=== PATIENT | male | born 1965 | race Caucasian/White ===

== ENCOUNTER 2016-06-11 04:45 | Inpatient (IN) | payer OTHER ==
[2016-06-11] VITALS (24 sets, daily range): BP systolic 91–154; BP diastolic 50–90; PULSE 85–116; RESP 12–26; TEMP 98.1–101; O2SAT 95–100
[~2016-06-11] VITALS: Ht 170.2 cm; Wt 87.5 kg
[~2016-06-11 04:45] MED LIST: GLIP5 OR; GLUCTES27 XX; IBUP800 PO; LEVEMIR SQ; LISI2.5T3 PO; PIOG30 PO; [UNRECOGNIZED DRUG - OTHER] TOP; [UNRECOGNIZED DRUG - SUPPLY] SQ
[2016-06-11] MEDS ORDERED: SODIUM CHLOR 0.9% 1000 ML INJ 1,000 ML IV ONE ×4 (05:05→06:00)
[2016-06-11] MEDS ORDERED: NOVONP2 SQ ×2 (05:06)
[2016-06-11] MEDS ORDERED: CALCIUM GLUCONATE 10% 1 GM/10 ML VIAL SLOW IVP ONE (05:15)
[2016-06-11] MEDS ORDERED: SODIUM CHLORIDE 0.9% FLUSH 5 ML FLUSH IVF PRN (05:15)
[2016-06-11] MEDS ORDERED: INSULIN HUMAN REGULAR 1,000 UNITS/10 ML VIAL IV PUSH ONE ×4 (05:15→18:30)
[2016-06-11] MEDS ORDERED: SODIUM BICARBONATE 8.4% SOLN 50 MEQ/50 ML VIAL SLOW IVP ONE (05:15)
[2016-06-11] MEDS ORDERED: SODIUM POLYSTYRENE SULFONATE SUSP 15 GM/60 ML CUP PO ONE (05:15)
[2016-06-11 05:22] LABS: BLOOD GAS BASE EXCESS -27.4 mmol/L (-2-2); BLOOD GAS HCO3 3 mmol/L (22-26); BLOOD GAS METHEMOGLOBIN 2.5 % (0-2); BLOOD GAS O2 HGB SATURATION 92 % (90-100); BLOOD GAS OXYGEN CONTENT 15.6 Vol % (12.0-20.0); BLOOD GAS PCO2 16 mmHg (38-42); BLOOD GAS PO2 132 mmHG (61-120); BLOOD GAS TOTAL HGB 11.9 G/DL (12.0-16.0); CRITICAL VALUE YES; DRAW SITE RT RADIAL; FIO2 21 %; NUMBER OF ARTERIAL PUNCTURES 1; OXYGEN DEVICE ROOM AIR; STAT YES; TEMP CORR TO 98.6; ULNAR PULSE PRESENT
--- NOTE | 2016-06-11 05:23 | PD ---
HPI Chief Complaint: General Weakness Time Seen by Provider: 05:05 Travel History International Travel<30 days: No Contact w/Intl Traveler<30days: No History of Present Illness HPI Patient's 50 years old. He has insulin-dependent diabetes. He arrives by EMS. Blood sugar at home was read as "high." The patient has difficulty answering questions due to altered mental status. He states that he has and has not been compliant with his insulin. He states he drank orange vodka last night. Our bedside glucose" high." Hyperglycemia protocol initiated. Shortly after IV fluids were initiated the patient self discontinued his IV and began sucking on the saline. Initial ABG was 6.88/16/2.9 with a base excess of -27.4. Patient was intubated shortly thereafter. PFSH Past Medical History Arthritis: No Asthma: No Autoimmune Disease: No Blood Disorders: No Anxiety: No Depression: No Heart Rhythm Problems: No Cancer: No Cardiovascular Problems: No High Cholesterol: No Chemotherapy: No Chest Pain: No Congestive Heart Failure: No COPD: No Cerebrovascular Accident: No Diabetes: Yes (INSULIN DEPENDENT) Patient Takes Glucophage: No Diminished Hearing: No Endocrine: Yes GERD: No Glaucoma: No Genitourinary: No Headaches: No Hepatitis: No Hiatal Hernia: No Hypertension: No Immune Disorder: No Kidney Stones: No Musculoskeletal: No Neurologic: No Psychiatric: No Reproductive: No Respiratory: No Immunizations Current: Yes Migraines: No Myocardial Infarction: No Radiation Therapy: No Renal Failure: No Seizures: Yes (DIABETIC SEIZURE) Sickle Cell Disease: No Sleep Apnea: No Thyroid Disease: No Ulcer: No Past Surgical History Abdominal Surgery: No AICD: No Appendectomy: No Arteriovenous Shunt: No Cardiac Surgery: No Cholecystectomy: No Ear Surgery: No Endocrine Surgery: No Eye Surgery: No Genitourinary Surgery: No Gynecologic Surgery: No Insulin Pump: No Joint Replacement: No Oral Surgery: No Pacemaker: No Thoracic Surgery: No Social History Alcohol Use: No Tobacco Use: Yes (1- 2 PPD) Substance Use: No Allergies-Medications (Allergen,Severity, Reaction): Coded Allergies: Metformin (Verified Adverse Reaction, Mild, Diarrhea, 06/11/16) Reported Meds & Prescriptions Reported Meds & Active Scripts Active Contour Next Blood Glucose Test Strip #25 (Blood Glucose Test Strips) Strp 1 Strip XX TID [Kimberly Contour Strips] 1 Unit TOP TID [monoject1 cc syringe] 1 Syringe SQ TID Reported Novolin N Inj (Insulin Human NPH) 1,000 Unit/10 Ml Vial 0 SQ DIRECTED Sliding Scale As Directed. Novolin N Inj (Insulin Human NPH) 1,000 Unit/10 Ml Vial 30 Units SQ DAILY Review of Systems ROS Limitations: Clinical Condition Physical Exam Narrative GENERAL: 50-year-old male moderate to severe distress and cooperative SKIN: Warm and dry. HEAD: Atraumatic. Normocephalic. EYES: Pupils equal and round. No scleral icterus. No injection or drainage. ENT: No nasal bleeding or discharge. Mucous membranes dry. NECK: Trachea midline. No JVD. CARDIOVASCULAR: Mild tachycardia. Regular rhythm. RESPIRATORY: Mild tachypnea. Lungs clear. GASTROINTESTINAL: Abdomen soft, non-tender, nondistended. Hepatic and splenic margins not palpable. MUSCULOSKELETAL: No obvious deformities. No clubbing. No cyanosis. No edema. NEUROLOGICAL: Responds to voice. Moves all extremities. Speech is comprehensive although the patient is slow to respond. PSYCHIATRIC: unable to assess. Data Data Last Documented VS Vital Signs Date Time Temp Pulse Resp B/P Pulse Ox O2 Delivery O2 Flow Rate FiO2 06/11/16 06:46 108 18 136/78 99 Ventilator 70 06/11/16 05:55 2 06/11/16 04:53 98.9 Orders Electrocardiogram (06/11/16 05:05) Complete Blood Count With Diff (06/11/16 05:05) Comprehensive Metabolic Panel (06/11/16 05:05) Magnesium (Mg) (06/11/16 05:05) Phosphorus (Po4) (06/11/16 05:05) Beta Hydroxybutyrate (Acetone) (06/11/16 05:05) Urinalysis - C+S If Indicated (06/11/16 05:05) Arterial Blood Gas (Abg) (06/11/16 05:05) Blood Glucose (06/11/16 05:05) Blood Glucose (06/11/16 06:05) Ecg Monitoring (06/11/16 05:05) Iv Access Insert/Monitor (06/11/16 05:05) Oximetry (06/11/16 05:05) Oxygen Administration (06/11/16 05:05) NPO (06/11/16 05:05) Sodium Chlor 0.9% 1000 Ml Inj (Ns 1000 M (06/11/16 05:05) Sodium Chlor 0.9% 1000 Ml Inj (Ns 1000 M (06/11/16 05:35) Sodium Chloride 0.9% Flush (Ns Flush) (06/11/16 05:15) Sodium Chlor 0.9% 1000 Ml Inj (Ns 1000 M (06/11/16 05:05) Lipase (06/11/16 05:05) Insulin Human Regular Inj (Novolin R Inj (06/11/16 05:15) Calcium Gluconate Inj (Calcium Gluconate (06/11/16 05:15) Sodium Bicarbonate 8.4% Inj (Sodium Bica (06/11/16 05:15) Sodium Polysty Sulfate Liq (Kayexalate L (06/11/16 05:15) Alcohol (Ethanol) (06/11/16 05:21) Drug Screen, Random Urine (06/11/16 05:21) Propofol 1000 Mg/100 Ml Inj (Diprivan 10 (06/11/16 05:51) Etomidate Inj (Amidate Inj) (06/11/16 05:51) Rocuronium Inj (Zemuron Inj) (06/11/16 05:52) Chest, Single Ap (06/11/16 ) Arterial Blood Gas (Abg) (06/11/16 ) Propofol 1000 Mg/100 Ml Inj (Diprivan 10 (06/11/16 06:00) Etomidate Inj (Amidate Inj) (06/11/16 06:00) Rocuronium Inj (Zemuron Inj) (06/11/16 06:00) Sodium Chlor 0.9% 1000 Ml Inj (Ns 1000 M (06/11/16 06:00) Stephen-Gastric Tube Insert/Mon (06/11/16 06:05) Urinary Catheter Insert/Apply (06/11/16 06:05) B-Type Natriuretic Peptide (06/11/16 06:44) Piperacil-Tazo 2.25 Gm Premix (Zosyn 2.2 (06/11/16 07:15) Insulin Human Regular Inj (Novolin R Inj (06/11/16 07:15) Admit Order (Ed Use Only) (06/11/16 07:15) Labs Laboratory Tests Test 2/19/06/11/16 06/11/16 06/11/16 05:05 05:08 06:00 06:35 Blood Gas Puncture Site RT RADIAL RT RADIAL Blood Gas Patient Temperature 98.6 98.6 Blood Gas HCO3 3 mmol/L 8 mmol/L Blood Gas Base Excess -27.4 mmol/L -23.0 mmol/L Blood Gas Oxygen Saturation 92 % 88 % Arterial Blood pH 6.88 6.85 Arterial Blood Partial 16 mmHg 46 mmHg Pressure CO2 Arterial Blood Partial 132 mmHG 91 mmHG Pressure O2 Arterial Blood Oxygen Content 15.6 Vol % 15.4 Vol % Arterial Blood 2.0 % 1.5 % Carboxyhemoglobin Arterial Blood Methemoglobin 2.5 % 2.6 % Blood Gas Hemoglobin 11.9 G/DL 12.3 G/DL Oxygen Delivery Device ROOM AIR VENTILATOR Blood Gas Inspired Oxygen 21 % 70 % Sodium Level 130 MEQ/L Potassium Level 7.3 MEQ/L Chloride Level 97 MEQ/L Carbon Dioxide Level LESS THAN 5.0 MEQ/L Anion Gap 28 MEQ/L Blood Urea Nitrogen 52 MG/DL Creatinine 3.77 MG/DL Estimat Glomerular Filtration 17 ML/MIN Rate Random Glucose 1100 MG/DL Calcium Level 6.9 MG/DL Protein Corrected Calcium 7.7 MG/DL Phosphorus Level 8.8 MG/DL Magnesium Level 2.9 MG/DL Total Bilirubin 0.6 MG/DL Aspartate Amino Transf 30 U/L (AST/SGOT) Alanine Aminotransferase 34 U/L (ALT/SGPT) Alkaline Phosphatase 110 U/L Total Protein 5.5 GM/DL Albumin 2.6 GM/DL Lipase 111 U/L B-Hydroxybutyrate 10.70 MMOL/L Urine Opiates Screen NEG Urine Barbiturates Screen NEG Urine Amphetamines Screen NEG Urine Benzodiazepines Screen NEG Urine Cocaine Screen POS Urine Cannabinoids Screen NEG Blood Gas Ventilator Setting AC18/500 5 PEEP MDM Medical Decision Making Medical Screen Exam Complete: Yes Emergency Medical Condition: Yes Medical Record Reviewed: Yes Differential Diagnosis Diabetic ketoacidosis, respiratory failure, electrolyte imbalance, nonketotic hyperglycemic state, drug abuse Narrative Course CBC & BMP Diagram 06/11/16 05:08 Potassium 7.3 Anion gap 28 Random glucose 1100 Magnesium 2.9 Albumin 2.6 Lipase 111 Betad 6.88 / 16.2 / 2.8 / -27.4 6.85 / 46.3 / 7.7 BE -23 AC 18/500 70% PEEP 5 10 units of insulin given upon arrival along with 3 g of calcium gluconate 150 mEq of bicarbonate 15 g Kayexalate. 3 L saline ordered. Zosyn started. Patient intubated. He is suffering with severe DKA. He'll be admitted to the [facility]. Discussed with Dr. Brown. Critical Care Narrative Aggregate critical care time was 35 minutes. Time to perform other separately billable procedures was not included in the critical care time. My time did not include minutes spent treating any other patients simultaneously or on activities that did not directly contribute to the patient's treatment. The services I provided to this patient were to treat and/or prevent clinically significant deterioration that could result in: Cardiopulmonary arrest, arrhythmia I provided critical care services requiring my management, as noted below: Chart data review, documentation time, medication orders and management, vital sign assessments/reviewing monitor data, ordering and reviewing lab tests, ordering and interpreting/reviewing x-rays and diagnostic studies, care of the patient and discussion of the patient with the admitting physicians. Procedures Procedure Narrative After the risks and benefits were discussed the following procedure was performed: INTUBATION: The patient was put in optimal position for the procedure. Rapid sequence intubation was initiated by me using 20 milligrams of etomidate IV and 50 milligrams of Rocuronium IV. The patient was intubated with a 8-0 cuffed endotracheal tube. Tube placement was confirmed by visualization of the tube and balloon passing through the cords, capnometry and subsequent chest x-ray. Breath sounds were equal and well aerated bilaterally postintubation. No breath sounds over stomach. Patient tolerated procedure well. Diagnosis Primary Impression: Diabetic ketoacidosis Qualified Code: E10.10 - Diabetic ketoacidosis without coma associated with type 1 diabetes mellitus Additional Impressions: Hyperkalemia Renal failure Respiratory failure Qualified Code: J96.20 - Acute on chronic respiratory failure, unspecified whether with hypoxia or hypercapnia Admitting Information Admitting Physician Requests: Gerardo Padilla MD Jun 11, 2016 05:23
[2016-06-11] MEDS ORDERED: ETOMIDATE 20 MG/10 ML VIAL ONE (05:51)
[2016-06-11] MEDS ORDERED: PROPOFOL 1000 MG/100 ML INJ 100 ML ONE (05:51)
[2016-06-11] MEDS ORDERED: ROCURONIUM INJ 50 MG/5 ML VIAL ONE (05:52)
[2016-06-11] MEDS ORDERED: ETOMIDATE 20 MG/10 ML VIAL IV PUSH ONE (06:00)
[2016-06-11] MEDS ORDERED: ROCURONIUM INJ 50 MG/5 ML VIAL IV ONE (06:00)
[2016-06-11] MEDS: PROPOFOL 1000 MG/100 ML INJ 100 ML IV SCH ×3 (06:04→13:23)
--- NOTE | 2016-06-11 06:29 | RADRPT ---
EXAM DATE/TIME: 06/11/2016 06:08 [facility] COMPARISON: No previous studies available for comparison. INDICATIONS : Post intubation. MEDICAL HISTORY : Diabetes. SURGICAL HISTORY : None. ENCOUNTER: Initial ACUITY: 1 day PAIN SCORE: Non-responsive. LOCATION: Bilateral chest FINDINGS: The cardiac silhouette is enlarged in transverse diameter. Endotracheal tube is in good position abov e the bobby. A nasogastric tube is in place with its tip in the stomach. There are findings of conge stive heart failure with interstitial and alveolar opacity bilaterally. CONCLUSION: 1. Cardiomegaly and findings of congestive heart failure. 2. Satisfactory position of endotracheal tube as above. Dipesh Miller MD on June 11, 2016 at 6:27 Board Certified Radiologist. This report was verified electronically.
[2016-06-11 06:34] LABS: AMPHETAMINE, URINE NEG (NEG); BARBITURATES, URINE NEG (NEG); COCAINE, URINE POS (NEG)
[2016-06-11 06:35] LABS: ALKALINE PHOSPHATASE 110 U/L (45-117); ALT (GPT) 34 U/L (12-78); ANION GAP 28 MEQ/L (5-15); AST (GOT) 30 U/L (15-37); BICARBONATE LESS THAN 5.0 MEQ/L (21.0-32.0); BLOOD UREA NITROGEN 52 MG/DL (7-18); CALCIUM-PROTEIN CORRECTED 7.7 MG/DL (8.5-10.1); CHLORIDE 97 MEQ/L (98-107); GLOMERULAR FILTRATION RATE 17 ML/MIN (>89); MAGNESIUM 2.9 MG/DL (1.5-2.5); SODIUM (NA) 130 MEQ/L (136-145); TOTAL BILIRUBIN ADULT 0.6 MG/DL (0.2-1.0)
[2016-06-11 06:44] LABS: BLOOD GAS CARBOXYHEMOGLOBIN 1.5 % (0-4); BLOOD GAS HCO3 8 mmol/L (22-26); BLOOD GAS METHEMOGLOBIN 2.6 % (0-2); BLOOD GAS O2 HGB SATURATION 88 % (90-100); BLOOD GAS OXYGEN CONTENT 15.4 Vol % (12.0-20.0); BLOOD GAS PCO2 46 mmHg (38-42); BLOOD GAS PO2 91 mmHG (61-120); BLOOD GAS TOTAL HGB 12.3 G/DL (12.0-16.0); CRITICAL VALUE YES; OXYGEN DEVICE VENTILATOR; TEMP CORR TO 98.6
[2016-06-11 06:45] LABS: DRAW SITE RT RADIAL; FIO2 70 %; NUMBER OF ARTERIAL PUNCTURES 1; STAT YES; ULNAR PULSE PRESENT; VENT SETTINGS AC18/500 5 PEEP
[2016-06-11 06:49] LABS: POTASSIUM 7.3 MEQ/L (3.5-5.1)
[2016-06-11] MEDS ORDERED: POTASSIUM CHLOR 20 MEQ PREMIX 100 ML IV PRN ×7 (07:15→18:30)
[2016-06-11] MEDS ORDERED: SODIUM BICARBONATE 8.4% SOLN 50 MEQ/50 ML VIAL IV PRN ×4 (07:15→18:30)
[2016-06-11] MEDS ORDERED: SODIUM PHOSPHATE INJ 15 MMOL in SODIUM CHLORIDE 0.9% INJ 100 ML IV PRN ×2 (07:15→18:30)
[2016-06-11] MEDS ORDERED: CHLORHEXIDINE GLUCONATE 2 % 1 PACK (2 CLOTHS) TOP PRN (07:15)
[2016-06-11] MEDS ORDERED: SODIUM CHLOR 0.9% 1000 ML INJ 1,000 ML IV SCH ×3 (07:15→18:30)
[2016-06-11] MEDS ORDERED: MISCELLANEOUS NURSING INFORMATION XX SCH (07:15)
[2016-06-11] MEDS: DEXT 5%-NACL 0.9% 1000 ML INJ 1,000 ML IV SCH ×4 (07:15→20:23)
[2016-06-11] MEDS ORDERED: PIPERACIL-TAZO 2.25 GM PREMIX 50 ML IV ONE (07:15)
[2016-06-11] MEDS ORDERED: fentaNYL DRIP 250 ML ONE (07:40)
[2016-06-11 07:48] LABS: BACTERIA, URINE RARE /hpf; BLOOD, URINE MOD (NEG); GLUCOSE,URINE 1000 mg/dL (NEG); HYALINE CAST, URINE 6 /lpf (RARE); KETONE, URINE 40 mg/dL (NEG); MUCUS URINE FEW /lpf (OCC); NITRITE,URINE NEG (NEG); SQUAMOUS EPITHELIAL CELL URINE 1 /hpf (0-5); TRANSITIONAL EPI CELLS, URINE <1 /hpf; URINE COLOR LIGHT-YELLOW (YELLW/STRAW)
[2016-06-11 07:51] LABS: COMMENT (UR) CULT NOT INDICATED; CULTURE IF INDICATED CULT NOT INDICATED
[2016-06-11] MEDS: SODIUM CHLOR 0.9% 1000 ML INJ 1,000 ML IV SCH ×2 (07:51→09:30)
[2016-06-11] MEDS: fentaNYL DRIP 250 ML IV SCH (07:52)
[2016-06-11] MEDS: CHLORHEXIDINE 0.12% (ORAL KIT) 15 ML CUP MT SCH ×2 (08:00→20:19)
[2016-06-11] MEDS ORDERED: MIDAZOLAM HCL 5 MG/ML VIAL (1 ML) ONE (08:11)
[2016-06-11] MEDS ORDERED: MIDAZOLAM 100 MG/ML INJ 100 ML IV SCH (08:15)
[2016-06-11] MEDS ORDERED: MIDAZOLAM HCL 5 MG/5 ML VIAL IV PUSH ONE (08:15)
[2016-06-11 08:42] LABS: AUTOMATED NEUTROPHIL # 20.8 TH/MM3 (1.8-7.7); BASOPHIL # 0.2 TH/MM3 (0-0.2); BASOPHIL % 0.8 % (0.0-2.0); HEMATOCRIT 42.7 % (39.0-51.0); LYMPH % 5.6 % (9.0-44.0); LYMPHOCYTE # 1.4 TH/MM3 (1.0-4.8); MEAN CELL VOLUME 108.8 FL (80.0-100.0); MEAN CORPUSCULAR HEMOGLOBIN 31.6 PG (27.0-34.0); MONO % 11.8 % (0.0-8.0); NEUT % 81.8 % (16.0-70.0); PLATELET COUNT 214 TH/MM3 (150-450); RED BLOOD COUNT 3.92 MIL/MM3 (4.50-5.90); RED CELL DISTRIBUTION WIDTH 14.9 % (11.6-17.2); WHITE BLOOD COUNT 25.4 TH/MM3 (4.0-11.0)
[2016-06-11 08:48] LABS: HEMO FLAGS AUTO DIFF
[2016-06-11 09:10] LABS: POTASSIUM 6.3 MEQ/L (3.5-5.1)
[2016-06-11 09:18] LABS: BLOOD GAS BASE EXCESS -21.3 mmol/L (-2-2); BLOOD GAS CARBOXYHEMOGLOBIN 2.1 % (0-4); BLOOD GAS HCO3 7 mmol/L (22-26); BLOOD GAS METHEMOGLOBIN 2.6 % (0-2); BLOOD GAS O2 HGB SATURATION 92 % (90-100); BLOOD GAS PCO2 29 mmHg (38-42); BLOOD GAS PO2 110 mmHG (61-120); BLOOD GAS TOTAL HGB 12.3 G/DL (12.0-16.0); TEMP CORR TO 98.6
[2016-06-11 09:19] LABS: CRITICAL VALUE YES; OXYGEN DEVICE VENTILATOR; VENT SETTINGS AC/18/600/PEEP10
[2016-06-11 09:20] LABS: BANDS 19 % (0-6); METAMYELOCYTES 1 % (0-1); MYELOCYTES 1 % (0-0); NEUTROPHIL # MANUAL DIFF 22.4 TH/MM3 (1.8-7.7); PLATELET ESTIMATE SMEAR NORMAL (NORMAL); PLATELET MORPHOLOGY NORMAL (NORMAL); POLYS (SEG NEUTROPHILS) 67 % (16-70); WBC DIFF SAMPLE 100
[2016-06-11 09:20] LABS: DRAW SITE RT BRACHIAL; FIO2 60 %; NUMBER OF ARTERIAL PUNCTURES 1; STAT YES
[2016-06-11 09:21] LABS: SCAN/DIFF FINAL DIFF MANUAL
[2016-06-11] MEDS: SODIUM BICARBONATE 8.4% INJ 150 MEQ in WATER STERILE FOR INJ 850 ML IV SCH ×2 (09:32→13:26)
[2016-06-11] MEDS: INSULIN REGULAR (IV INFUSION) 100 UNITS in SODIUM CHLORIDE 0.9% INJ 99 ML IV SCH ×2 (09:32→13:29)
[2016-06-11] MEDS ORDERED: SODIUM BICARBONATE 8.4% INJ 50 MEQ/50 ML SYR IV PUSH ONE (09:45)
[2016-06-11 09:47] LABS: BLOOD UREA NITROGEN 53 MG/DL (7-18)
[2016-06-11 09:52] LABS: GLOMERULAR FILTRATION RATE 18 ML/MIN (>89)
--- NOTE | 2016-06-11 09:52 | HHI.HP ---
[facility] Service Critical Care Medicine Primary Care Physician Unknown Admission Diagnosis Severe DKA, Resp Failure, HyperK, Cocaine/EtOH Diagnosis: (1) DKA (diabetic ketoacidoses) Diagnosis: Principal (2) Acute metabolic encephalopathy Diagnosis: Principal (3) Acute respiratory failure Diagnosis: Principal (4) Acute kidney failure Diagnosis: Principal (5) Hyperkalemia Diagnosis: Principal (6) Hypothermia Diagnosis: Principal (7) Severe sepsis Diagnosis: Principal (8) High anion gap metabolic acidosis Diagnosis: Principal (9) Cocaine intoxication Diagnosis: Principal Chief Complaint: Severe DKA Cocaine intoxication Travel History International Travel<30 Days: No Contact w/Intl Traveler <30 Da: No Sepsis Criteria SIRS Criteria (2 or more): Temp > 100.9 or < 96.8, Heart rate over 90, WBC > 88607, < 4000 or > 10% bands Sepsis Criteria (SIRS+source): Infect source susp/known Severe Sepsis (+one): Acute Oliguria/Renal Failure Criteria Outcome: Meets severe sepsis criteria History of Present Illness Patient is a 50-year-old [place] male with history of type 2 diabetes history of noncompliance to medications, hypertension, cocaine abuse who was brought to the emergency department by EMS. Apparently Blood sugar at home was read as high and patient was altered. He admitted to drinking orange vodka last night. Initial ABG was 6.88/16/132 with a base excess of -27.4. Patient was intubated for agitation, airway protection and severe acidemia. His blood sugar was 1100, potassium was 7.3, beta hydroxybutyrate was 10.7 consistent with severe DKA. Patient was given 10 units IV insulin and a total of 5 L normal saline bolus in the ED. DKA protocol was ordered, not started yet. For hyperkalemia along with hypocalcemia he received 3 g of calcium gluconate 150 mEq of bicarbonate 15 g Kayexalate. Zosyn given in the ED for severe hypothermia and leukocytosis. I evaluated the patient in the ICU. Patient is profoundly hypothermic temperature 92, borderline hypotensive with systolic blood pressure in the 90s. Blood urine and sputum cultures ordered. Zosyn will be continued along with 1 dose of vancomycin. Patient will be emergently started on DKA protocol. Lactic acid is pending at this time as well as troponin. His DKA precipitated by noncompliance and sepsis however acute coronary event need to be be ruled out Review of Systems ROS Limitations: Intubated, Altered Mental Status Past Family Social History Allergies: Coded Allergies: Metformin (Verified Adverse Reaction, Mild, Diarrhea, 06/11/16) Past Medical History Type 2 diabetes with noncompliance Hypertension Substance abuse/cocaine use Tobacco use Past Surgical History Unable to obtain Reported Medications Insulin Detemir (Levemir Insulin)100 Units/Ml Inj30 Units SQ BID Pioglitazone Hcl (Actos 30 mg)30 Mg Tab1 Tab PO DAILY Lisinopril 2.5 mg (Prinivil 2.5 mg)2.5 Mg Tab1 Tab PO DAILY #30 TAB Ref 3 Glipizide 5 Mg Tab5 Mg OR DAILY #30 TAB Ref 2 Ibuprofen (Motrin 800 Mg Tab)800 Mg [id number] Mg PO TID PRN #90 TABS Ref 1 Active Ordered Medications Reviewed Family History Unable to obtain Social History Smokes one pack of cigarettes a day Urine drug screen positive for cocaine Physical Exam Vital Signs Vital Signs Date Time Temp Pulse Resp B/P Pulse Ox O2 Delivery O2 Flow Rate FiO2 06/11/16 09:11 90 18 106/84 99 Ventilator 60 06/11/16 07:31 98 16 120/75 99 Ventilator 60 06/11/16 07:27 99 60 06/11/16 06:46 108 18 136/78 99 Ventilator 70 06/11/16 06:32 106 18 147/84 99 Ventilator 70 06/11/16 06:21 110 18 151/87 100 Ventilator 70 06/11/16 06:19 113 18 153/90 100 Ventilator 70 06/11/16 06:07 108 18 154/86 99 Ventilator 06/11/16 06:01 116 18 139/78 99 06/11/16 05:55 99 70 06/11/16 05:55 103 24 129/63 100 Nasal Cannula 2 06/11/16 05:30 100 24 107/65 95 Room Air 06/11/16 04:53 98.9 85 26 91/55 Physical Exam GENERAL: 50-year-old male intubated sedated critically ill hypothermic SKIN: Cool and dry. HEAD: Atraumatic. Normocephalic. EYES: Pupils equal and round. No scleral icterus. No injection or drainage. ENT: No nasal bleeding or discharge. Mucous membranes dry. Orotracheally intubated NECK: Trachea midline. No JVD. CARDIOVASCULAR: Tachycardic. Regular rhythm. RESPIRATORY: Air entry equal bilaterally clear to auscultation GASTROINTESTINAL: Abdomen soft, non-tender, nondistended. Hepatic and splenic margins not palpable. MUSCULOSKELETAL: No obvious deformities. No clubbing. No cyanosis. No edema. NEUROLOGICAL: Intubated heavily sedated on propofol Versed and fentanyl infusions. Patient moves his head moves extremities do not follow commands Laboratory Laboratory Tests Test 06/11/16 06/11/16 06/11/16 06/11/16 05:05 05:08 06:00 06:35 Blood Gas Puncture Site RT RADIAL RT RADIAL Blood Gas Patient Temperature 98.6 98.6 Blood Gas HCO3 3 8 Blood Gas Base Excess -27.4 -23.0 Blood Gas Oxygen Saturation 92 88 Arterial Blood pH 6.88 6.85 Arterial Blood Partial 16 46 Pressure CO2 Arterial Blood Partial 132 91 Pressure O2 Arterial Blood Oxygen Content 15.6 15.4 Arterial Blood 2.0 1.5 Carboxyhemoglobin Arterial Blood Methemoglobin 2.5 2.6 Blood Gas Hemoglobin 11.9 12.3 Oxygen Delivery Device ROOM AIR VENTILATOR Blood Gas Inspired Oxygen 21 70 Sodium Level 130 Potassium Level 7.3 Chloride Level 97 Carbon Dioxide Level LESS THAN 5.0 Anion Gap 28 Blood Urea Nitrogen 52 Creatinine 3.77 Estimat Glomerular Filtration 17 Rate Random Glucose 1100 Calcium Level 6.9 Protein Corrected Calcium 7.7 Phosphorus Level 8.8 Magnesium Level 2.9 Total Bilirubin 0.6 Aspartate Amino Transf 30 (AST/SGOT) Alanine Aminotransferase 34 (ALT/SGPT) Alkaline Phosphatase 110 Total Protein 5.5 Albumin 2.6 Lipase 111 Ethyl Alcohol Level LESS THAN 3 B-Hydroxybutyrate 10.70 Urine Color LIGHT-YELLOW Urine Turbidity CLEAR Urine pH 5.0 Urine Specific [place] 1.014 Urine Protein 30 Urine Glucose (UA) 1000 Urine Ketones 40 Urine Occult Blood MOD Urine Nitrite NEG Urine Bilirubin NEG Urine Urobilinogen LESS THAN 2.0 Urine Leukocyte Esterase NEG Urine RBC LESS THAN 1 Urine WBC 4 Urine Squamous Epithelial 1 Cells Urine Transitional Epithelial <1 Cells Urine Bacteria RARE Urine Hyaline Casts 6 Urine Mucus FEW Microscopic Urinalysis Comment CULT NOT INDICATED Urine Opiates Screen NEG Urine Barbiturates Screen NEG Urine Amphetamines Screen NEG Urine Benzodiazepines Screen NEG Urine Cocaine Screen POS Urine Cannabinoids Screen NEG Blood Gas Ventilator Setting AC18/500 5 PEEP Test 2/19/17 2/19/17 2/19/17 06:56 08:15 08:28 B-Type Natriuretic Peptide 136 White Blood Count 25.4 Red Blood Count 3.92 Hemoglobin 12.4 Hematocrit 42.7 Mean Corpuscular Volume 108.8 Mean Corpuscular Hemoglobin 31.6 Mean Corpuscular Hemoglobin 29.0 Concent Red Cell Distribution Width 14.9 Platelet Count 214 Mean Platelet Volume 8.7 Neutrophils (%) (Auto) 81.8 Lymphocytes (%) (Auto) 5.6 Monocytes (%) (Auto) 11.8 Eosinophils (%) (Auto) 0.0 Basophils (%) (Auto) 0.8 Neutrophils # (Auto) 20.8 Lymphocytes # (Auto) 1.4 Monocytes # (Auto) 3.0 Eosinophils # (Auto) 0.0 Basophils # (Auto) 0.2 CBC Comment AUTO DIFF Differential Total Cells 100 Counted Neutrophils % (Manual) 67 Band Neutrophils % 19 Lymphocytes % 3 Monocytes % 9 Neutrophils # (Manual) 22.4 Metamyelocytes 1 Myelocytes 1 Differential Comment FINAL DIFF MANUAL Platelet Estimate NORMAL Platelet Morphology Comment NORMAL Potassium Level 6.3 Blood Gas Puncture Site RT BRACHIAL Blood Gas Patient Temperature 98.6 Blood Gas HCO3 7 Blood Gas Base Excess -21.3 Blood Gas Oxygen Saturation 92 Arterial Blood pH 7.03 Arterial Blood Partial 29 Pressure CO2 Arterial Blood Partial 110 Pressure O2 Arterial Blood Oxygen Content 16.0 Arterial Blood 2.1 Carboxyhemoglobin Arterial Blood Methemoglobin 2.6 Blood Gas Hemoglobin 12.3 Oxygen Delivery Device VENTILATOR Blood Gas Ventilator Setting AC/18/600/PEEP10 Blood Gas Inspired Oxygen 60 Result Diagram: 06/11/1681406/11/16814 Imaging Chest x-ray shows pulmonary vascular congestion Septic Shock Reassessment Heart: Irregular Lungs: Clear Skin: Cold Peripheral Pulses: Weak Right Radial Weak Left Radial Capillary Refill: Sluggish Assessment and Plan Assessment and Plan NEURO: Acute metabolic encephalopathy Cocaine intoxication/abuse -Propofol Versed and fentanyl for sedation and ventilator synchrony -Encephalopathy seems to be metabolic due to DKA, severe sepsis -Daily sedation vacation once more stable clinically and hemodynamically -Supplement multivitamin, thiamine RESP: Acute respiratory failure Probable pneumonia -ACV 18/600/8/60% -Spontaneous breathing trials in 24 hours -Broad spectrum antibiotics with 1 dose of vancomycin and schedule Zosyn -Ventilator bundle, DuoNeb every 6 hours and when necessary CV: Hypotension History of hypertension -Normal saline IV fluids 7 L bolus and 100 mL per hour, start bicarbonate infusion 150 a MICU bicarbonate in 1 L sterile water at 150 mL per hour -Lactic acid and troponin is pending at this time, await 2d echo -Flowtrack monitoring after placing arterial line GI: -Nothing by mouth, IV Protonix : Acute kidney failure Hyperkalemia Severe anion gap metabolic acidosis -Monitor renal function closely. Levi catheter. Aggressive fluid resuscitation as above -Renal failure most likely secondary to severe dehydration from DKA, and ATN related to sepsis -If creatinine is not improving consult nephrology -Received calcium, Kayexalate and bicarbonate in the ED, but with correction of blood sugar on insulin infusion hyperkalemia should improve ID: Severe sepsis Probable pneumonia -Check urine sputum and blood cultures -Empirically treated with 1 dose of IV vancomycin and Zosyn 3.375 g IV every 6 hours HEME: Megaloblastic anemia -Monitor CBC, CMP, coags -Supplement thiamine -Check B-12 folic acid TSH ENDO: Severe DKA Type 2 diabetes with noncompliance -Initiated on DKA protocol, give 20 units of IV regular insulin -Aggressive fluid resuscitation for DKA protocol after 7 L boluses PROPH: -Bilateral lower extremity SCDs. Heparin 5000 units subcutaneous every 12, Protonix 40 mg IV daily LINES: -Utilize peripheral IVs, central line if needed CC time 102 min excluding procedures Code Status Full Discussed Condition With Dr. Matute and bedside RN Cleo Problem Qualifiers (1) DKA (diabetic ketoacidoses): (2) Cocaine intoxication: Qualified Code: F14.921 - Cocaine intoxication, with delirium Feliz Brown MD Jun 11, 2016 09:51
[2016-06-11 09:53] LABS: ALKALINE PHOSPHATASE 136 U/L (45-117); ALT (GPT) 45 U/L (12-78); ANION GAP 26 MEQ/L (5-15); AST (GOT) 49 U/L (15-37); BICARBONATE 7.9 MEQ/L (21.0-32.0); CHLORIDE 102 MEQ/L (98-107); MAGNESIUM 3.1 MG/DL (1.5-2.5); SODIUM (NA) 136 MEQ/L (136-145); TOTAL BILIRUBIN ADULT 0.7 MG/DL (0.2-1.0)
[2016-06-11] MEDS ORDERED: VANCOMYCIN INJ 1,250 MG in SODIUM CHLOR 0.9% 250 ML INJ 250 ML IV ONE (10:00)
[2016-06-11 11:37] LABS: BLOOD GAS BASE EXCESS -18.5 mmol/L (-2-2); BLOOD GAS CARBOXYHEMOGLOBIN 1.6 % (0-4); BLOOD GAS HCO3 9 mmol/L (22-26); BLOOD GAS METHEMOGLOBIN 1.4 % (0-2); BLOOD GAS O2 HGB SATURATION 95 % (90-100); BLOOD GAS OXYGEN CONTENT 15.7 Vol % (12.0-20.0); BLOOD GAS PCO2 30 mmHg (38-42); BLOOD GAS PO2 124 mmHg (61-120); BLOOD GAS TOTAL HGB 11.5 G/DL (12.0-16.0); CRITICAL VALUE YES; DRAW SITE LT RADIAL; FIO2 40 %; NUMBER OF ARTERIAL PUNCTURES 1; OXYGEN DEVICE VENTILATOR; STAT NO; TEMP CORR TO 98.6; ULNAR PULSE PRESENT
[2016-06-11] MEDS: PIPERACIL-TAZO 3.375 GM PREMIX 50 ML IV SCH ×2 (11:42→18:23)
[2016-06-11 13:43] LABS: BICARBONATE 20.5 MEQ/L (21.0-32.0); CALCIUM-PROTEIN CORRECTED 7.9 MG/DL (8.5-10.1); MAGNESIUM 2.6 MG/DL (1.5-2.5); POTASSIUM 4.1 MEQ/L (3.5-5.1); TOTAL BILIRUBIN ADULT 0.5 MG/DL (0.2-1.0)
[2016-06-11] MEDS: POTASSIUM CHLOR 20 MEQ PREMIX 100 ML IV PRN ×2 (14:07→15:37)
[2016-06-11 14:08] LABS: BLOOD GAS BASE EXCESS -10.2 mmol/L (-2-2); BLOOD GAS CARBOXYHEMOGLOBIN 1.7 % (0-4); BLOOD GAS HCO3 15 mmol/L (22-26); BLOOD GAS METHEMOGLOBIN 1.3 % (0-2); BLOOD GAS O2 HGB SATURATION 96 % (90-100); BLOOD GAS OXYGEN CONTENT 15.2 Vol % (12.0-20.0); BLOOD GAS PCO2 34 mmHg (38-42); BLOOD GAS PO2 126 mmHg (61-120); BLOOD GAS TOTAL HGB 11.1 G/DL (12.0-16.0); CRITICAL VALUE YES; OXYGEN DEVICE VENTILATOR; TEMP CORR TO 98.6
[2016-06-11 14:09] LABS: VENT SETTINGS CPAP+8/PS+10
[2016-06-11 14:10] LABS: DRAW SITE LT RADIAL; FIO2 35 %; NUMBER OF ARTERIAL PUNCTURES 1; STAT NO; ULNAR PULSE PRESENT
--- NOTE | 2016-06-11 14:22 | EKG ---
Date Performed: 06/11/2016 Time Performed: 05:00:07 PTAGE: 50 years EKG: First degree AV block Right Bundle branch block Left axis deviation Compared to previous tr acing, the Right bundle branch block, left axis deviation, and first degree AV block are new ABNORMAL ECG PREVIOUS TRACING : 08/06/2012 08.44 DOCTOR: Jea nPaul Mei Interpretating Date/Time 06/11/2016 15:07:06
[2016-06-11] MEDS ORDERED: DEXT 5%-NACL 0.9% 1000 ML INJ 1,000 ML IV SCH (18:30)
[2016-06-11] MEDS: ACETAMINOPHEN 650 MG/20.3 ML UDC PO PRN (21:16)
[2016-06-11 21:41] LABS: ANION GAP 7 MEQ/L (5-15); BETA-HYDROXYBUTYRATE 0.55 MMOL/L (0.00-0.39); BICARBONATE 27.1 MEQ/L (21.0-32.0); BLOOD UREA NITROGEN 46 MG/DL (7-18); CHLORIDE 116 MEQ/L (98-107); GLOMERULAR FILTRATION RATE 24 ML/MIN (>89); MAGNESIUM 2.5 MG/DL (1.5-2.5); POTASSIUM 3.8 MEQ/L (3.5-5.1); SODIUM (NA) 150 MEQ/L (136-145)
[2016-06-11 21:57] LABS: CALCIUM-PROTEIN CORRECTED 8.2 MG/DL (8.5-10.1)
[2016-06-11] MEDS ORDERED: POTASSIUM PHOSPHATE INJ 15 MMOL in SODIUM CHLORIDE 0.9% INJ 150 ML IV ONE (22:30)
[2016-06-12] VITALS (18 sets, daily range): BP systolic 102–107; BP diastolic 57–72; PULSE 82–102; RESP 18–28; TEMP 98.8–100.4; O2SAT 98–100
--- NOTE | 2016-06-12 00:31 | RADRPT ---
EXAM DATE/TIME: 06/12/2016 00:05 [facility] COMPARISON: No previous studies available for comparison. INDICATIONS : Altered mental status secondary to respiratory failure and DKA. RADIATION DOSE: 44.18 CTDIvol (mGy) MEDICAL HISTORY : Diabetes mellitus type 2. SURGICAL HISTORY : None. ENCOUNTER: Initial ACUITY: 1 day PAIN SCALE: Non-responsive LOCATION: cranial TECHNIQUE: Multiple contiguous axial images were obtained of the head. Using automated exposure control and adj ustment of the mA and/or kV according to patient size, radiation dose was kept as low as reasonably a chievable to obtain optimal diagnostic quality images. FINDINGS: CEREBRUM: The ventricles are normal for age. No evidence of midline shift, mass lesion, hemorrhage or acute in farction. There is a 0.8 cm hypodensity in the right frontal lobe. No mass effect is seen. No extra- axial fluid collections are seen.POSTERIOR FOSSA: The cerebellum and brainstem are intact. The 4th ventricle is midline. The cerebellopontine angle i s unremarkable. EXTRACRANIAL: The visualized portion of the orbits is intact. SKULL: The calvaria is intact. No evidence of skull fracture. CONCLUSION: 1. No acute abnormality seen. 2. 0.8 cm hypodensity in the right frontal lobe likely representing an area of focal encephalomalacia . No mass effect is seen. Kevin Augustin MD on June 12, 2016 at 0:25 Board Certified Radiologist. This report was verified electronically.
[2016-06-12] MEDS ORDERED: ASPIRIN 81 MG CHEW TAB CHEW ONE (01:15)
[2016-06-12] MEDS: DEXT 5%-NACL 0.9% 1000 ML INJ 1,000 ML IV SCH (01:24)
[2016-06-12] MEDS: PIPERACIL-TAZO 3.375 GM PREMIX 50 ML IV SCH ×4 (01:24→23:36)
[2016-06-12] MEDS: CHLORHEXIDINE GLUCONATE 2 % 1 PACK (2 CLOTHS) TOP SCH (01:24)
[2016-06-12 01:26] LABS: BICARBONATE 29.9 MEQ/L (21.0-32.0); MAGNESIUM 2.5 MG/DL (1.5-2.5); POTASSIUM 3.7 MEQ/L (3.5-5.1)
[2016-06-12 01:50] LABS: CALCIUM-PROTEIN CORRECTED 8.3 MG/DL (8.5-10.1)
[2016-06-12] MEDS ORDERED: HEPARIN SODIUM - IV 10,000 UNITS/10 ML VIAL IV ONE (02:00)
[2016-06-12] MEDS ORDERED: DEXTROSE 50% IN WATER 50 ML VIAL(D50) IV PUSH PRN ×3 (02:15→20:00)
[2016-06-12] MEDS ORDERED: INSULIN REGULAR (IV INFUSION) 100 UNITS in SODIUM CHLORIDE 0.9% INJ 99 ML IV SCH ×2 (02:15→21:00)
[2016-06-12] MEDS ORDERED: MISC INFORMATION XX ONE ×2 (02:15→20:00)
[2016-06-12] MEDS ORDERED: D5-1/2 NS + KCL 20 MEQ INJ 1,000 ML IV SCH (02:15)
[2016-06-12] MEDS ORDERED: GLUCAGON 1 MG/ML VIAL OTHER PRN ×2 (02:15→10:45)
[2016-06-12] MEDS ORDERED: INSULIN ASPART SUPPLEMENTAL SCALE SQ SCH (02:15)
[2016-06-12 02:20] LABS: HEMATOCRIT 31.7 % (39.0-51.0); MEAN CELL VOLUME 93.1 FL (80.0-100.0); MEAN CORPUSCULAR HEMOGLOBIN 31.5 PG (27.0-34.0); MEAN CORPUSCULAR HGB CONC 33.8 % (32.0-36.0); PLATELET COUNT 174 TH/MM3 (150-450); RED BLOOD COUNT 3.41 MIL/MM3 (4.50-5.90); RED CELL DISTRIBUTION WIDTH 13.4 % (11.6-17.2); REVIEW FLAG FINAL; WHITE BLOOD COUNT 15.4 TH/MM3 (4.0-11.0)
[2016-06-12 02:32] LABS: APTT (PATIENT) 26.4 SEC (24.3-30.1); PROTHROMBIN TIME - PATIENT 11.4 SEC (9.8-11.6)
[2016-06-12] MEDS: HEPARIN-D5W INJ 250 ML IV SCH ×2 (02:56→20:49)
--- NOTE | 2016-06-12 05:07 | RADRPT ---
EXAM DATE/TIME: 06/12/2016 03:52 [facility] COMPARISON: CHEST SINGLE AP, June 11, 2016, 6:08. INDICATIONS : Shortness of breath, possible pulmonary disease. MEDICAL HISTORY : Diabetes mellitus type II. SURGICAL HISTORY : None. ENCOUNTER: Subsequent ACUITY: 2 days PAIN SCORE: Non-responsive. LOCATION: Bilateral chest FINDINGS: ET tube and NG tube are well placed. The heart size is normal. The lungs are grossly clear. CONCLUSION: No acute disease. Kevin Augustin MD on June 12, 2016 at 5:06 Board Certified Radiologist. This report was verified electronically.
[2016-06-12] MEDS ORDERED: HEPARIN SODIUM - IV 10,000 UNITS/10 ML VIAL IV PRN ×2 (08:00)
[2016-06-12] MEDS: PROPOFOL 1000 MG/100 ML INJ 100 ML IV SCH ×3 (08:10→20:37)
[2016-06-12] MEDS: THIAMINE INJ 100 MG in SODIUM CHLORIDE 0.9% INJ 100 ML IV SCH (08:10)
[2016-06-12] MEDS: CHLORHEXIDINE 0.12% (ORAL KIT) 15 ML CUP MT SCH ×2 (08:12→20:00)
[2016-06-12 09:36] LABS: APTT (PATIENT) 51.3 SEC (24.3-30.1)
[2016-06-12 10:08] LABS: BICARBONATE 27.8 MEQ/L (21.0-32.0); MAGNESIUM 2.5 MG/DL (1.5-2.5); POTASSIUM 3.5 MEQ/L (3.5-5.1)
[2016-06-12 10:21] LABS: CALCIUM-PROTEIN CORRECTED 8.3 MG/DL (8.5-10.1)
[2016-06-12] MEDS ORDERED: CALCIUM GLUCONATE INJ 1 GM in SODIUM CHLORIDE 0.9% INJ 100 ML IV ONE (10:45)
--- NOTE | 2016-06-12 10:59 | HHI.CCPN ---
Subjective Remarks/Hospital Course Patient is a 50-year-old [place] male with history of type 2 diabetes history of noncompliance to medications, hypertension, cocaine abuse who was brought to the emergency department by EMS. Apparently Blood sugar at home was read as high and patient was altered. He admitted to drinking orange vodka last night. Initial ABG was 6.88/16/132 with a base excess of -27.4. Patient was intubated for agitation, airway protection and severe acidemia. His blood sugar was 1100, potassium was 7.3, beta hydroxybutyrate was 10.7 consistent with severe DKA. Patient was given 10 units IV insulin and a total of 5 L normal saline bolus in the ED. DKA protocol was ordered, not started yet. For hyperkalemia along with hypocalcemia he received 3 g of calcium gluconate 150 mEq of bicarbonate 15 g Kayexalate. Zosyn given in the ED for severe hypothermia and leukocytosis. I evaluated the patient in the ICU. Patient is profoundly hypothermic temperature 92, borderline hypotensive with systolic blood pressure in the 90s. Blood urine and sputum cultures ordered. Zosyn will be continued along with 1 dose of vancomycin. Patient will be emergently started on DKA protocol. Lactic acid is pending at this time as well as troponin. His DKA precipitated by noncompliance and sepsis however acute coronary event need to be be ruled out 06/12 Patient is sedated with Fentanyl, Diprivan and intubated. On Insulin drip 7units/hr ( AG closed) started on heparin drip overnight as troponin increased 1.31 Objective Vital Signs Date Time Temp Pulse Resp B/P Pulse Ox O2 Delivery O2 Flow Rate FiO2 06/12/16 08:01 99 35 06/12/16 06:00 91 06/12/16 04:00 99.5 18 104/65 06/11/16 09:11 Ventilator 06/11/16 05:55 2 Intake and Output 06/11/16 06/11/16 06/12/16 08:00 16:00 00:00 Intake Total 2763 ml 2050 ml Output Total 700 ml 825 ml 950 ml Balance -700 ml 1938 ml 1100 ml Result Diagram: 06/12/16 0216 06/12/16 0847 Other Results Laboratory Tests Test 06/11/16 06/11/16 06/11/16 06/11/16 11:03 11:27 12:55 13:57 Lactic Acid Level 1.7 mmol/L Blood Gas Puncture Site LT RADIAL LT RADIAL Blood Gas Patient Temperature 98.6 98.6 Blood Gas HCO3 9 mmol/L 15 mmol/L Blood Gas Base Excess -18.5 mmol/L -10.2 mmol/L Blood Gas Oxygen Saturation 95 % 96 % Arterial Blood pH 7.11 7.28 Arterial Blood Partial 30 mmHg 34 mmHg Pressure CO2 Arterial Blood Partial 124 mmHg 126 mmHg Pressure O2 Arterial Blood Oxygen Content 15.7 Vol % 15.2 Vol % Arterial Blood 1.6 % 1.7 % Carboxyhemoglobin Arterial Blood Methemoglobin 1.4 % 1.3 % Blood Gas Hemoglobin 11.5 G/DL 11.1 G/DL Oxygen Delivery Device VENTILATOR VENTILATOR Blood Gas Ventilator Setting CPAP+8/10/ CPAP+8/PS+10 Blood Gas Inspired Oxygen 40 % 35 % Sodium Level 142 MEQ/L Potassium Level 4.1 MEQ/L Chloride Level 103 MEQ/L Carbon Dioxide Level 20.5 MEQ/L Anion Gap 19 MEQ/L Blood Urea Nitrogen 51 MG/DL Creatinine 3.14 MG/DL Estimat Glomerular Filtration 21 ML/MIN Rate Random Glucose 632 MG/DL Calcium Level 6.8 MG/DL Protein Corrected Calcium 7.9 MG/DL Phosphorus Level 3.9 MG/DL Magnesium Level 2.6 MG/DL Total Bilirubin 0.5 MG/DL Aspartate Amino Transf 41 U/L (AST/SGOT) Alanine Aminotransferase 34 U/L (ALT/SGPT) Alkaline Phosphatase 101 U/L Troponin I 0.23 NG/ML Total Protein 4.9 GM/DL Albumin 2.3 GM/DL Test 06/11/16 06/12/16 06/12/16 06/12/16 20:10 00:44 02:16 04:22 Sodium Level 150 MEQ/L 155 MEQ/L Potassium Level 3.8 MEQ/L 3.7 MEQ/L Chloride Level 116 MEQ/L 119 MEQ/L Carbon Dioxide Level 27.1 MEQ/L 29.9 MEQ/L Anion Gap 7 MEQ/L 6 MEQ/L Blood Urea Nitrogen 46 MG/DL 43 MG/DL Creatinine 2.81 MG/DL 2.47 MG/DL Estimat Glomerular Filtration 24 ML/MIN 28 ML/MIN Rate Random Glucose 231 MG/DL 140 MG/DL Lactic Acid Level 1.7 mmol/L 1.6 mmol/L Calcium Level 7.3 MG/DL 7.3 MG/DL Protein Corrected Calcium 8.2 MG/DL 8.3 MG/DL Phosphorus Level 2.1 MG/DL 3.2 MG/DL Magnesium Level 2.5 MG/DL 2.5 MG/DL Troponin I 1.03 NG/ML 1.31 NG/ML Total Protein 5.4 GM/DL 5.2 GM/DL Vitamin B12 Level 681 PG/ML Folate GREATER THAN 20.0 NG/ML Thyroid Stimulating Hormone 0.402 uIU/ML 3rd Gen B-Hydroxybutyrate 0.55 MMOL/L White Blood Count 15.4 TH/MM3 Red Blood Count 3.41 MIL/MM3 Hemoglobin 10.7 GM/DL Hematocrit 31.7 % Mean Corpuscular Volume 93.1 FL Mean Corpuscular Hemoglobin 31.5 PG Mean Corpuscular Hemoglobin 33.8 % Concent Red Cell Distribution Width 13.4 % Platelet Count 174 TH/MM3 Mean Platelet Volume 6.9 FL Prothrombin Time 11.4 SEC Prothromb Time International 1.0 RATIO Ratio Activated Partial 26.4 SEC Thromboplast Time Test 06/12/16 08:47 Activated Partial 51.3 SEC Thromboplast Time Sodium Level 153 MEQ/L Potassium Level 3.5 MEQ/L Chloride Level 119 MEQ/L Carbon Dioxide Level 27.8 MEQ/L Anion Gap 6 MEQ/L Blood Urea Nitrogen 30 MG/DL Creatinine 1.85 MG/DL Estimat Glomerular Filtration 39 ML/MIN Rate Random Glucose 160 MG/DL Calcium Level 7.3 MG/DL Protein Corrected Calcium 8.3 MG/DL Phosphorus Level 2.1 MG/DL Magnesium Level 2.5 MG/DL Total Protein 5.2 GM/DL Imaging Last Impressions Chest X-Ray 06/12/16 0600 Signed Impressions: Service Date/Time: Sunday, June 12, 2016 03:52 - CONCLUSION: No acute disease. Kevin Augustin MD Head CT 06/11/16 0000 Signed Impressions: Service Date/Time: Sunday, June 12, 2016 00:05 - CONCLUSION: 1. No acute abnormality seen. 2. 0.8 cm hypodensity in the right frontal lobe likely representing an area of focal encephalomalacia. No mass effect is seen. Kevin Augustin MD Objective Remarks GENERAL: 50-year-old male intubated sedated critically ill SKIN: Warm and dry. HEAD: Atraumatic. Normocephalic. EYES: Pupils equal and round. No scleral icterus. No injection or drainage. ENT: No nasal bleeding or discharge. Mucous membranes dry. Orotracheally intubated NECK: Trachea midline. No JVD. CARDIOVASCULAR: Tachycardic. Regular rhythm. RESPIRATORY: Air entry equal bilaterally clear to auscultation GASTROINTESTINAL: Abdomen soft, non-tender, nondistended. Hepatic and splenic margins not palpable. MUSCULOSKELETAL: No obvious deformities. No clubbing. No cyanosis. No edema. NEUROLOGICAL: Sedated and intubated A/P Assessment and Plan NEURO: Acute metabolic encephalopathy Cocaine intoxication/abuse -Propofol and fentanyl for sedation and ventilator synchrony -Encephalopathy seems to be metabolic due to DKA, severe sepsis -Daily sedation vacation, monitor neuro status -Supplement multivitamin, thiamine RESP: Acute respiratory failure Probable pneumonia -ACV 18/600/5/35% -Continue with vent support keep sat >92% -Ventilator bundle, DuoNeb every 6 hours and when necessary -Start SBT daily as jeffy CV: Elevated troponin History of hypertension -Monitor HR and BP keep MAP>65mmHg. Lactic acid 1.6 -Monitor CK/trop, follow up on echo results -Continue with heparin drip per [place] protocol. Cards consulted. Given ASA x1 overnight. GI: -Start TF-Glucerna 1.5 with goal rate 45ml/hr -On IV Protonix : Acute kidney failure - improving -Monitor renal function, I/O's, electrolytes replacement per protocol. -Renal failure most likely secondary to severe dehydration from DKA, and ATN related to sepsis -Cr: 1.85 from 2.47 UO: 2575ml in 24hrs -Change IVF 1/2NS@75ml/hr ID: Severe sepsis Probable pneumonia -Continue with Zosyn 3.375 g IV every 6 hours, Vanco x1 dose yesterday -Monitor for signs of infections (fever, WBC) follow up on cxs HEME: Megaloblastic anemia -Monitor CBC, CMP, coags -Supplement thiamine ENDO: Severe DKA- AG closed Type 2 diabetes with noncompliance -Transition insulin drip to SSI with accuchecks PROPH: -Bilateral lower extremity SCDs. Heparin drip, Protonix 40 mg IV daily LINES: -Utilize peripheral IVs, CCT 30 mins Jaycob,Alaa MD Jun 12, 2016 10:59
[2016-06-12] MEDS: SODIUM CHLOR 0.45% 1000 ML INJ 1,000 ML IV SCH ×2 (11:41→20:45)
[2016-06-12] MEDS: ASPIRIN EC 81 MG TABEC PO SCH (11:41)
[2016-06-12] MEDS: INSULIN NovoLIN REGULAR SUPPLEMENTAL SCALE SQ SCH ×3 (11:46→21:04)
--- NOTE | 2016-06-12 12:03 | MB ---
cc: CYNDEE AMEZCUA DATE OF CONSULTATION: 06/12/2016 DATE OF : 1965 REASON FOR CONSULTATION Elevated troponins. HISTORY OF PRESENT ILLNESS 50-year-old male with past medical history significant for diabetes, noncompliant with medications, hypertension, cocaine abuse and alcohol abuse, that was brought into the emergency department by the EMS after being found down in his apartment. In the emergency department he was profoundly hypothermic, hypotensive, leukocytosis, acute kidney injury and in DKA. He was intubated and admitted to the intensive care unit. Here the patient's troponin' s have been trending up from 1.03 to 1.3. Thus cardiology has been consulted for further management and recommendations. The history is taken from the chart because the patient is intubated. According to reports he has no history of CAD. REVIEW OF SYSTEMS Unobtainable. PAST MEDICAL HISTORY 1. Diabetes. 2. Cocaine use. 3. Ethanol use. 4. Noncompliant with medications. PAST SURGICAL HISTORY Unobtainable. ALLERGIES METFORMIN. MEDICATIONS Home medications: 1. Insulin. 2. Lisinopril. 3. Glipizide. 4. Motrin. 5. Actos. FAMILY HISTORY Unobtainable. SOCIAL HISTORY Smokes one pack of cigarettes a day and uses cocaine. PHYSICAL EXAMINATION VITAL SIGNS: Temperature 99.5, trending down from 100.4. Pulse 91, respiratory rate 18, blood pressure 104/65. O2 100% with an FIO2 of 0.35. GENERAL: He is sedated, intubated, in no acute distress. NECK: No JVD. No carotid bruits. HEART: Regular rate and rhythm. No murmurs, rubs or gallops. LUNGS: He is vented. ABDOMEN: Soft, nontender, nondistended. Positive bowel sounds. EXTREMITIES: Pulses throughout. No cyanosis. DATA CBC: White count trending down from 25.4 to 15.4, hemoglobin 12, hematocrit 42, platelet count 214. Chemistries: Sodium 153, potassium 3.5, corrected calcium 8.3, BUN 30, creatinine trending down from 3.77 to 1.85 this morning. BNP 136. Troponin 0.15, 0.23, 1.03, and 1.31. EKG: Sinus rhythm with T-wave inversions in leads II, III, aVF and V4-V5. CT of the head: No acute process. Chest x-ray: Cardiomegaly with questionable vascular congestion. ASSESSMENT AND PLAN 50-year-old male with cardiac risk factors that include smoking and diabetes, admitted with DKA, infection, acute kidney injury and elevated troponin's. He is still having fevers, however, he is hemodynamically stable. He has EKG changes and troponin mildly elevated suggesting of acute coronary syndrome. However, given his history of noncompliance with medication as well as acute kidney injury he would not be a candidate for an early invasive study at this time. Thus I would recommend to treat him medically with IV anticoagulation, aspirin and beta len as tolerated by HR and BP. The patient should have an echocardiogram to assess LV systolic function. JOSETTE inhibitors on hold given his acute kidney injury and statin also on hold given elevated liver enzymes. When the patient has improvement from infection and DKA. Consider doing an ischemic workup with a Lexiscan stress test before discharge home. Thank you for the opportunity to take part in the care of this patient. I will be available on a p.r.n. basis for any questions or concerns. MD RICHELLE García/SULY /11:16 AM /11:42 AM KURT
[2016-06-12 13:25] LABS: BLOOD GAS BASE EXCESS 0.7 mmol/L (-2-2); BLOOD GAS CARBOXYHEMOGLOBIN 1.7 % (0-4); BLOOD GAS HCO3 24 mmol/L (22-26); BLOOD GAS METHEMOGLOBIN 1.1 % (0-2); BLOOD GAS O2 HGB SATURATION 97 % (90-100); BLOOD GAS OXYGEN CONTENT 15.4 Vol % (12.0-20.0); BLOOD GAS PCO2 34 mmHg (38-42); BLOOD GAS PO2 154 mmHg (61-120); BLOOD GAS TOTAL HGB 11.1 G/DL (12.0-16.0); TEMP CORR TO 98.6
[2016-06-12 13:26] LABS: CRITICAL VALUE NO; DRAW SITE LT RADIAL; FIO2 35 %; NUMBER OF ARTERIAL PUNCTURES 1; OXYGEN DEVICE VENTILATOR; STAT NO; ULNAR PULSE Y; VENT SETTINGS AC18/600/8PEEP
[2016-06-12 13:53] LABS: BICARBONATE 27.8 MEQ/L (21.0-32.0); MAGNESIUM 2.4 MG/DL (1.5-2.5); POTASSIUM 3.8 MEQ/L (3.5-5.1)
--- NOTE | 2016-06-12 14:24 | EKG ---
Date Performed: 06/11/2016 Time Performed: 22:41:23 PTAGE: 50 years EKG: Sinus rhythm MODERATE T-WAVE ABNORMALITY, CONSIDER LATERAL ISCHEMIA MODERATE T-WAVE ABNORMALITY, CONSIDER INFERIO R ISCHEMIA ABNORMAL ECG PREVIOUS TRACING : 06/11/2016 05.00 DOCTOR: Jayson Doherty Interpretating Date/Time 06/12/2016 14:19:40
[2016-06-12 15:41] LABS: APTT (PATIENT) 42.5 SEC (24.3-30.1)
[2016-06-12] MEDS: fentaNYL DRIP 250 ML IV SCH (17:46)
[2016-06-12 20:03] LABS: BICARBONATE 24.1 MEQ/L (21.0-32.0); MAGNESIUM 2.4 MG/DL (1.5-2.5); POTASSIUM 3.9 MEQ/L (3.5-5.1)
[2016-06-12] MEDS ORDERED: VANCOMYCIN INJ 1,250 MG in SODIUM CHLOR 0.9% 250 ML INJ 250 ML IV ONE (21:00)
[2016-06-12] MEDS: ACETAMINOPHEN 650 MG/20.3 ML UDC PO PRN (23:34)
[2016-06-13] VITALS (19 sets, daily range): BP systolic 98–127; BP diastolic 56–71; PULSE 78–100; RESP 18; TEMP 99–101.2; O2SAT 97–99
[2016-06-13 01:20] LABS: BICARBONATE 27.9 MEQ/L (21.0-32.0); MAGNESIUM 2.6 MG/DL (1.5-2.5); POTASSIUM 3.9 MEQ/L (3.5-5.1)
[2016-06-13] MEDS ORDERED: DEXTROSE 50% IN WATER 50 ML VIAL(D50) IV PUSH PRN (02:15)
[2016-06-13] MEDS ORDERED: INSULIN REGULAR 100 UNITS/100 ML NS ALGORITHM 4 IV SCH ×2 (02:15)
[2016-06-13] MEDS: CHLORHEXIDINE GLUCONATE 2 % 1 PACK (2 CLOTHS) TOP SCH (04:00)
[2016-06-13] MEDS: PIPERACIL-TAZO 3.375 GM PREMIX 50 ML IV SCH ×2 (05:03→07:53)
[2016-06-13 06:52] LABS: APTT (PATIENT) 35.5 SEC (24.3-30.1)
[2016-06-13 07:12] LABS: BICARBONATE 29.3 MEQ/L (21.0-32.0); MAGNESIUM 2.7 MG/DL (1.5-2.5); POTASSIUM 3.5 MEQ/L (3.5-5.1)
[2016-06-13] MEDS: PROPOFOL 1000 MG/100 ML INJ 100 ML IV SCH ×4 (07:52→22:17)
[2016-06-13] MEDS: ASPIRIN EC 81 MG TABEC PO SCH (07:53)
[2016-06-13] MEDS: CHLORHEXIDINE 0.12% (ORAL KIT) 15 ML CUP MT SCH ×2 (07:53→19:46)
[2016-06-13] MEDS: THIAMINE INJ 100 MG in SODIUM CHLORIDE 0.9% INJ 100 ML IV SCH (07:53)
[2016-06-13] MEDS ORDERED: LACTATED RINGER'S 1000 ML INJ 1,000 ML IV SCH (08:30)
--- NOTE | 2016-06-13 08:44 | HHI.CCPN ---
Subjective Remarks/Hospital Course Patient is a 50-year-old [place] male with history of type 2 diabetes history of noncompliance to medications, hypertension, cocaine abuse who was brought to the emergency department by EMS. Apparently Blood sugar at home was read as high and patient was altered. He admitted to drinking orange vodka last night. Initial ABG was 6.88/16/132 with a base excess of -27.4. Patient was intubated for agitation, airway protection and severe acidemia. His blood sugar was 1100, potassium was 7.3, beta hydroxybutyrate was 10.7 consistent with severe DKA. Patient was given 10 units IV insulin and a total of 5 L normal saline bolus in the ED. DKA protocol was ordered, not started yet. For hyperkalemia along with hypocalcemia he received 3 g of calcium gluconate 150 mEq of bicarbonate 15 g Kayexalate. Zosyn given in the ED for severe hypothermia and leukocytosis. I evaluated the patient in the ICU. Patient is profoundly hypothermic temperature 92, borderline hypotensive with systolic blood pressure in the 90s. Blood urine and sputum cultures ordered. Zosyn will be continued along with 1 dose of vancomycin. Patient will be emergently started on DKA protocol. Lactic acid is pending at this time as well as troponin. His DKA precipitated by noncompliance and sepsis however acute coronary event need to be be ruled out 06/12 Patient is sedated with Fentanyl, Diprivan and intubated. On Insulin drip 7units/hr ( AG closed) started on heparin drip overnight as troponin increased 1.31 06/13 Patient is sedated with Diprivan and intubated. Off Fentanyl drip. Spiked fever with T: 101.2 Placed back on insulin drip overnight 7u/hr. Objective Vital Signs Date Time Temp Pulse Resp B/P Pulse Ox O2 Delivery O2 Flow Rate FiO2 06/13/16 08:01 99 35 06/13/16 06:00 89 06/13/16 04:00 100.8 98/56 06/12/16 16:00 22 06/11/16 09:11 Ventilator 06/11/16 05:55 2 Intake and Output 06/12/16 06/12/16 06/13/16 08:00 16:00 00:00 Intake Total 1500 ml 1070 ml 1564 ml Output Total 800 ml 600 ml 1400 ml Balance 700 ml 470 ml 164 ml Result Diagram: 06/12/16 0216 06/13/16 0605 Other Results Laboratory Tests Test 06/12/16 06/12/16 06/12/16 06/12/16 08:47 13:08 15:07 18:45 Activated Partial 51.3 SEC 42.5 SEC Thromboplast Time Sodium Level 153 MEQ/L 155 MEQ/L 151 MEQ/L Potassium Level 3.5 MEQ/L 3.8 MEQ/L 3.9 MEQ/L Chloride Level 119 MEQ/L 120 MEQ/L 115 MEQ/L Carbon Dioxide Level 27.8 MEQ/L 27.8 MEQ/L 24.1 MEQ/L Anion Gap 6 MEQ/L 7 MEQ/L 12 MEQ/L Blood Urea Nitrogen 30 MG/DL 26 MG/DL 24 MG/DL Creatinine 1.85 MG/DL 1.60 MG/DL 1.77 MG/DL Estimat Glomerular Filtration 39 ML/MIN 46 ML/MIN 41 ML/MIN Rate Random Glucose 160 MG/DL 168 MG/DL 452 MG/DL Calcium Level 7.3 MG/DL 7.5 MG/DL 7.5 MG/DL Protein Corrected Calcium 8.3 MG/DL Phosphorus Level 2.1 MG/DL 1.8 MG/DL 1.8 MG/DL Magnesium Level 2.5 MG/DL 2.4 MG/DL 2.4 MG/DL Total Protein 5.2 GM/DL Total Creatine Kinase 865 U/L Creatine Kinase MB 7.0 NG/ML Creatine Kinase MB % 0.8 % Troponin I 0.74 NG/ML Test 06/13/16 06/13/16 00:20 06:05 Sodium Level 153 MEQ/L 156 MEQ/L Potassium Level 3.9 MEQ/L 3.5 MEQ/L Chloride Level 118 MEQ/L 121 MEQ/L Carbon Dioxide Level 27.9 MEQ/L 29.3 MEQ/L Anion Gap 7 MEQ/L 6 MEQ/L Blood Urea Nitrogen 23 MG/DL 18 MG/DL Creatinine 1.61 MG/DL 1.55 MG/DL Estimat Glomerular Filtration 45 ML/MIN 48 ML/MIN Rate Random Glucose 358 MG/DL 196 MG/DL Calcium Level 7.5 MG/DL 7.9 MG/DL Phosphorus Level 1.8 MG/DL 1.6 MG/DL Magnesium Level 2.6 MG/DL 2.7 MG/DL Activated Partial 35.5 SEC Thromboplast Time Imaging Last Impressions Chest X-Ray 06/12/16 0600 Signed Impressions: Service Date/Time: Sunday, June 12, 2016 03:52 - CONCLUSION: No acute disease. Kevin Augustin MD Head CT 06/11/16 0000 Signed Impressions: Service Date/Time: Sunday, June 12, 2016 00:05 - CONCLUSION: 1. No acute abnormality seen. 2. 0.8 cm hypodensity in the right frontal lobe likely representing an area of focal encephalomalacia. No mass effect is seen. Kevin Augustin MD Objective Remarks GENERAL: 50-year-old male intubated sedated critically ill SKIN: Warm and dry. HEAD: Atraumatic. Normocephalic. EYES: Pupils equal and round. No scleral icterus. No injection or drainage. ENT: No nasal bleeding or discharge. Mucous membranes dry. Orotracheally intubated NECK: Trachea midline. No JVD. CARDIOVASCULAR: Tachycardic. Regular rhythm. RESPIRATORY: Air entry equal bilaterally clear to auscultation GASTROINTESTINAL: Abdomen soft, non-tender, nondistended. Hepatic and splenic margins not palpable. MUSCULOSKELETAL: No obvious deformities. No clubbing. No cyanosis. No edema. NEUROLOGICAL: Sedated and intubated A/P Assessment and Plan NEURO: Acute metabolic encephalopathy Cocaine intoxication/abuse -Propofol for sedation and ventilator synchrony -Encephalopathy seems to be metabolic due to DKA, severe sepsis -Daily sedation vacation, monitor neuro status -Supplement multivitamin, thiamine RESP: Acute respiratory failure Probable pneumonia -ACV 18/600/8/35% -Continue with vent support keep sat >92% -Ventilator bundle, DuoNeb every 6 hours and when necessary -SBT daily as jeffy CV: Elevated troponin History of hypertension -Monitor HR and BP keep MAP>65mmHg. Lactic acid 1.6 -Follow up on echo results. Continue ASA 81mg daily -Continue with heparin drip per CT protocol. Cards -Dr. Diaz GI: -On TF-Glucerna 1.5 with goal rate 45ml/hr -IV Protonix for GI prophylaxis : Acute kidney failure - improving Hypernatremia -Monitor renal function, I/O's, electrolytes replacement per protocol. Will need phos replacement today -Renal failure most likely secondary to severe dehydration from DKA, and ATN related to sepsis -Cr: 1.55 from 1.61 with UO: 2500 ml in 24 hrs -Change IVF LR@75ml/hr, place on Free H20 250ml Q6, monitor sodium level. ID: Severe sepsis Probable pneumonia Sputum cx 06/11 GNR, Beta strep, staph Aureus -Continue with Zosyn 3.375 g IV every 6 hours, ID eval -Monitor for signs of infections (fever, WBC)panculture for new onset fever, ID eval. HEME: Megaloblastic anemia -Monitor CBC, CMP, coags -Supplement thiamine ENDO: Severe DKA- AG closed Type 2 diabetes with noncompliance -On Insulin drip for glycemic control PROPH: -Bilateral lower extremity SCDs. Heparin drip, Protonix 40 mg IV daily LINES: -Utilize peripheral IVs, CCT 30 mins Daniel Devries MD Jun 13, 2016 08:44
[2016-06-13] MEDS: FREE WATER G-TUBE SCH ×3 (08:54→19:46)
[2016-06-13] MEDS ORDERED: GLUCAGON 1 MG/ML VIAL OTHER PRN (09:30)
[2016-06-13] MEDS ORDERED: INSULIN NovoLIN REGULAR SUPPLEMENTAL SCALE SQ SCH ×2 (10:00→16:00)
[2016-06-13 10:28] LABS: AUTOMATED NEUTROPHIL # 4.7 TH/MM3 (1.8-7.7); BASOPHIL % 0.6 % (0.0-2.0); EOSINOPHIL # 0.1 TH/MM3 (0-0.4); HEMATOCRIT 30.6 % (39.0-51.0); HEMO FLAGS DIFF FINAL; LYMPH % 27.6 % (9.0-44.0); LYMPHOCYTE # 2.1 TH/MM3 (1.0-4.8); MEAN CELL VOLUME 93.8 FL (80.0-100.0); MEAN CORPUSCULAR HEMOGLOBIN 32.1 PG (27.0-34.0); MEAN CORPUSCULAR HGB CONC 34.3 % (32.0-36.0); MONO % 7.5 % (0.0-8.0); NEUT % 63.3 % (16.0-70.0); PLATELET COUNT 148 TH/MM3 (150-450); RED BLOOD COUNT 3.26 MIL/MM3 (4.50-5.90); RED CELL DISTRIBUTION WIDTH 13.9 % (11.6-17.2); WHITE BLOOD COUNT 7.4 TH/MM3 (4.0-11.0)
--- NOTE | 2016-06-13 12:25 | EC ---
Study Study Date:06/12/2016 STUDY CONCLUSIONS SUMMARY - Left ventricle: The cavity size was normal. Wall thickness was normal. Systolic function was normal. The estimated ejection fraction was in the range of 50% to 55%. Wall motion was normal; there were no regional wall motion abnormalities. - Mitral valve: Mild regurgitation. - Tricuspid valve: Mild regurgitation. If LV function is below 40, please consider prescribing an ACEI or ARB or document rationale for non-use. PROCEDURE DATA STUDY STATUS: Elective. Procedure: Transthoracic echocardiography. Image quality was good. Scanning was performed from the parasternal, apical, and subcostal acoustic windows. Study completion: The patient tolerated the procedure well. Transthoracic echocardiography. M-mode, complete 2D, complete spectral Doppler, and color Doppler. Patient status: Inpatient. CARDIAC ANATOMY LEFT VENTRICLE: The cavity size was normal. Wall thickness was normal. Systolic function was normal. The estimated ejection fraction was in the range of 50% to 55%. Wall motion was normal; there were no regional wall motion abnormalities. AORTIC VALVE: Trileaflet; normal thickness leaflets. Doppler: Transvalvular velocity was within the normal range. There was no stenosis. No regurgitation. AORTA: Aortic root: The aortic root was normal in size. MITRAL VALVE: Structurally normal valve. Doppler: Transvalvular velocity was within the normal range. There was no evidence for stenosis. Mild regurgitation. LEFT ATRIUM: The atrium was normal in size. RIGHT VENTRICLE: The cavity size was normal. Wall thickness was normal. PULMONIC VALVE: Doppler: Transvalvular velocity was within the normal range. There was no evidence for stenosis. No regurgitation. TRICUSPID VALVE: Structurally normal valve. Doppler: Transvalvular velocity was within the normal range. Mild regurgitation. PULMONARY ARTERY: The main pulmonary artery was normal-sized. Systolic pressure was within the normal range. RIGHT ATRIUM: The atrium was normal in size. PERICARDIUM: There was no pericardial effusion. SYSTEMIC VEINS: Inferior vena cava: The vessel was normal in size. BASIC MEASUREMENTS ADULT NORMAL Left ventricle LV internal dimension, ED, chordal level, 51.7 mm 43-52 PLAX LV internal dimension, ES, chordal level, 38 mm 23-38 PLAX Fractional shortening, chordal level, PLAX *26 % >29 LV posterior wall thickness, ED 8.57 mm IVS/LVPW ratio, ED 1.19 <1.3 Ventricular septum Septal thickness, ED 10.2 mm Aortic valve Leaflet separation 24 mm 15-26 Right ventricle RV internal dimension, ED, PLAX 26.5 mm 19-38 BASIC MEASUREMENTS ADULT NORMAL Aortic valve Leaflet separation 24 mm 15-26 Aorta Root diameter, ED 37 mm 20-37 Left atrium Anterior-posterior dimension, ES 35 mm 19-40 LA/aortic root ratio 0.95 LEGEND: Mean values are shown as u=mean value. Asterisk (*) luu values outside specified normal range. Prepared and signed by Jayson Doherty [id number]
--- NOTE | 2016-06-13 12:48 | PD.ID.CON ---
History of Present Illness Service ID Consult Requested By Reason for Consult Evaluation and Mment of Pneumonia Primary Care Physician Unknown Diagnoses: History of Present Illness Most of the history was obtained from review of medical records. is a 50 y/o [place] male with PMHx signficant for DM ? type 2, non compliance with medications, HTN, Cocaine abuse who was brought to the emergency department by EMS. Reportedly, his blood sugar at home was read as high and patient was altered. He admitted to drinking orange vodka last night. Initial ABG was 6.88/16/132 with a base excess of -27.4. Patient was intubated for agitation, airway protection and severe acidemia. His blood sugar was 1100, potassium was 7.3, beta hydroxybutyrate was 10.7 consistent with severe DKA. Patient was given 10 units IV insulin and a total of 5 L normal saline bolus in the ED. Patient was seen by CCM MD and DM protocol initiated, Sepsis workup initiated. Patient was profoundly hypothermia at 92 F, hypotensive. Patient was started on Zosyn IV and 1 dose of Vanco given. On 06/13 He spiked fever with T: 101.2 F. ID consulted for evaluation and Mment of New fevers and Pneumonia. At the time of my evaluation patient is intubated, was being tried on sedation vacation and was agitated so being sedated back again. He was moving all 4 extremities. He had adequate UO, no rash and no diarrhea. Review of Systems ROS Limitations: Intubated Past Family Social History Allergies: Coded Allergies: Metformin (Verified Adverse Reaction, Mild, Diarrhea, 06/11/16) *MDRO Multi-Drug Resistant Organism (Verified Adverse Reaction, Unknown, MRSA, 06/12/16) MRSA PCR (nares) POSITIVE - 06/11/16 Past Medical History Type 2 diabetes with noncompliance Hypertension Substance abuse/cocaine use Tobacco use Past Surgical History unknown. Reported Medications Reported Meds & Active Scripts Active [Kimberly Contour Strips] 1 Unit TOP TID Reported Novolin N Inj (Insulin Human NPH) 1,000 Unit/10 Ml Vial 0 SQ DIRECTED Sliding Scale As Directed. Novolin N Inj (Insulin Human NPH) 1,000 Unit/10 Ml Vial 30 Units SQ DAILY Insulin Detemir (Levemir Insulin)100 Units/Ml Inj30 Units SQ BID Pioglitazone Hcl (Actos 30 mg)30 Mg Tab1 Tab PO DAILY Lisinopril 2.5 mg (Prinivil 2.5 mg)2.5 Mg Tab1 Tab PO DAILY #30 TAB Ref 3 Glipizide 5 Mg Tab5 Mg OR DAILY #30 TAB Ref 2 Ibuprofen (Motrin 800 Mg Tab)800 Mg [id number] Mg PO TID PRN #90 TABS Ref 1 Active Ordered Medications Current Medications Medications (Trade) Dose Ordered Sig/Matt Route Start Time Stop Time Status Last Admin (NS Flush) 2 ml UNSCH PRN IVF 06/11/16 05:15 Miscellaneous Information 1 Q361D XX 06/11/16 07:15 06/11/16 07:15 (Chlorhexidine 2% Cloth) 3 pack Taper DAILY@04 TOP 06/12/16 04:00 06/08/17 03:59 06/13/16 04:00 (Chlorhexidine 2% Cloth) 3 pack UNSCH PRN TOP 06/11/16 07:15 Chlorhexidine Gluconate 15 ml 15 ml BID@08,20 MT 06/11/16 08:00 06/13/16 07:53 Propofol 100 ml @ 0 mls/hr TITRATE IV 06/11/16 07:30 06/13/16 07:52 Fentanyl Citrate 250 ml @ 0 mls/hr TITRATE IV 06/11/16 07:30 06/12/16 17:46 Thiamine HCl 100 mg/Sodium Chloride 101 ml @ 101 mls/hr DAILY IV 06/12/16 09:00 06/16/16 08:59 06/13/16 07:53 Potassium Chloride 100 ml @ 50 mls/hr Q2H PRN IV 06/11/16 18:30 Potassium Chloride 100 ml @ 50 mls/hr Q2H PRN IV 06/11/16 18:30 Potassium Chloride 100 ml @ 50 mls/hr Q2H PRN IV 06/11/16 18:30 (KCl 20 Meq Premix Inj) 100 ml @ 50 mls/hr Q2H PRN IV 06/11/16 18:30 (Sodium Bicarbonate 8.4% Inj) 100 meq UNSCH PRN IV 06/11/16 18:30 Sodium Bicarbonate 50 meq 50 meq UNSCH PRN IV 06/11/16 18:30 (Sodium Phosphate Inj/NS Inj) 105 ml @ 25 mls/hr UNSCH PRN IV 06/11/16 18:30 06/12/16 20:38 (Tylenol 650 Mg/ 20 ml Liq) 650 mg Q4H PRN PO 06/11/16 21:15 06/12/16 23:34 (Heparin Inj) 5,000 units UNSCH PRN IV 06/12/16 08:00 Heparin Sodium (Porcine) 2500 units 2,500 units UNSCH PRN IV 06/12/16 08:00 (Heparin-D5W Inj) 250 ml @ 0 mls/hr TITRATE IV 06/12/16 02:00 06/12/16 20:49 Aspirin 81 mg 81 mg DAILY PO 06/12/16 11:30 06/13/16 07:53 (Zosyn 3.375 Gm Premix) 50 ml @ 100 mls/hr Q6H IV 06/13/16 00:00 06/13/16 07:53 (Free Water) VOLUME OF WATER: ( 250 ) ML Q6H G-TUBE 06/13/16 09:00 06/13/16 08:54 (D50w (Vial) Inj) 25 ml UNSCH PRN IV PUSH 06/13/16 09:30 06/13/16 15:46 (Glucagon Inj) 1 mg UNSCH PRN OTHER 06/13/16 09:30 Insulin Human Regular 1 1 Q2H SQ 06/13/16 16:00 (D5W 1000 ml Inj) 1,000 ml @ 75 mls/hr [id number] IV 06/13/16 16:00 Family History Could not be obtained. Social History Smokes one pack of cigarettes a day Urine drug screen positive for cocaine Has a mother and sister who visited him. Physical Exam Vital Signs Vital Signs Date Time Temp Pulse Resp B/P Pulse Ox O2 Delivery O2 Flow Rate FiO2 06/13/16 12:00 99.3 86 18 102/56 98 06/13/16 12:00 85 06/13/16 12:00 35 06/13/16 11:25 97 35 06/13/16 10:00 89 06/13/16 08:01 99 35 06/13/16 08:00 99.9 87 18 106/61 98 06/13/16 08:00 35 06/13/16 08:00 90 06/13/16 06:00 89 06/13/16 04:17 98 35 06/13/16 04:00 35 06/13/16 04:00 100 06/13/16 04:00 100.8 100 98/56 99 06/13/16 02:00 90 06/13/16 00:09 98 35 06/13/16 00:00 101.2 92 105/57 98 06/13/16 00:00 92 06/13/16 00:00 35 06/12/16 22:00 95 06/12/16 20:00 97 06/12/16 20:00 35 06/12/16 20:00 100.2 97 107/57 98 06/12/16 19:45 99 35 06/12/16 18:00 98 06/12/16 18:00 100 35 06/12/16 16:00 99.3 93 22 104/57 98 06/12/16 16:00 92 06/12/16 16:00 35 06/12/16 14:00 88 Physical Exam GENERAL: This is a well-nourished, well-developed patient, in no apparent distress. SKIN: No rashes, ecchymoses or lesions. Cool and dry. HEAD: Atraumatic. Normocephalic. No temporal or scalp tenderness. EYES: Pupils equal round and reactive. Extraocular motions intact. No scleral icterus. No injection or drainage. ENT: Intubated. NECK: Trachea midline. Supple, nontender, no meningeal signs. CARDIOVASCULAR: Regular rate and rhythm without murmurs, gallops, or rubs. RESPIRATORY: Clear to auscultation. Breath sounds equal bilaterally. GASTROINTESTINAL: Abdomen soft, non-tender, nondistended. MUSCULOSKELETAL: Extremities without clubbing, cyanosis, or edema. NEUROLOGICAL: Opens eyes. Agitated. Grossly non focal. Moves all 4 extremities. Psych: agitated on vent. IV line sites with no e/o infection. Laboratory Laboratory Tests Test 06/12/16 06/12/16 06/12/16 06/13/16 13:08 15:07 18:45 00:20 Sodium Level 155 151 153 Potassium Level 3.8 3.9 3.9 Chloride Level 120 115 118 Carbon Dioxide Level 27.8 24.1 27.9 Anion Gap 7 12 7 Blood Urea Nitrogen 26 24 23 Creatinine 1.60 1.77 1.61 Estimat Glomerular Filtration 46 41 45 Rate Random Glucose 168 452 358 Calcium Level 7.5 7.5 7.5 Phosphorus Level 1.8 1.8 1.8 Magnesium Level 2.4 2.4 2.6 Total Creatine Kinase 865 Creatine Kinase MB 7.0 Creatine Kinase MB % 0.8 Troponin I 0.74 Activated Partial 42.5 Thromboplast Time Test 06/13/16 06/13/16 06:05 10:10 Activated Partial 35.5 Thromboplast Time Sodium Level 156 Potassium Level 3.5 Chloride Level 121 Carbon Dioxide Level 29.3 Anion Gap 6 Blood Urea Nitrogen 18 Creatinine 1.55 Estimat Glomerular Filtration 48 Rate Random Glucose 196 Calcium Level 7.9 Phosphorus Level 1.6 Magnesium Level 2.7 White Blood Count 7.4 Red Blood Count 3.26 Hemoglobin 10.5 Hematocrit 30.6 Mean Corpuscular Volume 93.8 Mean Corpuscular Hemoglobin 32.1 Mean Corpuscular Hemoglobin 34.3 Concent Red Cell Distribution Width 13.9 Platelet Count 148 Mean Platelet Volume 7.9 Neutrophils (%) (Auto) 63.3 Lymphocytes (%) (Auto) 27.6 Monocytes (%) (Auto) 7.5 Eosinophils (%) (Auto) 1.0 Basophils (%) (Auto) 0.6 Neutrophils # (Auto) 4.7 Lymphocytes # (Auto) 2.1 Monocytes # (Auto) 0.6 Eosinophils # (Auto) 0.1 Basophils # (Auto) 0.0 CBC Comment DIFF FINAL Differential Comment Date/Time Procedure Status Source Growth 06/13/16 09:30 Gram Stain Received Sputum Endotracheal Pending 06/13/16 09:30 Sputum Culture Received Sputum Endotracheal Pending 06/13/16 09:20 Aerobic Blood Culture Received Blood Peripheral Pending 06/13/16 09:20 Anaerobic Blood Culture Received Blood Peripheral Pending 06/11/16 11:03 Aerobic Blood Culture - Preliminary Resulted Blood Peripheral NO GROWTH IN 2 DAYS 06/11/16 11:03 Anaerobic Blood Culture - Preliminary Resulted Blood Peripheral NO GROWTH IN 2 DAYS 06/11/16 10:40 Gram Stain - Final Complete Sputum Endotracheal 06/11/16 10:40 Sputum Culture - Final Complete Beta Strep Not Group A Staphylococcus Aureus Klebsiella Oxytoca 06/11/16 10:20 Urine Culture - Final Complete Urine Catheterized Urine NO GROWTH IN 48 HOURS. Result Diagram: 06/13/16 1010 06/13/16 0605 Imaging Last Impressions Chest X-Ray 06/12/16 0600 Signed Impressions: Service Date/Time: Sunday, June 12, 2016 03:52 - CONCLUSION: No acute disease. Kevin Augustin MD Head CT 06/11/16 0000 Signed Impressions: Service Date/Time: Sunday, June 12, 2016 00:05 - CONCLUSION: 1. No acute abnormality seen. 2. 0.8 cm hypodensity in the right frontal lobe likely representing an area of focal encephalomalacia. No mass effect is seen. Kevin Augustin MD Assessment and Plan Assessment and Plan Possible Severe Sepsis present on admission. Aspiration Pneumonia, MSSA pneumonia Diabetic Ketoacidosis on admission, Noncompliance by history. Acute respiratory failure Acute renal failure: sepsis, prerenal Acute metabolic encephalopathy: sepsis, metabolic, drugs. Cocaine abuse. Fever after initial resolution ? Drug fever (Vanco IV and Zosyn IV) Recs: DC Zosyn IV No further Vanco needed as no MRSA isolated. Start Ceftriaxone IV Start Flagyl oral Follow cultures Follow clinically. d/w RN d.w Anne Peterson MD Jun 13, 2016 12:48
[2016-06-13] MEDS: DEXTROSE 50% IN WATER 50 ML VIAL(D50) IV PUSH PRN ×3 (13:42→17:10)
[2016-06-13] MEDS ORDERED: DEXTROSE 5% IN WATE 1000ML INJ 1,000 ML IV SCH (16:00)
[2016-06-13] MEDS: INSULIN NovoLIN REGULAR SUPPLEMENTAL SCALE SQ SCH ×7 (17:00→22:36)
[2016-06-13] MEDS: cefTRIAXone INJ 2,000 MG in SODIUM CHLORIDE 0.9% INJ 100 ML IV SCH (18:10)
[2016-06-13] MEDS ORDERED: MAGNESIUM OXIDE 400 MG TAB PO PRN (20:00)
[2016-06-13] MEDS ORDERED: POTASSIUM CL 40 MEQ/30 ML LIQ UDC PO/TUBE PRN ×2 (20:00)
[2016-06-13] MEDS ORDERED: POTASSIUM PHOSPHATE MONOBASIC 500 MG TAB PO PRN (20:00)
[2016-06-13] MEDS ORDERED: POTASSIUM PHOSPHATE INJ 30 MMOL in SODIUM CHLOR 0.9% 250 ML INJ 250 ML IV PRN (20:00)
[2016-06-13] MEDS ORDERED: POTASSIUM CHLOR 40 MEQ PREMIX 100 ML IV PRN ×2 (20:00)
[2016-06-13] MEDS ORDERED: POTASSIUM PHOSPHATE MONOBASIC 500 MG TAB PO/TUBE PRN (20:00)
[2016-06-13] MEDS ORDERED: POTASSIUM CHLOR 20 MEQ PREMIX 100 ML IV PRN ×2 (20:00)
[2016-06-13] MEDS ORDERED: SODIUM PHOSPHATE INJ 30 MMOL in SODIUM CHLOR 0.9% 250 ML INJ 240 ML IV PRN (20:00)
[2016-06-13] MEDS ORDERED: MAGNESIUM SULFATE INJ 4 GM in SODIUM CHLORIDE 0.9% INJ 92 ML IV PRN (20:00)
[2016-06-13] MEDS ORDERED: MAGNESIUM SULFATE INJ 2 GM in SODIUM CHLORIDE 0.9% INJ 96 ML IV PRN (20:00)
[2016-06-13] MEDS: HEPARIN-D5W INJ 250 ML IV SCH (20:18)
[2016-06-13] MEDS: metroNIDAZOLE 500 MG TAB PO SCH (20:20)
[2016-06-13] MEDS: fentaNYL DRIP 250 ML IV SCH (22:16)
[2016-06-13 23:17] LABS: APTT (PATIENT) 36.3 SEC (24.3-30.1)
[2016-06-14] VITALS (18 sets, daily range): BP systolic 101–131; BP diastolic 42–76; PULSE 75–99; RESP 15–26; TEMP 98.8–102.3; O2SAT 93–98
[2016-06-14] MEDS ORDERED: SODIUM CHLOR 0.9% 1000 ML INJ 1,000 ML IV SCH (00:45)
[2016-06-14] MEDS: INSULIN NovoLIN REGULAR SUPPLEMENTAL SCALE SQ SCH ×9 (00:45→23:53)
[2016-06-14] MEDS: PROPOFOL 1000 MG/100 ML INJ 100 ML IV SCH ×3 (01:12→23:54)
[2016-06-14] MEDS: FREE WATER G-TUBE SCH ×4 (03:00→20:23)
[2016-06-14] MEDS: CHLORHEXIDINE GLUCONATE 2 % 1 PACK (2 CLOTHS) TOP SCH (03:35)
[2016-06-14 04:18] LABS: AUTOMATED NEUTROPHIL # 4.1 TH/MM3 (1.8-7.7); BASOPHIL % 0.4 % (0.0-2.0); EOSINOPHIL # 0.2 TH/MM3 (0-0.4); EOSINOPHIL % 3.3 % (0.0-4.0); HEMATOCRIT 30.2 % (39.0-51.0); HEMO FLAGS DIFF FINAL; LYMPH % 29.3 % (9.0-44.0); MEAN CELL VOLUME 95.5 FL (80.0-100.0); MEAN CORPUSCULAR HGB CONC 33.5 % (32.0-36.0); MONO % 6.2 % (0.0-8.0); NEUT % 60.8 % (16.0-70.0); PLATELET COUNT 126 TH/MM3 (150-450); RED BLOOD COUNT 3.16 MIL/MM3 (4.50-5.90); WHITE BLOOD COUNT 6.8 TH/MM3 (4.0-11.0)
[2016-06-14 04:21] LABS: APTT (PATIENT) 39.9 SEC (24.3-30.1)
[2016-06-14 04:39] LABS: ANION GAP 4 MEQ/L (5-15); AST (GOT) 28 U/L (15-37); BICARBONATE 30.5 MEQ/L (21.0-32.0); BLOOD UREA NITROGEN 16 MG/DL (7-18); CHLORIDE 117 MEQ/L (98-107); GLOMERULAR FILTRATION RATE 76 ML/MIN (>89); MAGNESIUM 2.5 MG/DL (1.5-2.5); POTASSIUM 3.8 MEQ/L (3.5-5.1); SODIUM (NA) 151 MEQ/L (136-145)
[2016-06-14] MEDS: metroNIDAZOLE 500 MG TAB PO SCH ×3 (04:46→20:23)
[2016-06-14 04:49] LABS: ALKALINE PHOSPHATASE 92 U/L (45-117); ALT (GPT) 26 U/L (12-78); TOTAL BILIRUBIN ADULT 0.7 MG/DL (0.2-1.0)
[2016-06-14] MEDS: fentaNYL DRIP 250 ML IV SCH (08:43)
[2016-06-14] MEDS: ASPIRIN EC 81 MG TABEC PO SCH (08:44)
[2016-06-14] MEDS: THIAMINE INJ 100 MG in SODIUM CHLORIDE 0.9% INJ 100 ML IV SCH (08:44)
[2016-06-14] MEDS: CHLORHEXIDINE 0.12% (ORAL KIT) 15 ML CUP MT SCH ×2 (08:46→20:00)
[2016-06-14] MEDS ORDERED: BUMETANIDE INJ 1 MG/4 ML VIAL IV PUSH ONE (10:00)
--- NOTE | 2016-06-14 10:04 | HHI.CCPN ---
Subjective Remarks/Hospital Course Patient is a 50-year-old [place]an male with history of type 2 diabetes history of noncompliance to medications, hypertension, cocaine abuse who was brought to the emergency department by EMS. Apparently Blood sugar at home was read as high and patient was altered. He admitted to drinking orange vodka last night. Initial ABG was 6.88/16/132 with a base excess of -27.4. Patient was intubated for agitation, airway protection and severe acidemia. His blood sugar was 1100, potassium was 7.3, beta hydroxybutyrate was 10.7 consistent with severe DKA. Patient was given 10 units IV insulin and a total of 5 L normal saline bolus in the ED. DKA protocol was ordered, not started yet. For hyperkalemia along with hypocalcemia he received 3 g of calcium gluconate 150 mEq of bicarbonate 15 g Kayexalate. Zosyn given in the ED for severe hypothermia and leukocytosis. I evaluated the patient in the ICU. Patient is profoundly hypothermic temperature 92, borderline hypotensive with systolic blood pressure in the 90s. Blood urine and sputum cultures ordered. Zosyn will be continued along with 1 dose of vancomycin. Patient will be emergently started on DKA protocol. Lactic acid is pending at this time as well as troponin. His DKA precipitated by noncompliance and sepsis however acute coronary event need to be be ruled out 06/12 Patient is sedated with Fentanyl, Diprivan and intubated. On Insulin drip 7units/hr ( AG closed) started on heparin drip overnight as troponin increased 1.31 06/13 Patient is sedated with Diprivan and intubated. Off Fentanyl drip. Spiked fever with T: 101.2 Placed back on insulin drip overnight 7u/hr. 06/14 Patient is sedated and intubated. Off insulin drip, Afebrile. Objective Vital Signs Date Time Temp Pulse Resp B/P Pulse Ox O2 Delivery O2 Flow Rate FiO2 06/14/16 09:43 96 35 06/14/16 06:00 75 06/14/16 04:00 98.8 18 101/62 06/11/16 09:11 Ventilator 06/11/16 05:55 2 Intake and Output 06/13/16 06/13/16 06/14/16 08:00 16:00 00:00 Intake Total 916 ml 1185 ml 1802 ml Output Total 500 ml 1600 ml 275 ml Balance 416 ml -415 ml 1527 ml Result Diagram: 06/14/16 0326 06/14/16 0329 Other Results Laboratory Tests Test 06/13/16 06/13/16 06/13/16 06/13/16 10:10 15:05 22:36 22:42 White Blood Count 7.4 TH/MM3 Red Blood Count 3.26 MIL/MM3 Hemoglobin 10.5 GM/DL Hematocrit 30.6 % Mean Corpuscular Volume 93.8 FL Mean Corpuscular Hemoglobin 32.1 PG Mean Corpuscular Hemoglobin 34.3 % Concent Red Cell Distribution Width 13.9 % Platelet Count 148 TH/MM3 Mean Platelet Volume 7.9 FL Neutrophils (%) (Auto) 63.3 % Lymphocytes (%) (Auto) 27.6 % Monocytes (%) (Auto) 7.5 % Eosinophils (%) (Auto) 1.0 % Basophils (%) (Auto) 0.6 % Neutrophils # (Auto) 4.7 TH/MM3 Lymphocytes # (Auto) 2.1 TH/MM3 Monocytes # (Auto) 0.6 TH/MM3 Eosinophils # (Auto) 0.1 TH/MM3 Basophils # (Auto) 0.0 TH/MM3 CBC Comment DIFF FINAL Differential Comment Activated Partial 36.0 SEC 36.3 SEC Thromboplast Time Phosphorus Level 2.7 MG/DL Test 06/14/16 06/14/16 03:26 03:29 White Blood Count 6.8 TH/MM3 Red Blood Count 3.16 MIL/MM3 Hemoglobin 10.1 GM/DL Hematocrit 30.2 % Mean Corpuscular Volume 95.5 FL Mean Corpuscular Hemoglobin 32.0 PG Mean Corpuscular Hemoglobin 33.5 % Concent Red Cell Distribution Width 14.0 % Platelet Count 126 TH/MM3 Mean Platelet Volume 8.3 FL Neutrophils (%) (Auto) 60.8 % Lymphocytes (%) (Auto) 29.3 % Monocytes (%) (Auto) 6.2 % Eosinophils (%) (Auto) 3.3 % Basophils (%) (Auto) 0.4 % Neutrophils # (Auto) 4.1 TH/MM3 Lymphocytes # (Auto) 2.0 TH/MM3 Monocytes # (Auto) 0.4 TH/MM3 Eosinophils # (Auto) 0.2 TH/MM3 Basophils # (Auto) 0.0 TH/MM3 CBC Comment DIFF FINAL Differential Comment Activated Partial 39.9 SEC Thromboplast Time Sodium Level 151 MEQ/L Potassium Level 3.8 MEQ/L Chloride Level 117 MEQ/L Carbon Dioxide Level 30.5 MEQ/L Anion Gap 4 MEQ/L Blood Urea Nitrogen 16 MG/DL Creatinine 1.03 MG/DL Estimat Glomerular Filtration 76 ML/MIN Rate Random Glucose 297 MG/DL Calcium Level 7.8 MG/DL Phosphorus Level 2.5 MG/DL Magnesium Level 2.5 MG/DL Total Bilirubin 0.7 MG/DL Aspartate Amino Transf 28 U/L (AST/SGOT) Alanine Aminotransferase 26 U/L (ALT/SGPT) Alkaline Phosphatase 92 U/L Total Protein 4.9 GM/DL Albumin 2.0 GM/DL Imaging Last Impressions Chest X-Ray 06/12/16 0600 Signed Impressions: Service Date/Time: Sunday, June 12, 2016 03:52 - CONCLUSION: No acute disease. Kevin Augustin MD Head CT 06/11/16 0000 Signed Impressions: Service Date/Time: Sunday, June 12, 2016 00:05 - CONCLUSION: 1. No acute abnormality seen. 2. 0.8 cm hypodensity in the right frontal lobe likely representing an area of focal encephalomalacia. No mass effect is seen. Kevin Augustin MD Objective Remarks GENERAL: 50-year-old male intubated sedated critically ill SKIN: Warm and dry. HEAD: Atraumatic. Normocephalic. EYES: Pupils equal and round. No scleral icterus. No injection or drainage. ENT: No nasal bleeding or discharge. Mucous membranes dry. Orotracheally intubated NECK: Trachea midline. No JVD. CARDIOVASCULAR: Tachycardic. Regular rhythm. RESPIRATORY: Air entry equal bilaterally clear to auscultation GASTROINTESTINAL: Abdomen soft, non-tender, nondistended. Hepatic and splenic margins not palpable. MUSCULOSKELETAL: No obvious deformities. No clubbing. No cyanosis. No edema. NEUROLOGICAL: Sedated and intubated A/P Assessment and Plan NEURO: Acute metabolic encephalopathy Cocaine intoxication/abuse -Propofol for sedation and ventilator synchrony -Encephalopathy seems to be metabolic due to DKA, severe sepsis -Daily sedation vacation, monitor neuro status -Supplement multivitamin, thiamine RESP: Acute respiratory failure Probable pneumonia -ACV 18/600/8/35% -Continue with vent support keep sat >92% -Ventilator bundle, DuoNeb every 6 hours and when necessary -SBT daily as jeffy CV: Elevated troponin History of hypertension -Monitor HR and BP keep MAP>65mmHg. Lactic acid 1.6 -Echo showed EF 50-55%, no RWMA.. Continue ASA 81mg daily -Continue with heparin drip per [place] protocol. Cards -Dr. Diaz GI: -On TF-Glucerna 1.5 with goal rate 45ml/hr -IV Protonix for GI prophylaxis : Acute kidney failure - resolved Hypernatremia -Monitor renal function, I/O's, electrolytes replacement per protocol. -Diurese with Bumex 1mg x1. D/c IVF -On Free H20 250ml Q6, monitor sodium level. ID: Severe sepsis Probable pneumonia Sputum cx 06/11 GNR, Beta strep, staph Aureus -Continue with abx per ID( Rocephin, Flagyl) -Monitor for signs of infections (fever, WBC) follow up on cxs HEME: Megaloblastic anemia -Monitor CBC, CMP, coags -Supplement thiamine ENDO: Severe DKA- AG closed Type 2 diabetes with noncompliance -Increase SSI to medium scale with accuchecks Q4 PROPH: -Bilateral lower extremity SCDs. Heparin drip, Protonix 40 mg IV daily LINES: -Utilize peripheral IVs, CCT 30 mins Daniel Devries MD Jun 14, 2016 10:04
[2016-06-14 10:51] LABS: APTT (PATIENT) 39.4 SEC (24.3-30.1)
[2016-06-14] MEDS ORDERED: GLUCAGON 1 MG/ML VIAL OTHER PRN (12:00)
[2016-06-14] MEDS ORDERED: DEXTROSE 50% IN WATER 50 ML VIAL(D50) IV PUSH PRN (12:00)
[2016-06-14 15:18] LABS: CHLAMYDIA PCR NOT DETECTED (NOT DETECT); NEISSERIA PCR NOT DETECTED (NOT DETECT)
[2016-06-14 15:54] LABS: APTT (PATIENT) 37.6 SEC (24.3-30.1)
[2016-06-14] MEDS: HEPARIN-D5W INJ 250 ML IV SCH (16:45)
[2016-06-14] MEDS: cefTRIAXone INJ 2,000 MG in SODIUM CHLORIDE 0.9% INJ 100 ML IV SCH (16:53)
--- NOTE | 2016-06-14 18:58 | HHI.IDPN ---
Subjective Subjective Remarks is a 50 y/o [place] male with PMHx signficant for DM ? type 2, non compliance with medications, HTN, Cocaine abuse who was brought to the emergency department by EMS. Reportedly, his blood sugar at home was read as high and patient was altered. He admitted to drinking orange vodka last night. Initial ABG was 6.88/16/132 with a base excess of -27.4. Patient was intubated for agitation, airway protection and severe acidemia. His blood sugar was 1100, potassium was 7.3, beta hydroxybutyrate was 10.7 consistent with severe DKA. Patient was given 10 units IV insulin and a total of 5 L normal saline bolus in the ED. Patient was seen by CCM MD and DM protocol initiated, Sepsis workup initiated. Patient was profoundly hypothermia at 92 F, hypotensive. Patient was started on Zosyn IV and 1 dose of Vanco given. On 06/13 He spiked fever with T: 101.2 F. ID consulted for evaluation and Mment of New fevers and Pneumonia. At the time of my evaluation patient is intubated, was being tried on sedation vacation and was agitated so being sedated back again. He was moving all 4 extremities. He had adequate UO, no rash and no diarrhea. Overnight events reviewed No fever No rash No diarrhea Antibiotics Ceftriaxone IV Flagyl Lines Line sites with no e/o infection. Past Medical History reviewed Allergies: Coded Allergies: Metformin (Verified Adverse Reaction, Mild, Diarrhea, 06/11/16) *MDRO Multi-Drug Resistant Organism (Verified Adverse Reaction, Unknown, MRSA, 06/12/16) MRSA PCR (nares) POSITIVE - 06/11/16 Objective . Vital Signs Date Time Temp Pulse Resp B/P Pulse Ox O2 Delivery O2 Flow Rate FiO2 06/14/16 18:00 96 06/14/16 16:25 95 35 06/14/16 16:00 102.3 96 15 131/76 95 06/14/16 16:00 96 06/14/16 16:00 35 06/14/16 14:00 90 06/14/16 12:47 93 35 06/14/16 12:00 100.8 93 26 124/75 94 06/14/16 12:00 35 06/14/16 12:00 93 06/14/16 10:01 35 06/14/16 10:00 99 06/14/16 09:43 96 35 06/14/16 08:00 99.2 76 18 101/60 98 06/14/16 08:00 35 06/14/16 08:00 75 06/14/16 06:00 75 06/14/16 04:42 98 35 06/14/16 04:00 98.8 76 18 101/62 98 06/14/16 04:00 76 06/14/16 04:00 35 06/14/16 02:00 79 06/14/16 01:11 98 35 06/14/16 00:00 79 06/14/16 00:00 99.0 79 18 117/70 98 06/14/16 00:00 35 06/13/16 22:00 78 06/13/16 20:05 98 35 06/13/16 20:00 35 06/13/16 20:00 99.3 82 18 127/71 98 06/13/16 20:00 82 06/13/16 06/13/16 06/14/16 15:00 23:00 07:00 Intake Total 1185 ml 1802 ml 1293 ml Output Total 1600 ml 275 ml 225 ml Balance -415 ml 1527 ml 1068 ml Intake IV Total 683 ml 1338 ml 965 ml Tube Feeding 302 ml 464 ml 328 ml Other 200 ml Output Urine Total 1600 ml 275 ml 225 ml # Bowel Movements 0 . Laboratory Tests Test 06/13/16 06/14/16 10:10 03:26 White Blood Count 7.4 TH/MM3 6.8 TH/MM3 Red Blood Count 3.26 MIL/MM3 3.16 MIL/MM3 Hemoglobin 10.5 GM/DL 10.1 GM/DL Hematocrit 30.6 % 30.2 % Mean Corpuscular Volume 93.8 FL 95.5 FL Mean Corpuscular Hemoglobin 32.1 PG 32.0 PG Mean Corpuscular Hemoglobin 34.3 % 33.5 % Concent Red Cell Distribution Width 13.9 % 14.0 % Platelet Count 148 TH/MM3 126 TH/MM3 Mean Platelet Volume 7.9 FL 8.3 FL Neutrophils (%) (Auto) 63.3 % 60.8 % Lymphocytes (%) (Auto) 27.6 % 29.3 % Monocytes (%) (Auto) 7.5 % 6.2 % Eosinophils (%) (Auto) 1.0 % 3.3 % Basophils (%) (Auto) 0.6 % 0.4 % Neutrophils # (Auto) 4.7 TH/MM3 4.1 TH/MM3 Lymphocytes # (Auto) 2.1 TH/MM3 2.0 TH/MM3 Monocytes # (Auto) 0.6 TH/MM3 0.4 TH/MM3 Eosinophils # (Auto) 0.1 TH/MM3 0.2 TH/MM3 Basophils # (Auto) 0.0 TH/MM3 0.0 TH/MM3 CBC Comment DIFF FINAL DIFF FINAL Differential Comment Laboratory Tests Test 06/13/16 06/13/16 06/13/16 06/14/16 00:20 06:05 22:42 03:29 Sodium Level 153 MEQ/L 156 MEQ/L 151 MEQ/L Potassium Level 3.9 MEQ/L 3.5 MEQ/L 3.8 MEQ/L Chloride Level 118 MEQ/L 121 MEQ/L 117 MEQ/L Carbon Dioxide Level 27.9 MEQ/L 29.3 MEQ/L 30.5 MEQ/L Anion Gap 7 MEQ/L 6 MEQ/L 4 MEQ/L Blood Urea Nitrogen 23 MG/DL 18 MG/DL 16 MG/DL Creatinine 1.61 MG/DL 1.55 MG/DL 1.03 MG/DL Estimat Glomerular Filtration 45 ML/MIN 48 ML/MIN 76 ML/MIN Rate Random Glucose 358 MG/DL 196 MG/DL 297 MG/DL Calcium Level 7.5 MG/DL 7.9 MG/DL 7.8 MG/DL Phosphorus Level 1.8 MG/DL 1.6 MG/DL 2.7 MG/DL 2.5 MG/DL Magnesium Level 2.6 MG/DL 2.7 MG/DL 2.5 MG/DL Total Bilirubin 0.7 MG/DL Aspartate Amino Transf 28 U/L (AST/SGOT) Alanine Aminotransferase 26 U/L (ALT/SGPT) Alkaline Phosphatase 92 U/L Total Protein 4.9 GM/DL Albumin 2.0 GM/DL Microbiology Date/Time Procedure Status Source Growth 06/13/16 09:15 Aerobic Blood Culture - Preliminary Resulted Blood Peripheral NO GROWTH IN 1 DAY 06/13/16 09:15 Anaerobic Blood Culture - Preliminary Resulted Blood Peripheral NO GROWTH IN 1 DAY 06/13/16 09:20 Aerobic Blood Culture - Preliminary Resulted Blood Peripheral NO GROWTH IN 1 DAY 06/13/16 09:20 Anaerobic Blood Culture - Preliminary Resulted Blood Peripheral NO GROWTH IN 1 DAY 06/13/16 09:30 Gram Stain - Final Resulted Sputum Endotracheal 06/13/16 09:30 Sputum Culture - Preliminary Resulted Gram Negative Ananda Imaging Last Impressions Chest X-Ray 06/12/16 0600 Signed Impressions: Service Date/Time: Sunday, June 12, 2016 03:52 - CONCLUSION: No acute disease. Kevin Augustin MD Head CT 06/11/16 0000 Signed Impressions: Service Date/Time: Sunday, June 12, 2016 00:05 - CONCLUSION: 1. No acute abnormality seen. 2. 0.8 cm hypodensity in the right frontal lobe likely representing an area of focal encephalomalacia. No mass effect is seen. Kevin Augustin MD Physical Exam GENERAL: This is a well-nourished, well-developed patient, in no apparent distress. SKIN: No rashes, ecchymoses or lesions. Cool and dry. HEAD: Atraumatic. Normocephalic. No temporal or scalp tenderness. EYES: Pupils equal round and reactive. Extraocular motions intact. No scleral icterus. No injection or drainage. ENT: Intubated. NECK: Trachea midline. Supple, nontender, no meningeal signs. CARDIOVASCULAR: Regular rate and rhythm without murmurs, gallops, or rubs. RESPIRATORY: Clear to auscultation. Breath sounds equal bilaterally. GASTROINTESTINAL: Abdomen soft, non-tender, nondistended. MUSCULOSKELETAL: Extremities without clubbing, cyanosis, or edema. NEUROLOGICAL: Opens eyes. Agitated. Grossly non focal. Moves all 4 extremities. Psych: agitated on vent. IV line sites with no e/o infection. Assessment & Plan Remarks Possible Severe Sepsis present on admission. Aspiration Pneumonia, MSSA pneumonia Diabetic Ketoacidosis on admission, Noncompliance by history. Acute respiratory failure Acute renal failure: sepsis, prerenal Acute metabolic encephalopathy: sepsis, metabolic, drugs. Cocaine abuse. Fever after initial resolution ? Drug fever (Vanco IV and Zosyn IV) Recs: Continue Ceftriaxone IV. Continue Flagyl oral. Follow cultures. Follow clinically. d/w RN d.w . Anne Sabillon MD Jun 14, 2016 18:58
[2016-06-14] MEDS: ACETAMINOPHEN 650 MG/20.3 ML UDC PO PRN ×2 (20:22→22:35)
[2016-06-14 21:26] LABS: APTT (PATIENT) 40.1 SEC (24.3-30.1)
[2016-06-15] VITALS (18 sets, daily range): BP systolic 99–133; BP diastolic 57–72; PULSE 67–87; RESP 15–24; TEMP 99.3–101.3; O2SAT 92–97
[2016-06-15] MEDS: FREE WATER G-TUBE SCH ×4 (03:00→21:00)
[2016-06-15] MEDS: fentaNYL DRIP 250 ML IV SCH ×2 (03:58→05:53)
[2016-06-15] MEDS: CHLORHEXIDINE GLUCONATE 2 % 1 PACK (2 CLOTHS) TOP SCH (04:00)
[2016-06-15] MEDS: HEPARIN-D5W INJ 250 ML IV SCH (04:10)
[2016-06-15] MEDS: INSULIN NovoLIN REGULAR SUPPLEMENTAL SCALE SQ SCH ×5 (04:12→20:00)
[2016-06-15 04:54] LABS: APTT (PATIENT) 45.5 SEC (24.3-30.1)
[2016-06-15 04:55] LABS: AUTOMATED NEUTROPHIL # 3.4 TH/MM3 (1.8-7.7); BASOPHIL % 0.2 % (0.0-2.0); EOSINOPHIL # 0.3 TH/MM3 (0-0.4); EOSINOPHIL % 4.9 % (0.0-4.0); HEMATOCRIT 28.9 % (39.0-51.0); HEMO FLAGS DIFF FINAL; LYMPHOCYTE # 1.9 TH/MM3 (1.0-4.8); MEAN CELL VOLUME 94.3 FL (80.0-100.0); MEAN CORPUSCULAR HEMOGLOBIN 31.9 PG (27.0-34.0); MEAN CORPUSCULAR HGB CONC 33.8 % (32.0-36.0); MONO % 9.2 % (0.0-8.0); NEUT % 54.7 % (16.0-70.0); PLATELET COUNT 139 TH/MM3 (150-450); RED BLOOD COUNT 3.06 MIL/MM3 (4.50-5.90); RED CELL DISTRIBUTION WIDTH 13.3 % (11.6-17.2); WHITE BLOOD COUNT 6.1 TH/MM3 (4.0-11.0)
[2016-06-15 05:20] LABS: BICARBONATE 32.5 MEQ/L (21.0-32.0); MAGNESIUM 2.3 MG/DL (1.5-2.5); POTASSIUM 3.8 MEQ/L (3.5-5.1)
--- NOTE | 2016-06-15 05:42 | RADRPT ---
EXAM DATE/TIME: 06/15/2016 03:56 [facility] COMPARISON: CHEST SINGLE AP, June 12, 2016, 3:52. INDICATIONS : Shortness of breath, possible pulmonary disease. MEDICAL HISTORY : Diabetes mellitus type II. SURGICAL HISTORY : None. ENCOUNTER: Subsequent ACUITY: 4 - 6 days PAIN SCORE: Non-responsive. LOCATION: Bilateral chest FINDINGS: ET tube and NG tube are well placed. The heart size is upper limits of normal for size. There is incr eased density at the left base with silhouette of the left hemidiaphragm. Right lung is clear. CONCLUSION: Left base consolidation or atelectasis. Kevin Augustin MD on June 15, 2016 at 5:39 Board Certified Radiologist. This report was verified electronically.
[2016-06-15] MEDS: PROPOFOL 1000 MG/100 ML INJ 100 ML IV SCH (05:52)
[2016-06-15] MEDS: metroNIDAZOLE 500 MG TAB PO SCH ×3 (05:53→22:15)
[2016-06-15] MEDS: ACETAMINOPHEN 650 MG/20.3 ML UDC PO PRN (05:56)
[2016-06-15] MEDS: THIAMINE INJ 100 MG in SODIUM CHLORIDE 0.9% INJ 100 ML IV SCH (08:23)
[2016-06-15] MEDS: CHLORHEXIDINE 0.12% (ORAL KIT) 15 ML CUP MT SCH ×2 (08:24→20:00)
[2016-06-15] MEDS: ASPIRIN EC 81 MG TABEC PO SCH (08:24)
[2016-06-15] MEDS: CEFEPIME INJ 2,000 MG in SODIUM CHLORIDE 0.9% INJ 100 ML IV SCH ×2 (09:01→17:56)
--- NOTE | 2016-06-15 11:27 | HHI.CCPN ---
Subjective Remarks/Hospital Course Patient is a 50-year-old [place] male with history of type 2 diabetes history of noncompliance to medications, hypertension, cocaine abuse who was brought to the emergency department by EMS. Apparently Blood sugar at home was read as high and patient was altered. He admitted to drinking orange vodka last night. Initial ABG was 6.88/16/132 with a base excess of -27.4. Patient was intubated for agitation, airway protection and severe acidemia. His blood sugar was 1100, potassium was 7.3, beta hydroxybutyrate was 10.7 consistent with severe DKA. Patient was given 10 units IV insulin and a total of 5 L normal saline bolus in the ED. DKA protocol was ordered, not started yet. For hyperkalemia along with hypocalcemia he received 3 g of calcium gluconate 150 mEq of bicarbonate 15 g Kayexalate. Zosyn given in the ED for severe hypothermia and leukocytosis. I evaluated the patient in the ICU. Patient is profoundly hypothermic temperature 92, borderline hypotensive with systolic blood pressure in the 90s. Blood urine and sputum cultures ordered. Zosyn will be continued along with 1 dose of vancomycin. Patient will be emergently started on DKA protocol. Lactic acid is pending at this time as well as troponin. His DKA precipitated by noncompliance and sepsis however acute coronary event need to be be ruled out 06/12 Patient is sedated with Fentanyl, Diprivan and intubated. On Insulin drip 7units/hr ( AG closed) started on heparin drip overnight as troponin increased 1.31 06/13 Patient is sedated with Diprivan and intubated. Off Fentanyl drip. Spiked fever with T: 101.2 Placed back on insulin drip overnight 7u/hr. 06/14 Patient is sedated and intubated. Off insulin drip, Afebrile. 06/15: Intermittently follows commands. Remains intubated off sedation. Intermittently spiking fever up to 101, tolerating C Pap 5 over 5 Objective Vital Signs Date Time Temp Pulse Resp B/P Pulse Ox O2 Delivery O2 Flow Rate FiO2 06/15/16 09:51 92 Nasal Cannula 6.00 06/15/16 08:27 92 35 06/15/16 08:00 86 06/15/16 08:00 99.7 15 122/70 Intake and Output 06/14/16 06/14/16 06/15/16 08:00 16:00 00:00 Intake Total 1293 ml 1470 ml 1297 ml Output Total 225 ml 2500 ml 1300 ml Balance 1068 ml -1030 ml -3 ml Result Diagram: 06/15/16 0429 06/15/16 0429 Imaging Last Impressions Chest X-Ray 06/12/16 0600 Signed Impressions: Service Date/Time: Sunday, June 12, 2016 03:52 - CONCLUSION: No acute disease. Kevin Augustin MD Head CT 06/11/16 0000 Signed Impressions: Service Date/Time: Sunday, June 12, 2016 00:05 - CONCLUSION: 1. No acute abnormality seen. 2. 0.8 cm hypodensity in the right frontal lobe likely representing an area of focal encephalomalacia. No mass effect is seen. Kevin Augustin MD Objective Remarks GENERAL: 50-year-old male intubated sedated with Fentanyl SKIN: Warm and dry. HEAD: Atraumatic. Normocephalic. EYES: Pupils equal and round. No scleral icterus. No injection or drainage. ENT: No nasal bleeding or discharge. Mucous membranes dry. Orotracheally intubated NECK: Trachea midline. No JVD. CARDIOVASCULAR: Regular rhythm. o murmurs RESPIRATORY: Air entry equal bilaterally clear to auscultation GASTROINTESTINAL: Abdomen soft, non-tender, nondistended. Hepatic and splenic margins not palpable. MUSCULOSKELETAL: No obvious deformities. No clubbing. No cyanosis. No edema. NEUROLOGICAL: Sedated and intubated. Wakes up intermittently follows commands Urinary Catheter: Yes Assessment to: Continue A/P Assessment and Plan NEURO: Acute metabolic encephalopathy Cocaine intoxication/abuse -Propofol for sedation and ventilator synchrony -Encephalopathy seems to be metabolic due to DKA, severe sepsis -Daily sedation vacation, monitor neuro status -Supplement multivitamin, thiamine RESP: Acute respiratory failure Probable pneumonia -ACV 18/600/8/35%. Tolerating SBT, possible extubation today -Continue with vent support keep sat >90% -Ventilator bundle, DuoNeb every 6 hours and when necessary CV: Elevated troponin History of hypertension -Monitor HR and BP keep MAP>65mmHg. -Echo showed EF 50-55%, no RWMA.. Continue ASA 81mg daily -DC heparin drip. Cards -Dr. Diaz GI: -On TF-Glucerna 1.5 with goal rate 45ml/hr-Hold for extubation -IV Protonix for GI prophylaxis : Acute kidney failure - resolved Hypernatremia -Monitor renal function, I/O's, electrolytes replacement per protocol. -Diuresed with Bumex 1mg x1 06/14 -On Free H20 250ml Q6, monitor sodium level. ID: Severe sepsis Pneumonia Sputum cx 06/11 Klebsiella, Beta strep, staph Aureus -Continue with abx per ID( Cefepime, Flagyl) -Monitor for signs of infections (fever, WBC) follow up on cxs HEME: Megaloblastic anemia -Monitor CBC, CMP, coags -Supplement thiamine ENDO: Severe DKA-resolved Type 2 diabetes with noncompliance -SSI to medium scale with accuchecks Q4 PROPH: -Bilateral lower extremity SCDs. Heparin drip-change to Lovenox prophylactic dose, Protonix 40 mg IV daily LINES: -Utilize peripheral IVs, Level 3 Feliz Brown MD Jun 15, 2016 11:27
[2016-06-15 11:46] LABS: APTT (PATIENT) 39.6 SEC (24.3-30.1)
[2016-06-15] MEDS: INSULIN DETEMIR 100 UNITS/ML VIAL SQ SCH ×2 (12:14→21:00)
[2016-06-15] MEDS: ENOXAPARIN SODIUM 40 MG/0.4 ML SYRINGE SQ SCH (12:14)
--- NOTE | 2016-06-15 15:45 | RADRPT ---
EXAM DATE/TIME: 06/15/2016 14:48 [facility] COMPARISON: CHEST SINGLE AP, June 15, 2016, 3:56. INDICATIONS : Vomiting, possible ileus. MEDICAL HISTORY : Diabetes mellitus type II. SURGICAL HISTORY : None. ENCOUNTER: Initial ACUITY: 4 - 6 days PAIN SCORE: Non-responsive. LOCATION: Bilateral abdomen FINDINGS: Portable supine frontal view of the abdomen demonstrates air within bowel in a nonobstructive pattern . Liver shadow is enlarged. No abnormal calcifications are seen. Visualized lung bases demonstrate st able airspace opacity in the left lower lobe. Bones demonstrate no acute abnormality. CONCLUSION: 1. Nonobstructive bowel gas pattern. There are no findings to indicate ileus. 2. Hepatomegaly. 3. Stable airspace opacity in the left lower lobe representing either atelectasis or consolidation. Kevin Melissa MD on June 15, 2016 at 15:42 Board Certified Radiologist. This report was verified electronically.
--- NOTE | 2016-06-15 17:09 | HHI.IDPN ---
Subjective Subjective Remarks is a 50 y/o [place] male with PMHx signficant for DM ? type 2, non compliance with medications, HTN, Cocaine abuse who was brought to the emergency department by EMS. Reportedly, his blood sugar at home was read as high and patient was altered. He admitted to drinking orange vodka last night. Initial ABG was 6.88/16/132 with a base excess of -27.4. Patient was intubated for agitation, airway protection and severe acidemia. His blood sugar was 1100, potassium was 7.3, beta hydroxybutyrate was 10.7 consistent with severe DKA. Patient was given 10 units IV insulin and a total of 5 L normal saline bolus in the ED. Patient was seen by CCM MD and DM protocol initiated, Sepsis workup initiated. Patient was profoundly hypothermia at 92 F, hypotensive. Patient was started on Zosyn IV and 1 dose of Vanco given. On 06/13 He spiked fever with T: 101.2 F. ID consulted for evaluation and Mment of New fevers and Pneumonia. At the time of my evaluation patient is intubated, was being tried on sedation vacation and was agitated so being sedated back again. He was moving all 4 extremities. He had adequate UO, no rash and no diarrhea. Overnight events reviewed Fevers 101 F. No rash No diarrhea Extubated and doing well Follows commands. No BM. Oriented to place and person. Reports he uses IV drugs drug name 'R' describes stimulant effect. Works in construction. Antibiotics Ceftriaxone IV Flagyl Lines Line sites with no e/o infection. Past Medical History reviewed Allergies: Coded Allergies: Metformin (Verified Adverse Reaction, Mild, Diarrhea, 06/11/16) *MDRO Multi-Drug Resistant Organism (Verified Adverse Reaction, Unknown, MRSA, 06/12/16) MRSA PCR (nares) POSITIVE - 06/11/16 Objective . Vital Signs Date Time Temp Pulse Resp B/P Pulse Ox O2 Delivery O2 Flow Rate FiO2 06/15/16 16:00 67 06/15/16 14:00 74 06/15/16 12:00 99.4 69 24 124/64 92 06/15/16 12:00 76 06/15/16 11:36 92 Nasal Cannula 6.00 06/15/16 10:00 87 06/15/16 09:51 92 Nasal Cannula 6.00 06/15/16 08:27 Nasal Cannula 92 35 06/15/16 08:27 93 35 06/15/16 08:00 35 06/15/16 08:00 86 06/15/16 08:00 99.7 86 15 122/70 92 06/15/16 06:00 74 06/15/16 04:24 96 35 06/15/16 04:00 35 06/15/16 04:00 100.4 78 18 110/61 96 06/15/16 04:00 75 06/15/16 02:00 80 06/15/16 01:19 95 35 06/15/16 00:00 101.3 85 18 99/57 96 06/15/16 00:00 35 06/15/16 00:00 85 06/14/16 22:00 83 06/14/16 20:10 95 35 06/14/16 20:00 35 06/14/16 20:00 85 06/14/16 20:00 101.5 85 18 106/42 95 06/14/16 18:00 96 06/14/16 06/14/16 06/15/16 15:00 23:00 07:00 Intake Total 1470 ml 1297 ml 1537 ml Output Total 2500 ml 1300 ml 350 ml Balance -1030 ml -3 ml 1187 ml Intake Oral 0 ml IV Total 780 ml 627 ml 524 ml Tube Feeding 450 ml 420 ml 763 ml Other 240 ml 250 ml 250 ml Output Urine Total 2500 ml 1300 ml 350 ml # Bowel Movements 0 0 . Laboratory Tests Test 06/14/16 06/15/16 03:26 04:29 White Blood Count 6.8 TH/MM3 6.1 TH/MM3 Red Blood Count 3.16 MIL/MM3 3.06 MIL/MM3 Hemoglobin 10.1 GM/DL 9.8 GM/DL Hematocrit 30.2 % 28.9 % Mean Corpuscular Volume 95.5 FL 94.3 FL Mean Corpuscular Hemoglobin 32.0 PG 31.9 PG Mean Corpuscular Hemoglobin 33.5 % 33.8 % Concent Red Cell Distribution Width 14.0 % 13.3 % Platelet Count 126 TH/MM3 139 TH/MM3 Mean Platelet Volume 8.3 FL 8.4 FL Neutrophils (%) (Auto) 60.8 % 54.7 % Lymphocytes (%) (Auto) 29.3 % 31.0 % Monocytes (%) (Auto) 6.2 % 9.2 % Eosinophils (%) (Auto) 3.3 % 4.9 % Basophils (%) (Auto) 0.4 % 0.2 % Neutrophils # (Auto) 4.1 TH/MM3 3.4 TH/MM3 Lymphocytes # (Auto) 2.0 TH/MM3 1.9 TH/MM3 Monocytes # (Auto) 0.4 TH/MM3 0.6 TH/MM3 Eosinophils # (Auto) 0.2 TH/MM3 0.3 TH/MM3 Basophils # (Auto) 0.0 TH/MM3 0.0 TH/MM3 CBC Comment DIFF FINAL DIFF FINAL Differential Comment Laboratory Tests Test 06/13/16 06/14/16 06/15/16 22:42 03:29 04:29 Phosphorus Level 2.7 MG/DL 2.5 MG/DL 3.0 MG/DL Sodium Level 151 MEQ/L 147 MEQ/L Potassium Level 3.8 MEQ/L 3.8 MEQ/L Chloride Level 117 MEQ/L 109 MEQ/L Carbon Dioxide Level 30.5 MEQ/L 32.5 MEQ/L Anion Gap 4 MEQ/L 6 MEQ/L Blood Urea Nitrogen 16 MG/DL 18 MG/DL Creatinine 1.03 MG/DL 1.14 MG/DL Estimat Glomerular Filtration 76 ML/MIN 68 ML/MIN Rate Random Glucose 297 MG/DL 298 MG/DL Calcium Level 7.8 MG/DL 8.1 MG/DL Magnesium Level 2.5 MG/DL 2.3 MG/DL Total Bilirubin 0.7 MG/DL Aspartate Amino Transf 28 U/L (AST/SGOT) Alanine Aminotransferase 26 U/L (ALT/SGPT) Alkaline Phosphatase 92 U/L Total Protein 4.9 GM/DL Albumin 2.0 GM/DL Microbiology Date/Time Procedure Status Source Growth 06/13/16 09:15 Aerobic Blood Culture - Preliminary Resulted Blood Peripheral NO GROWTH IN 2 DAYS 06/13/16 09:15 Anaerobic Blood Culture - Preliminary Resulted Blood Peripheral NO GROWTH IN 2 DAYS 06/13/16 09:20 Aerobic Blood Culture - Preliminary Resulted Blood Peripheral NO GROWTH IN 2 DAYS 06/13/16 09:20 Anaerobic Blood Culture - Preliminary Resulted Blood Peripheral NO GROWTH IN 2 DAYS 06/13/16 09:30 Gram Stain - Final Resulted Sputum Endotracheal 06/13/16 09:30 Sputum Culture - Preliminary Resulted Klebsiella Oxytoca Staphylococcus Aureus Imaging Last Impressions Chest X-Ray 06/12/16 0600 Signed Impressions: Service Date/Time: Sunday, June 12, 2016 03:52 - CONCLUSION: No acute disease. Kevin Augustin MD Head CT 06/11/16 0000 Signed Impressions: Service Date/Time: Sunday, June 12, 2016 00:05 - CONCLUSION: 1. No acute abnormality seen. 2. 0.8 cm hypodensity in the right frontal lobe likely representing an area of focal encephalomalacia. No mass effect is seen. Kevin Augustin MD Physical Exam GENERAL: This is a well-nourished, well-developed patient, in no apparent distress. SKIN: No rashes, ecchymoses or lesions. Cool and dry. HEAD: Atraumatic. Normocephalic. No temporal or scalp tenderness. EYES: Pupils equal round and reactive. Extraocular motions intact. No scleral icterus. No injection or drainage. ENT: Intubated. NECK: Trachea midline. Supple, nontender, no meningeal signs. CARDIOVASCULAR: Regular rate and rhythm without murmurs, gallops, or rubs. RESPIRATORY: Clear to auscultation. Breath sounds equal bilaterally. GASTROINTESTINAL: Abdomen soft, non-tender, nondistended. MUSCULOSKELETAL: Extremities without clubbing, cyanosis, or edema. NEUROLOGICAL: Follows commands, Oriented, Grossly non focal. Moves all 4 extremities. Psych:calm and cooperative. IV line sites with no e/o infection. Assessment & Plan Remarks Possible Severe Sepsis present on admission. Aspiration Pneumonia, MSSA pneumonia Diabetic Ketoacidosis on admission, Noncompliance by history. Acute respiratory failure Acute renal failure: sepsis, prerenal Acute metabolic encephalopathy: sepsis, metabolic, drugs. Cocaine abuse. Fever after initial resolution ? Drug fever (Vanco IV and Zosyn IV) Recs: DC Ceftriaxone IV. Start Cefepime IV Continue Flagyl oral. Follow cultures. Follow clinically. d/w RN d/w CCM Anne Kimball MD Jun 15, 2016 17:09
[2016-06-16] VITALS (11 sets, daily range): BP systolic 92–142; BP diastolic 54–78; PULSE 59–106; RESP 16–20; TEMP 98.1–99.4; O2SAT 80–100
[2016-06-16] MEDS: CEFEPIME INJ 2,000 MG in SODIUM CHLORIDE 0.9% INJ 100 ML IV SCH ×3 (02:41→17:21)
[2016-06-16] MEDS: FREE WATER G-TUBE SCH ×4 (02:41→19:57)
[2016-06-16] MEDS: CHLORHEXIDINE GLUCONATE 2 % 1 PACK (2 CLOTHS) TOP SCH (04:00)
[2016-06-16] MEDS: INSULIN NovoLIN REGULAR SUPPLEMENTAL SCALE SQ SCH ×6 (04:00→20:00)
[2016-06-16] MEDS: metroNIDAZOLE 500 MG TAB PO SCH ×3 (06:02→19:56)
[2016-06-16] MEDS: CHLORHEXIDINE 0.12% (ORAL KIT) 15 ML CUP MT SCH ×2 (08:00→19:57)
[2016-06-16] MEDS: ASPIRIN EC 81 MG TABEC PO SCH (08:14)
[2016-06-16] MEDS: INSULIN DETEMIR 100 UNITS/ML VIAL SQ SCH ×2 (08:14→20:01)
--- NOTE | 2016-06-16 11:23 | PD.TRANSFR ---
Transfer Summary Admission Date Jun 11, 2016 at 07:17 Admitting Diagnosis Severe DKA, Resp Failure, HyperK, Cocaine/EtOH Diagnoses: (1) DKA (diabetic ketoacidoses) Diagnosis: Principal (2) Acute metabolic encephalopathy Diagnosis: Principal (3) Acute respiratory failure Diagnosis: Principal (4) Acute kidney failure Diagnosis: Principal (5) Hyperkalemia Diagnosis: Principal (6) Hypothermia Diagnosis: Principal (7) Severe sepsis Diagnosis: Principal (8) High anion gap metabolic acidosis Diagnosis: Principal (9) Cocaine intoxication Diagnosis: Principal (10) Aspiration pneumonia Diagnosis: Principal Transfer Summary/Subjective Patient is a 50-year-old Cypriot male with history of type 2 diabetes history of noncompliance to medications, hypertension, cocaine abuse who was brought to the emergency department by EMS. Apparently Blood sugar at home was read as high and patient was altered. Initial ABG was 6.88/16/132 with a base excess of -27.4. Patient was intubated for agitation, airway protection and severe acidemia. His blood sugar was 1100, potassium was 7.3, beta hydroxybutyrate was 10.7 consistent with severe DKA. Patient was given 10 units IV insulin and a total of 5 L normal saline bolus in the ED. DKA protocol was ordered. For hyperkalemia along with hypocalcemia he received 3 g of calcium gluconate 150 mEq of bicarbonate 15 g Kayexalate per the ER physician. Zosyn given in the ED for severe hypothermia and leukocytosis. In the ICU patient was profoundly hypothermic temperature 92, hypotensive with systolic blood pressure in the 90s. Blood urine and sputum cultures ordered. Zosyn was continued along with 1 dose of vancomycin. Patient started on DKA protocol. His DKA precipitated by noncompliance and sepsis however acute coronary event need to be be ruled out 06/12 Patient is sedated with Fentanyl, Diprivan and intubated. On Insulin drip 7units/hr ( AG closed) started on heparin drip overnight as troponin increased 1.31. Cardiology Dr. Diaz recommended and recommended stress test prior to discharge 06/13 Patient is sedated with Diprivan and intubated. Off Fentanyl drip. Spiked fever with T: 101.2 Placed back on insulin drip overnight 7u/hr. 06/14 Patient is sedated and intubated. Off insulin drip, Afebrile. 06/15: Intermittently follows commands. Remains intubated off sedation. Intermittently spiking fever up to 101, tolerating C Pap 5 over 5 06/16: Extubated yesterday tolerating well. Now sitting up in chair. Blood sugar control was improved after starting Levemir Objective Vital Signs Date Time Temp Pulse Resp B/P Pulse Ox O2 Delivery O2 Flow Rate FiO2 06/16/16 08:35 94 Venturi Mask 50 06/16/16 06:00 70 06/16/16 04:00 99.3 20 118/58 06/15/16 21:05 6.00 Intake and Output 06/15/16 06/15/16 06/16/16 08:00 16:00 00:00 Intake Total 1537 ml 561 ml 436 ml Output Total 350 ml 600 ml 800 ml Balance 1187 ml -39 ml -364 ml Result Diagram: 06/15/16 0429 06/15/16 0429 Imaging Last Impressions Chest X-Ray 06/12/16 0600 Signed Impressions: Service Date/Time: Sunday, June 12, 2016 03:52 - CONCLUSION: No acute disease. Kevin Augustin MD Head CT 06/11/16 0000 Signed Impressions: Service Date/Time: Sunday, June 12, 2016 00:05 - CONCLUSION: 1. No acute abnormality seen. 2. 0.8 cm hypodensity in the right frontal lobe likely representing an area of focal encephalomalacia. No mass effect is seen. Kevin Augustin MD Objective Remarks GENERAL: 50-year-old male sitting up in chair SKIN: Warm and dry. HEAD: Atraumatic. Normocephalic. EYES: Pupils equal and round. No scleral icterus. No injection or drainage. ENT: No nasal bleeding or discharge. Mucous membranes dry. NECK: Trachea midline. No JVD. CARDIOVASCULAR: Regular rhythm. No murmurs RESPIRATORY: Air entry equal bilaterally clear to auscultation GASTROINTESTINAL: Abdomen soft, non-tender, nondistended. Hepatic and splenic margins not palpable. MUSCULOSKELETAL: No obvious deformities. No clubbing. No cyanosis. No edema. NEUROLOGICAL: Alert awake oriented to person and place. No focal deficits Urinary Catheter: Yes Assessment to: Continue A/P Assessment and Plan NEURO: Acute metabolic encephalopathy Cocaine intoxication/abuse -Minimize sedation, watch for withdrawal -Encephalopathy seems to be metabolic due to DKA, severe sepsis-resolved now -Counselled about cocaine use -Supplement multivitamin, thiamine RESP: Acute respiratory failure Aspiration pneumonia -Extubated 06/15/16 -DuoNeb every 6 hours and when necessary -Antibiotics as below CV: Elevated troponin History of hypertension -Monitor HR and BP keep MAP>65mmHg. -Echo showed EF 50-55%, no RWMA.. Continue ASA 81mg daily -Cards -Dr. Diaz. Stress test/Lexiscan prior to discharge GI: -1999 ADA diet -IV Protonix for GI prophylaxis : Acute kidney failure - resolved Hypernatremia -Monitor renal function, I/O's, electrolytes replacement per protocol. -Diuresed with Bumex 1mg x1 06/14 ID: Severe sepsis Aspiration Pneumonia Sputum cx 06/11 Klebsiella, Beta strep, staph Aureus -Continue with abx per ID( Cefepime, Flagyl) -Monitor for signs of infections (fever, WBC) follow up on cxs HEME: Megaloblastic anemia -Monitor CBC, CMP, coags -Supplement thiamine ENDO: Severe DKA-resolved Type 2 diabetes with noncompliance -SSI to medium scale with accuchecks Q4 PROPH: -Bilateral lower extremity SCDs. Lovenox 40 mg sq daily, DC Protonix 40 mg IV daily LINES: -Utilize peripheral IVs, Level 3 Consult Hospitalist to assume care in am 06/17/16. Feliz Brown MD Jun 16, 2016 11:23
[2016-06-16] MEDS: ENOXAPARIN SODIUM 40 MG/0.4 ML SYRINGE SQ SCH (12:47)
--- NOTE | 2016-06-16 13:11 | HHI.IDPN ---
Subjective Subjective Remarks is a 50 y/o [place] male with PMHx signficant for DM ? type 2, non compliance with medications, HTN, Cocaine abuse who was brought to the emergency department by EMS. Reportedly, his blood sugar at home was read as high and patient was altered. He admitted to drinking orange vodka last night. Initial ABG was 6.88/16/132 with a base excess of -27.4. Patient was intubated for agitation, airway protection and severe acidemia. His blood sugar was 1100, potassium was 7.3, beta hydroxybutyrate was 10.7 consistent with severe DKA. Patient was given 10 units IV insulin and a total of 5 L normal saline bolus in the ED. Patient was seen by CCM MD and DM protocol initiated, Sepsis workup initiated. Patient was profoundly hypothermia at 92 F, hypotensive. Patient was started on Zosyn IV and 1 dose of Vanco given. On 06/13 He spiked fever with T: 101.2 F. ID consulted for evaluation and Mment of New fevers and Pneumonia. At the time of my evaluation patient is intubated, was being tried on sedation vacation and was agitated so being sedated back again. He was moving all 4 extremities. He had adequate UO, no rash and no diarrhea. Overnight events reviewed Fevers 101 F. No rash No diarrhea Extubated and doing well Follows commands. No BM. Oriented to place and person. Reports he uses IV drugs drug name 'R' describes stimulant effect. Works in construction. Antibiotics Ceftriaxone IV Flagyl Lines Line sites with no e/o infection. Past Medical History reviewed Allergies: Coded Allergies: Metformin (Verified Adverse Reaction, Mild, Diarrhea, 06/11/16) *MDRO Multi-Drug Resistant Organism (Verified Adverse Reaction, Unknown, MRSA, 06/12/16) MRSA PCR (nares) POSITIVE - 06/11/16 Objective . Vital Signs Date Time Temp Pulse Resp B/P Pulse Ox O2 Delivery O2 Flow Rate FiO2 06/16/16 08:35 94 Venturi Mask 50 06/16/16 06:00 70 06/16/16 04:00 99.3 67 20 118/58 94 06/16/16 04:00 91 06/16/16 02:00 70 06/16/16 00:00 76 06/16/16 00:00 99.4 73 18 120/73 94 06/15/16 22:00 76 06/15/16 21:05 97 6.00 06/15/16 20:00 73 06/15/16 20:00 99.3 86 15 125/65 93 06/15/16 18:00 68 06/15/16 16:00 67 06/15/16 16:00 99.4 69 16 133/72 92 06/15/16 14:00 74 06/15/16 06/15/16 06/16/16 14:59 22:59 06:59 Intake Total 561 ml 436 ml 327 ml Output Total 600 ml 800 ml Balance -39 ml -364 ml 327 ml Intake Oral 450 ml 300 ml 200 ml IV Total 111 ml 136 ml 127 ml Output Urine Total 600 ml 800 ml # Voids 1 # Bowel Movements 0 0 . Laboratory Tests Test 06/15/16 04:29 White Blood Count 6.1 TH/MM3 Red Blood Count 3.06 MIL/MM3 Hemoglobin 9.8 GM/DL Hematocrit 28.9 % Mean Corpuscular Volume 94.3 FL Mean Corpuscular Hemoglobin 31.9 PG Mean Corpuscular Hemoglobin 33.8 % Concent Red Cell Distribution Width 13.3 % Platelet Count 139 TH/MM3 Mean Platelet Volume 8.4 FL Neutrophils (%) (Auto) 54.7 % Lymphocytes (%) (Auto) 31.0 % Monocytes (%) (Auto) 9.2 % Eosinophils (%) (Auto) 4.9 % Basophils (%) (Auto) 0.2 % Neutrophils # (Auto) 3.4 TH/MM3 Lymphocytes # (Auto) 1.9 TH/MM3 Monocytes # (Auto) 0.6 TH/MM3 Eosinophils # (Auto) 0.3 TH/MM3 Basophils # (Auto) 0.0 TH/MM3 CBC Comment DIFF FINAL Differential Comment Laboratory Tests Test 06/15/16 04:29 Sodium Level 147 MEQ/L Potassium Level 3.8 MEQ/L Chloride Level 109 MEQ/L Carbon Dioxide Level 32.5 MEQ/L Anion Gap 6 MEQ/L Blood Urea Nitrogen 18 MG/DL Creatinine 1.14 MG/DL Estimat Glomerular Filtration 68 ML/MIN Rate Random Glucose 298 MG/DL Calcium Level 8.1 MG/DL Phosphorus Level 3.0 MG/DL Magnesium Level 2.3 MG/DL Imaging Last Impressions Chest X-Ray 06/12/16 0600 Signed Impressions: Service Date/Time: Sunday, June 12, 2016 03:52 - CONCLUSION: No acute disease. Kevin Augustin MD Head CT 06/11/16 0000 Signed Impressions: Service Date/Time: Sunday, June 12, 2016 00:05 - CONCLUSION: 1. No acute abnormality seen. 2. 0.8 cm hypodensity in the right frontal lobe likely representing an area of focal encephalomalacia. No mass effect is seen. Kevin Augustin MD Physical Exam GENERAL: This is a well-nourished, well-developed patient, in no apparent distress. SKIN: No rashes, ecchymoses or lesions. Cool and dry. HEAD: Atraumatic. Normocephalic. No temporal or scalp tenderness. EYES: Pupils equal round and reactive. Extraocular motions intact. No scleral icterus. No injection or drainage. ENT: Intubated. NECK: Trachea midline. Supple, nontender, no meningeal signs. CARDIOVASCULAR: Regular rate and rhythm without murmurs, gallops, or rubs. RESPIRATORY: Clear to auscultation. Breath sounds equal bilaterally. GASTROINTESTINAL: Abdomen soft, non-tender, nondistended. MUSCULOSKELETAL: Extremities without clubbing, cyanosis, or edema. NEUROLOGICAL: Follows commands, Oriented, Grossly non focal. Moves all 4 extremities. Psych:calm and cooperative. IV line sites with no e/o infection. Assessment & Plan Remarks Possible Severe Sepsis present on admission. Aspiration Pneumonia, MSSA pneumonia Diabetic Ketoacidosis on admission, Noncompliance by history. Acute respiratory failure Acute renal failure: sepsis, prerenal Acute metabolic encephalopathy: sepsis, metabolic, drugs. Cocaine abuse. Fever after initial resolution ? Drug fever (Vanco IV and Zosyn IV) Recs: Continue Cefepime IV Continue Flagyl oral. When ready for DC home ok to transition to oral levaquin and flagyl total duration of 7 days. Will follow next on Sunday if still in hospital. Follow cultures. Follow clinically. d/w Anne Umaña MD Jun 16, 2016 13:11
[2016-06-17] VITALS: BP 141/65; PULSE 66; RESP 20; TEMP 98.6; O2SAT 94
[2016-06-17] MEDS: INSULIN NovoLIN REGULAR SUPPLEMENTAL SCALE SQ SCH ×6 (00:11→20:00)
[2016-06-17] MEDS: CEFEPIME INJ 2,000 MG in SODIUM CHLORIDE 0.9% INJ 100 ML IV SCH ×3 (00:12→16:00)
[2016-06-17] MEDS: FREE WATER G-TUBE SCH ×4 (02:10→21:00)
[2016-06-17 04:00] VITALS: BP 140/64; PULSE 72; RESP 20; TEMP 98.7; O2SAT 94
[2016-06-17] MEDS: CHLORHEXIDINE GLUCONATE 2 % 1 PACK (2 CLOTHS) TOP SCH (04:00)
[2016-06-17] MEDS: metroNIDAZOLE 500 MG TAB PO SCH ×3 (06:27→21:19)
[2016-06-17 07:15] LABS: AUTOMATED NEUTROPHIL # 7.6 TH/MM3 (1.8-7.7); BASOPHIL % 0.3 % (0.0-2.0); EOSINOPHIL # 0.4 TH/MM3 (0-0.4); EOSINOPHIL % 3.3 % (0.0-4.0); HEMATOCRIT 30.1 % (39.0-51.0); HEMO FLAGS DIFF FINAL; LYMPH % 19.2 % (9.0-44.0); LYMPHOCYTE # 2.2 TH/MM3 (1.0-4.8); MEAN CELL VOLUME 93.3 FL (80.0-100.0); MEAN CORPUSCULAR HEMOGLOBIN 32.4 PG (27.0-34.0); MEAN CORPUSCULAR HGB CONC 34.8 % (32.0-36.0); MONO % 11.6 % (0.0-8.0); NEUT % 65.6 % (16.0-70.0); PLATELET COUNT 220 TH/MM3 (150-450); RED BLOOD COUNT 3.23 MIL/MM3 (4.50-5.90); RED CELL DISTRIBUTION WIDTH 13.2 % (11.6-17.2); WHITE BLOOD COUNT 11.5 TH/MM3 (4.0-11.0)
[2016-06-17 07:33] LABS: ALKALINE PHOSPHATASE 114 U/L (45-117); ALT (GPT) 40 U/L (12-78); ANION GAP 10 MEQ/L (5-15); AST (GOT) 72 U/L (15-37); BLOOD UREA NITROGEN 15 MG/DL (7-18); CHLORIDE 112 MEQ/L (98-107); GLOMERULAR FILTRATION RATE 110 ML/MIN (>89); MAGNESIUM 1.9 MG/DL (1.5-2.5); POTASSIUM 3.4 MEQ/L (3.5-5.1); SODIUM (NA) 146 MEQ/L (136-145); TOTAL BILIRUBIN ADULT 0.6 MG/DL (0.2-1.0)
[2016-06-17 08:00] VITALS: BP 147/66; PULSE 67; RESP 20; TEMP 98.3; O2SAT 94
[2016-06-17] MEDS: CHLORHEXIDINE 0.12% (ORAL KIT) 15 ML CUP MT SCH ×2 (08:00→20:00)
[2016-06-17] MEDS: ASPIRIN EC 81 MG TABEC PO SCH (08:48)
[2016-06-17] MEDS: INSULIN DETEMIR 100 UNITS/ML VIAL SQ SCH ×2 (08:49→21:20)
--- NOTE | 2016-06-17 10:05 | HHI.PR ---
Subjective Remarks Follow-up severe sepsis/aspiration pneumonia/DKA/encephalopathy 06/17/16-patient seen and examined; alert and oriented 3, denies any chest pain or shortness of breath however complains about being wobbly on his feet Objective Vitals Vital Signs Date Time Temp Pulse Resp B/P Pulse Ox O2 Delivery O2 Flow Rate FiO2 06/17/16 04:00 98.7 72 20 140/64 94 06/17/16 00:00 98.6 66 20 141/65 94 06/16/16 22:15 98.5 59 20 142/78 94 06/16/16 20:30 100 06/16/16 20:00 106 06/16/16 20:00 99.1 64 18 92/54 100 06/16/16 16:00 75 06/16/16 16:00 98.9 63 16 135/58 99 06/16/16 12:00 98.1 61 16 131/61 100 06/16/16 12:00 66 I/O 06/16/16 06/16/16 06/16/16 06/17/16 06/17/16 06/17/16 07:00 15:00 23:00 07:00 15:00 23:00 Intake Total 327 ml 770 ml 350 ml 360 ml Output Total 400 ml 400 ml 800 ml Balance 327 ml 370 ml -50 ml -440 ml Intake Oral 200 ml 620 ml 350 ml 360 ml IV Total 127 ml 150 ml 0 ml Output Urine Total 400 ml 400 ml 800 ml # Voids 1 # Bowel Movements 0 0 0 Result Diagram: 06/17/1617 06/17/1617 Imaging Last Impressions Chest X-Ray 06/15/16 0000 Signed Impressions: Service Date/Time: May 03:56 - CONCLUSION: Left base consolidation or atelectasis. Kevin Augustin MD Abdomen X-Ray 06/15/16 0000 Signed Impressions: Service Date/Time: May 14:48 - CONCLUSION: 1. Nonobstructive bowel gas pattern. There are no findings to indicate ileus. 2. Hepatomegaly. 3. Stable airspace opacity in the left lower lobe representing either atelectasis or consolidation. Kevin Melissa MD Head CT 06/11/16 0000 Signed Impressions: Service Date/Time: Sunday, June 12, 2016 00:05 - CONCLUSION: 1. No acute abnormality seen. 2. 0.8 cm hypodensity in the right frontal lobe likely representing an area of focal encephalomalacia. No mass effect is seen. Kevin Augustin MD Objective Remarks GENERAL: NAD SKIN: Warm and dry. HEAD: Normocephalic. EYES: No scleral icterus. No injection or drainage. NECK: Supple, trachea midline. No JVD or lymphadenopathy. CARDIOVASCULAR: Regular rate and rhythm without murmurs, gallops, or rubs. RESPIRATORY: Breath sounds equal bilaterally. No accessory muscle use. GASTROINTESTINAL: Abdomen soft, non-tender, nondistended. MUSCULOSKELETAL: No cyanosis, or edema. BACK: Nontender without obvious deformity. No CVA tenderness. A/P Problem List: (1) DKA (diabetic ketoacidoses) ICD Code: E13.10 Status: Acute (2) Acute metabolic encephalopathy ICD Code: G93.41 Status: Acute (3) Acute respiratory failure ICD Code: J96.00 Status: Acute (4) Acute kidney failure ICD Code: N17.9 Status: Acute (5) Hyperkalemia ICD Code: E87.5 Status: Acute (6) Hypothermia ICD Code: T68.XXXA Status: Acute (7) Severe sepsis ICD Code: A41.9 Status: Acute (8) High anion gap metabolic acidosis ICD Code: E87.2 Status: Acute (9) Cocaine intoxication ICD Code: F14.929 Status: Acute (10) Aspiration pneumonia ICD Code: J69.0 Status: Acute Assessment and Plan 50-year-old man with Acute metabolic encephalopathy Cocaine intoxication/abuse -Minimize sedation, watch for withdrawal -Encephalopathy seems to be metabolic due to DKA, severe sepsis-resolved now -Counselled about cocaine use -Supplement multivitamin, thiamine Acute respiratory failure Aspiration pneumonia -Extubated 06/15/16 -DuoNeb every 6 hours and when necessary -Antibiotics as below Elevated troponin History of hypertension -Monitor HR and BP keep MAP>65mmHg. -Echo showed EF 50-55%, no RWMA.. Continue ASA 81mg daily -Cards -Dr. Diaz. Stress test/Lexiscan prior to discharge possible 06/18/16 Acute kidney failure - resolved Hypernatremia -Monitor renal function, I/O's, electrolytes replacement per protocol. -Diuresed with Bumex 1mg x1 06/14 Severe sepsis Aspiration Pneumonia Sputum cx 06/11 Klebsiella, Beta strep, staph Aureus -Continue with abx per ID( Cefepime, Flagyl). Discharge on Levaquin by mouth -Monitor for signs of infections (fever, WBC) follow up on cxs Megaloblastic anemia -Monitor CBC, CMP, coags -Supplement thiamine Severe DKA-resolved Type 2 diabetes with noncompliance -SSI to medium scale with accuchecks Q4 -Levemir 15 units every 12H -Bilateral lower extremity SCDs. Lovenox 40 mg sq daily, DC Protonix 40 mg IV daily Problem Qualifiers (1) DKA (diabetic ketoacidoses): (2) Cocaine intoxication: Qualified Code: F14.921 - Cocaine intoxication, with delirium Luigi Luu MD Jun 17, 2016 10:05
[2016-06-17] MEDS: ENOXAPARIN SODIUM 40 MG/0.4 ML SYRINGE SQ SCH (11:09)
[2016-06-17 12:00] VITALS: BP 141/66; PULSE 81; RESP 20; TEMP 98.1; O2SAT 90
[2016-06-17 16:00] VITALS: BP 121/68; PULSE 73; RESP 20; TEMP 98.1; O2SAT 92
[2016-06-17 20:00] VITALS: BP 124/61; PULSE 76; RESP 19; TEMP 98.4; O2SAT 93
[2016-06-18] VITALS: BP 132/66; PULSE 77; RESP 20; TEMP 98.5; O2SAT 91
[2016-06-18] MEDS: CEFEPIME INJ 2,000 MG in SODIUM CHLORIDE 0.9% INJ 100 ML IV SCH ×3 (01:19→16:54)
[2016-06-18] MEDS: FREE WATER G-TUBE SCH ×4 (03:00→20:38)
[2016-06-18] MEDS: CHLORHEXIDINE GLUCONATE 2 % 1 PACK (2 CLOTHS) TOP SCH (03:48)
[2016-06-18 04:00] VITALS: BP 134/74; PULSE 78; RESP 20; TEMP 98.4; O2SAT 94
[2016-06-18] MEDS: INSULIN NovoLIN REGULAR SUPPLEMENTAL SCALE SQ SCH ×6 (04:00→20:00)
[2016-06-18] MEDS: metroNIDAZOLE 500 MG TAB PO SCH ×3 (06:03→20:37)
[2016-06-18] MEDS: CHLORHEXIDINE 0.12% (ORAL KIT) 15 ML CUP MT SCH ×2 (07:20→20:00)
[2016-06-18] MEDS: INSULIN DETEMIR 100 UNITS/ML VIAL SQ SCH ×2 (07:49→20:36)
[2016-06-18] MEDS: ASPIRIN EC 81 MG TABEC PO SCH (07:49)
[2016-06-18 08:00] VITALS: BP 125/63; PULSE 76; RESP 20; TEMP 99; O2SAT 91
[2016-06-18] MEDS: ENOXAPARIN SODIUM 40 MG/0.4 ML SYRINGE SQ SCH (11:32)
[2016-06-18 12:00] VITALS: BP 154/74; PULSE 70; RESP 20; TEMP 98.5; O2SAT 96
--- NOTE | 2016-06-18 12:06 | HHI.PR ---
Subjective Remarks Follow-up severe sepsis/aspiration pneumonia/DKA/encephalopathy 06/17/16-patient seen and examined; alert and oriented 3, denies any chest pain or shortness of breath however complains about being wobbly on his feet 06/18/16-patient seen and examined, stable and no complaints. Mom by the bedside Objective Vitals Vital Signs Date Time Temp Pulse Resp B/P Pulse Ox O2 Delivery O2 Flow Rate FiO2 06/18/16 08:00 99.0 76 20 125/63 91 06/18/16 04:00 98.4 78 20 134/74 94 06/18/16 00:00 98.5 77 20 132/66 91 06/17/16 20:00 98.4 76 19 124/61 93 06/17/16 16:00 98.1 73 20 121/68 92 I/O 06/17/16 06/17/16 06/17/16 06/18/16 06/18/16 06/18/16 07:00 15:00 23:00 07:00 15:00 23:00 Intake Total 360 ml 480 ml 320 ml 230 ml Output Total 800 ml 725 ml Balance -440 ml -245 ml 320 ml 230 ml Intake Oral 360 ml 480 ml 320 ml 230 ml Output Urine Total 800 ml 725 ml # Voids 1 3 # Bowel Movements 0 1 2 Result Diagram: 06/17/1661606/17/16616 Objective Remarks GENERAL: NAD SKIN: Warm and dry. HEAD: Normocephalic. EYES: No scleral icterus. No injection or drainage. NECK: Supple, trachea midline. No JVD or lymphadenopathy. CARDIOVASCULAR: Regular rate and rhythm without murmurs, gallops, or rubs. RESPIRATORY: Breath sounds equal bilaterally. No accessory muscle use. GASTROINTESTINAL: Abdomen soft, non-tender, nondistended. MUSCULOSKELETAL: No cyanosis, or edema. BACK: Nontender without obvious deformity. No CVA tenderness. A/P Problem List: (1) DKA (diabetic ketoacidoses) ICD Code: E13.10 Status: Acute (2) Acute metabolic encephalopathy ICD Code: G93.41 Status: Acute (3) Acute respiratory failure ICD Code: J96.00 Status: Acute (4) Acute kidney failure ICD Code: N17.9 Status: Acute (5) Hyperkalemia ICD Code: E87.5 Status: Acute (6) Hypothermia ICD Code: T68.XXXA Status: Acute (7) Severe sepsis ICD Code: A41.9 Status: Acute (8) High anion gap metabolic acidosis ICD Code: E87.2 Status: Acute (9) Cocaine intoxication ICD Code: F14.929 Status: Acute (10) Aspiration pneumonia ICD Code: J69.0 Status: Acute Assessment and Plan 50-year-old man with Acute metabolic encephalopathy Cocaine intoxication/abuse -Minimize sedation, watch for withdrawal -Encephalopathy seems to be metabolic due to DKA, severe sepsis-resolved now -Counselled about cocaine use -Supplement multivitamin, thiamine Acute respiratory failure Aspiration pneumonia -Extubated 06/15/16 -DuoNeb every 6 hours and when necessary -Antibiotics as below Elevated troponin History of hypertension -Monitor HR and BP keep MAP>65mmHg. -Echo showed EF 50-55%, no RWMA.. Continue ASA 81mg daily -Cards -Dr. Diaz. Stress test/Lexiscan on 06/19/16 Acute kidney failure - resolved Hypernatremia -Monitor renal function, I/O's, electrolytes replacement per protocol. -Diuresed with Bumex 1mg x1 06/14 Severe sepsis Aspiration Pneumonia Sputum cx 06/11 Klebsiella, Beta strep, staph Aureus -Continue with abx per ID( Cefepime, Flagyl). Discharge on Levaquin by mouth -Monitor for signs of infections (fever, WBC) follow up on cxs Megaloblastic anemia -Monitor CBC, CMP, coags -Supplement thiamine Severe DKA-resolved Type 2 diabetes with noncompliance -SSI to medium scale with accuchecks Q4 -Levemir 15 units every 12H -Bilateral lower extremity SCDs. Lovenox 40 mg sq daily, Problem Qualifiers (1) DKA (diabetic ketoacidoses): (2) Cocaine intoxication: Qualified Code: F14.921 - Cocaine intoxication, with delirium Luigi Luu MD Jun 18, 2016 12:06
[2016-06-18 16:00] VITALS: BP 139/76; PULSE 74; RESP 20; TEMP 97.8; O2SAT 96
[2016-06-18 20:00] VITALS: BP 129/63; PULSE 76; RESP 18; TEMP 98.4; O2SAT 92
[2016-06-19] VITALS: BP 128/60; PULSE 75; RESP 18; TEMP 99.2; O2SAT 93
[2016-06-19] MEDS: CEFEPIME INJ 2,000 MG in SODIUM CHLORIDE 0.9% INJ 100 ML IV SCH ×2 (00:38→08:38)
[2016-06-19] MEDS: FREE WATER G-TUBE SCH ×2 (02:22→07:43)
[2016-06-19] MEDS: CHLORHEXIDINE GLUCONATE 2 % 1 PACK (2 CLOTHS) TOP SCH (03:59)
[2016-06-19 04:00] VITALS: BP 114/58; PULSE 63; RESP 19; TEMP 98.5; O2SAT 92
[2016-06-19] MEDS: INSULIN NovoLIN REGULAR SUPPLEMENTAL SCALE SQ SCH ×3 (04:00→08:00)
[2016-06-19] MEDS: metroNIDAZOLE 500 MG TAB PO SCH (05:41)
[2016-06-19] MEDS: CHLORHEXIDINE 0.12% (ORAL KIT) 15 ML CUP MT SCH (07:43)
[2016-06-19 08:00] VITALS: BP 130/64; PULSE 68; RESP 20; TEMP 98.4; O2SAT 93
[2016-06-19 08:06] VITALS: BP 130/64; PULSE 68; RESP 20; TEMP 98.4; O2SAT 93
[2016-06-19] MEDS: ASPIRIN EC 81 MG TABEC PO SCH (08:38)
[2016-06-19] MEDS: INSULIN DETEMIR 100 UNITS/ML VIAL SQ SCH (08:38)
--- NOTE | 2016-06-19 09:21 | HHI.PR ---
Subjective Remarks Follow-up severe sepsis/aspiration pneumonia/DKA/encephalopathy 06/17/16-patient seen and examined; alert and oriented 3, denies any chest pain or shortness of breath however complains about being wobbly on his feet 06/18/16-patient seen and examined, stable and no complaints. Mom by the bedside 06/19/16-patient seen and examined. Currently nothing by mouth pending Lexiscan stress test. No acute event overnight and denies any chest pain or shortness of breath. Objective Vitals Vital Signs Date Time Temp Pulse Resp B/P Pulse Ox O2 Delivery O2 Flow Rate FiO2 06/19/16 08:06 98.4 68 20 130/64 93 06/19/16 04:00 98.5 63 19 114/58 92 06/19/16 00:00 99.2 75 18 128/60 93 06/18/16 20:00 98.4 76 18 129/63 92 06/18/16 16:00 97.8 74 20 139/76 96 06/18/16 12:00 98.5 70 20 154/74 96 I/O 06/18/16 06/18/16 06/18/16 06/19/16 06/19/16 06/19/16 07:00 15:00 23:00 07:00 15:00 23:00 Intake Total 230 ml 242 ml 280 ml 0 ml Balance 230 ml 242 ml 280 ml 0 ml Intake Oral 230 ml 240 ml 280 ml 0 ml IV Total 2 ml # Voids 3 1 1 2 # Bowel Movements 2 1 1 Result Diagram: 06/17/1661606/17/16616 Imaging Last Impressions Chest X-Ray 06/15/16 0000 Signed Impressions: Service Date/Time: May 03:56 - CONCLUSION: Left base consolidation or atelectasis. Kevin Augustin MD Abdomen X-Ray 06/15/16 0000 Signed Impressions: Service Date/Time: May 14:48 - CONCLUSION: 1. Nonobstructive bowel gas pattern. There are no findings to indicate ileus. 2. Hepatomegaly. 3. Stable airspace opacity in the left lower lobe representing either atelectasis or consolidation. Kevin Melissa MD Head CT 06/11/16 0000 Signed Impressions: Service Date/Time: Sunday, June 12, 2016 00:05 - CONCLUSION: 1. No acute abnormality seen. 2. 0.8 cm hypodensity in the right frontal lobe likely representing an area of focal encephalomalacia. No mass effect is seen. Kevin Augustin MD Objective Remarks GENERAL: NAD SKIN: Warm and dry. HEAD: Normocephalic. EYES: No scleral icterus. No injection or drainage. NECK: Supple, trachea midline. No JVD or lymphadenopathy. CARDIOVASCULAR: Regular rate and rhythm without murmurs, gallops, or rubs. RESPIRATORY: Breath sounds equal bilaterally. No accessory muscle use. GASTROINTESTINAL: Abdomen soft, non-tender, nondistended. MUSCULOSKELETAL: No cyanosis, or edema. BACK: Nontender without obvious deformity. No CVA tenderness. Procedures None A/P Problem List: (1) DKA (diabetic ketoacidoses) ICD Code: E13.10 Status: Resolved (2) Acute metabolic encephalopathy ICD Code: G93.41 Status: Resolved (3) Acute respiratory failure ICD Code: J96.00 Status: Resolved (4) Acute kidney failure ICD Code: N17.9 Status: Resolved (5) Hyperkalemia ICD Code: E87.5 Status: Acute (6) Hypothermia ICD Code: T68.XXXA Status: Resolved (7) Severe sepsis ICD Code: A41.9 Status: Resolved (8) High anion gap metabolic acidosis ICD Code: E87.2 Status: Resolved (9) Cocaine intoxication ICD Code: F14.929 Status: Resolved (10) Aspiration pneumonia ICD Code: J69.0 Status: Acute Assessment and Plan 50-year-old man with Acute metabolic encephalopathy-resolved Cocaine intoxication/abuse-resolved -Encephalopathy seems to be metabolic due to DKA, severe sepsis-resolved now -Counselled about cocaine use -Supplement multivitamin, thiamine Acute respiratory failure Aspiration pneumonia -Extubated 06/15/16 -DuoNeb every 6 hours and when necessary -Antibiotics as below Elevated troponin History of hypertension -Monitor HR and BP keep MAP>65mmHg. -Echo showed EF 50-55%, no RWMA.. Continue ASA 81mg daily -Cards -Dr. Diaz. Stress test/Lexiscan today 06/19/16 Acute kidney failure - resolved Hypernatremia -Monitor renal function, I/O's, electrolytes replacement per protocol. -Diuresed with Bumex 1mg x1 06/14 Severe sepsis Aspiration Pneumonia Sputum cx 06/11 Klebsiella, Beta strep, staph Aureus -Continue with abx per ID( Cefepime, Flagyl). Discharge on Levaquin by mouth -Monitor for signs of infections (fever, WBC) follow up on cxs Megaloblastic anemia -Monitor CBC, CMP, coags -Supplement thiamine Severe DKA-resolved Type 2 diabetes with noncompliance -SSI to medium scale with accuchecks Q4 -Levemir 15 units every 12H -Bilateral lower extremity SCDs. Lovenox 40 mg sq daily, Discharge Planning Discharge home if Lexiscan stress test negative Problem Qualifiers (1) DKA (diabetic ketoacidoses): (2) Cocaine intoxication: Qualified Code: F14.921 - Cocaine intoxication, with delirium Luigi Luu MD Jun 19, 2016 09:21
[2016-06-19] MEDS ORDERED: ASPI81TA11 PO (09:27)
[2016-06-19] MEDS ORDERED: LEVA750T PO (09:27)
[2016-06-19] MEDS ORDERED: NOVORP2 SQ (09:27)
[2016-06-19] MEDS ORDERED: LEVEMIR SQ (09:27)
[2016-06-19] MEDS ORDERED: METR-1 PO (09:27)
--- NOTE | 2016-06-19 09:32 | HHI.DS ---
Discharge Summary Admission Date Jun 11, 2016 at 07:17 Discharge Date: Jun 19, 2016 Admitting Diagnosis Severe DKA, Resp Failure, HyperK, Cocaine/EtOH (1) DKA (diabetic ketoacidoses) ICD Code: E13.10 Diagnosis: Principal (2) Acute metabolic encephalopathy ICD Code: G93.41 Diagnosis: Principal (3) Acute respiratory failure ICD Code: J96.00 Diagnosis: Principal (4) Acute kidney failure ICD Code: N17.9 Diagnosis: Principal (5) Hyperkalemia ICD Code: E87.5 Diagnosis: Principal (6) Hypothermia ICD Code: T68.XXXA Diagnosis: Principal (7) Severe sepsis ICD Code: A41.9 Diagnosis: Principal (8) High anion gap metabolic acidosis ICD Code: E87.2 Diagnosis: Principal (9) Cocaine intoxication ICD Code: F14.929 Diagnosis: Principal (10) Aspiration pneumonia ICD Code: J69.0 Diagnosis: Principal Procedures None Brief History - From Admission Patient is a 50-year-old [place] male with history of type 2 diabetes history of noncompliance to medications, hypertension, cocaine abuse who was brought to the emergency department by EMS. Apparently Blood sugar at home was read as high and patient was altered. He admitted to drinking orange vodka last night. Initial ABG was 6.88/16/132 with a base excess of -27.4. Patient was intubated for agitation, airway protection and severe acidemia. His blood sugar was 1100, potassium was 7.3, beta hydroxybutyrate was 10.7 consistent with severe DKA. Patient was given 10 units IV insulin and a total of 5 L normal saline bolus in the ED. DKA protocol was ordered, not started yet. For hyperkalemia along with hypocalcemia he received 3 g of calcium gluconate 150 mEq of bicarbonate 15 g Kayexalate. Zosyn given in the ED for severe hypothermia and leukocytosis. I evaluated the patient in the ICU. Patient is profoundly hypothermic temperature 92, borderline hypotensive with systolic blood pressure in the 90s. Blood urine and sputum cultures ordered. Zosyn will be continued along with 1 dose of vancomycin. Patient will be emergently started on DKA protocol. Lactic acid is pending at this time as well as troponin. His DKA precipitated by noncompliance and sepsis however acute coronary event need to be be ruled out CBC/BMP: 06/17/16 0617 06/17/16 0617 Significant Findings Laboratory Tests Test 06/17/16 06:17 White Blood Count 11.5 TH/MM3 (4.0-11.0) Red Blood Count 3.23 MIL/MM3 (4.50-5.90) Hemoglobin 10.5 GM/DL (13.0-17.0) Hematocrit 30.1 % (39.0-51.0) Monocytes (%) (Auto) 11.6 % (0.0-8.0) Monocytes # (Auto) 1.3 TH/MM3 (0-0.9) Sodium Level 146 MEQ/L (136-145) Potassium Level 3.4 MEQ/L (3.5-5.1) Chloride Level 112 MEQ/L (98-107) Random Glucose 113 MG/DL (74-106) Calcium Level 8.4 MG/DL (8.5-10.1) Aspartate Amino Transf 72 U/L (15-37) (AST/SGOT) Total Protein 5.6 GM/DL (6.4-8.2) Albumin 2.3 GM/DL (3.4-5.0) Imaging Last Impressions Chest X-Ray 06/15/16 0000 Signed Impressions: Service Date/Time: May 03:56 - CONCLUSION: Left base consolidation or atelectasis. Kevin Augustin MD Abdomen X-Ray 06/15/16 0000 Signed Impressions: Service Date/Time: May 14:48 - CONCLUSION: 1. Nonobstructive bowel gas pattern. There are no findings to indicate ileus. 2. Hepatomegaly. 3. Stable airspace opacity in the left lower lobe representing either atelectasis or consolidation. Kevin Melissa MD Head CT 06/11/16 0000 Signed Impressions: Service Date/Time: Sunday, June 12, 2016 00:05 - CONCLUSION: 1. No acute abnormality seen. 2. 0.8 cm hypodensity in the right frontal lobe likely representing an area of focal encephalomalacia. No mass effect is seen. Kevin Augustin MD PE at Discharge GENERAL: NAD SKIN: Warm and dry. HEAD: Normocephalic. EYES: No scleral icterus. No injection or drainage. NECK: Supple, trachea midline. No JVD or lymphadenopathy. CARDIOVASCULAR: Regular rate and rhythm without murmurs, gallops, or rubs. RESPIRATORY: Breath sounds equal bilaterally. No accessory muscle use. GASTROINTESTINAL: Abdomen soft, non-tender, nondistended. MUSCULOSKELETAL: No cyanosis, or edema. BACK: Nontender without obvious deformity. No CVA tenderness. Transfer Summary Patient is a 50-year-old [place] male with history of type 2 diabetes history of noncompliance to medications, hypertension, cocaine abuse who was brought to the emergency department by EMS. Apparently Blood sugar at home was read as high and patient was altered. Initial ABG was 6.88/16/132 with a base excess of -27.4. Patient was intubated for agitation, airway protection and severe acidemia. His blood sugar was 1100, potassium was 7.3, beta hydroxybutyrate was 10.7 consistent with severe DKA. Patient was given 10 units IV insulin and a total of 5 L normal saline bolus in the ED. DKA protocol was ordered. For hyperkalemia along with hypocalcemia he received 3 g of calcium gluconate 150 mEq of bicarbonate 15 g Kayexalate per the ER physician. Zosyn given in the ED for severe hypothermia and leukocytosis. In the ICU patient was profoundly hypothermic temperature 92, hypotensive with systolic blood pressure in the 90s. Blood urine and sputum cultures ordered. Zosyn was continued along with 1 dose of vancomycin. Patient started on DKA protocol. His DKA precipitated by noncompliance and sepsis however acute coronary event need to be be ruled out 06/12 Patient is sedated with Fentanyl, Diprivan and intubated. On Insulin drip 7units/hr ( AG closed) started on heparin drip overnight as troponin increased 1.31. Cardiology Dr. Diaz recommended and recommended stress test prior to discharge 06/13 Patient is sedated with Diprivan and intubated. Off Fentanyl drip. Spiked fever with T: 101.2 Placed back on insulin drip overnight 7u/hr. 06/14 Patient is sedated and intubated. Off insulin drip, Afebrile. 06/15: Intermittently follows commands. Remains intubated off sedation. Intermittently spiking fever up to 101, tolerating C Pap 5 over 5 06/16: Extubated yesterday tolerating well. Now sitting up in chair. Blood sugar control was improved after starting Levemir Hospital Course Patient initially admitted secondary to acute respiratory failure for which he was intubated and placed under the care of critical care medicine. He was positive for cocaine intoxication and had acute metabolic encephalopathy. He was started on insulin drip secondary to DKA. He was also diagnosed with aspiration pneumonia for which infectious disease specialist was consulted and patient started on IV antibiotics. His acute respiratory failure resolved and patient mentation improved. DKA resolved. On admission, he was found to have elevated troponin and cardiology was consulted, patient was started on aspirin daily. Lexiscan stress test was ordered and performed on 06/19/16. His DKA subsequently resolved and patient was started on insulin subcutaneous 15 units every 12H along with sliding scale. All electrolyte abnormalities were corrected accordingly. DVT and GI prophylaxis were provided. PT was consulted. Prior to discharge, his vitals remained stable. Pt Condition on Discharge: Stable Discharge Disposition: Discharge Home Discharge Time: <= 30 minutes Discharge Instructions DIET: Follow Instructions for: Diabetic Diet Activities you can perform: Regular-No Restrictions Follow up Referrals: PCP Follow-up - 1 Week New Medications: Levofloxacin (Levaquin) 750 Mg Tab 750 MG PO DAILY Infection #[address] (Aspirin EC) 81 Mg Tabdr 81 MG PO DAILY Prevent Blood Clot #30 TAB Insulin Detemir Inj (Levemir Inj) 1,000 unit/ 10 ML Vial 15 UNITS SQ Q12HR Blood Sugar Management #1000 Ref 3 INJECTION Insulin Human Regular Inj (Novolin R Inj) 1,000 Unit/10 Ml Vial 1 UNITS SQ Q4H Blood Sugar Management #1000 INJECTION Metronidazole (Flagyl) 500 Mg Tab 500 MG PO Q8HR Infection #21 TAB Continued Medications: Insulin Human NPH Inj (Novolin N Inj) 1,000 Unit/10 Ml Vial 0 SQ DIRECTED Sliding Scale As Directed. Blood Sugar Management #10 Ref 0 ML ([Kimberly Contour Strips]) 1 UNIT TOP TID #100 Ref 3 STRIPS Discontinued Medications: Insulin Human NPH Inj (Novolin N Inj) 1,000 Unit/10 Ml Vial 30 UNITS SQ DAILY Blood Sugar Management #10 Ref 0 ML Luigi Luu MD Jun 19, 2016 09:32
[2016-06-19] MEDS ORDERED: REGADENOSON INJ 0.4 MG/5 ML SYR ONE (10:07)
--- NOTE | 2016-06-19 12:09 | RADRPT ---
EXAM DATE/TIME: 06/19/2016 09:53 [facility] COMPARISON: No previous studies available for comparison. INDICATIONS : Cocaine abuse with mid chest pain for one day. Altered mental status. Abnormal EKG. DOSE: 25.9 mCi Tc99m Myoview at stress. 8.7 mCi Tc99m Myoview at rest. 0.4 mg Lexiscan STRESS SYMPTOMS: Chest pain and dyspnea. EJECTION FRACTION: 57% MEDICAL HISTORY : Hypertension. Diabetes mellitus type 2. SURGICAL HISTORY : Unobtainable. ENCOUNTER: Initial ACUITY: 1 day PAIN SCALE: 2/10 LOCATION: Midsternal chest TECHNIQUE: The patient underwent pharmacologic stress with infusion of prescribed dose. Continuous ECG tracing was monitored during stress. Gated SPECT imaging was performed after stress and conventional SPECT i maging was performed at rest. The examination was performed on a SPECT/CT scanner, both attenuation and non-corrected datasets were reviewed. FINDINGS: DISTRIBUTION: The best perfusion myocardium is the septum and inferior wall. Moderate gut activity does obscure the inferior wall. PERFUSION STUDY: The pattern of perfusion at stress is within normal limits. GATED STUDY: There is intact wall motion and thickening without hypokinetic or dyskinetic segments. CONCLUSION: Negative for stress-induced ischemia. RISK CATEGORY: Low (<1% Annual Mortality Rate) Onesimo Wheeler MD FACR on June 19, 2016 at 12:04 Board Certified Radiologist. This report was verified electronically.
[2016-09-05] MEDS ORDERED: HUMALOG SQ ×3 (15:15)
[2016-09-05] MEDS ORDERED: LANTUS2P SQ ×2 (15:15)
== END 2016-06-19 12:20 | disposition home or self-care (01) | DRG 871 ==
LOC: NEPE 04:45 → NEDA 07:17 → HIMN 08:45 → N04B 06-16 22:15
PROVIDERS: ADMIT Hospitalist; ATTEND Hospitalist
PROC: 0BH17EZ Insertion of Endotracheal Airway into Trachea, Via Natural or Artificial Opening (ICD-10-PCS; principal; 2016-06-11)
PROC: 5A1945Z Respiratory Ventilation, 24-96 Consecutive Hours (ICD-10-PCS; 2016-06-11)
DX: A41.9 Sepsis, unspecified organism (principal); J96.20 Acute and chronic respiratory failure, unspecified whether with hypoxia or hypercapnia; N17.0 Acute kidney failure with tubular necrosis; J69.0 Pneumonitis due to inhalation of food and vomit; G93.41 Metabolic encephalopathy; J15.211 Pneumonia due to Methicillin susceptible Staphylococcus aureus; E13.10 Other specified diabetes mellitus with ketoacidosis without coma; E87.0 Hyperosmolality and hypernatremia; D53.1 Other megaloblastic anemias, not elsewhere classified; E83.51 Hypocalcemia; E87.5 Hyperkalemia; R65.20 Severe sepsis without septic shock; I10 Essential (primary) hypertension; E86.0 Dehydration; R68.0 Hypothermia, not associated with low environmental temperature; Y90.0 Blood alcohol level of less than 20 mg/100 ml; R74.8 Abnormal levels of other serum enzymes; F10.10 Alcohol abuse, uncomplicated; F14.129 Cocaine abuse with intoxication, unspecified; F17.210 Nicotine dependence, cigarettes, uncomplicated; Z22.322 Carrier or suspected carrier of Methicillin resistant Staphylococcus aureus; Z79.4 Long term (current) use of insulin; Z91.14 Patient's other noncompliance with medication regimen; Z91.19 Patient's noncompliance with other medical treatment and regimen
CPT/HCPCS: 31500; 36600; 51702; 70450; 71010; 74000; 76937; 78452; 80048; 80053; 80074; 80307; 80320; 81001; 82010; 82550; 82552; 82607; 82746; 82805; 82948; 83605; 83690; 83735; 83880; 84100; 84155; 84443; 84484; 85007; 85025; 85027; 85610; 85730; 86403; 86592; 86703; 87040; 87070; 87077; 87086; 87147; 87186; 87205; 87491; 87591; 87641; 93005; 93017; 93306; 94002; 94003; 94640; 94664; 94667; 94668; 96361; 96365; 96374; 96375; 96376; A9502; J0610; J0692; J0696; J1644; J1650; J1815; J1817; J2250; J2543; J2785; J3010; J3370; J3411; J3480; J7030; J7042; J7050; J7070; J7120

== ENCOUNTER → 2016-09-06 | Outpatient (CLI) | payer OTHER ==
[~2016-09-06] VITALS: Ht 165.1 cm; Wt 81.9 kg
[~2016-09-06] MED LIST changes: +CHLORHEXIDINE GLUCONATE 2 % 1 PACK (2 CLOTHS) TOPICAL PRN; -GLIP5 OR; -GLUCTES27 XX; +HUMALOG SQ; -IBUP800 PO; +INSULIN HUMAN REGULAR 1,000 UNITS/10 ML VIAL SQ PRN; +LACTATED RINGER'S 1000 ML IV PRN; +LANTUS2P SQ; -LEVEMIR SQ; -LISI2.5T3 PO; +METOPROLOL TARTRATE 25 MG TAB PO PRN; -PIOG30 PO; +POVIDONE IODINE 5% (ANTISEPSIS KIT) 4 APPLICATIONS EACH NARE PRN; +PROPOFOL 200 MG/20 ML AMP IV ONE; +SODIUM CHLORID 0.9% 500 ML IV PRN; -[UNRECOGNIZED DRUG - OTHER] TOP; -[UNRECOGNIZED DRUG - SUPPLY] SQ
[2016-09-06 10:04] VITALS: BP 128/76; PULSE 77; RESP 20; TEMP 97.2; O2SAT 95
[2016-09-06 12:35] VITALS: TEMP 97.4
[2016-09-06 12:50] VITALS: BP 121/81; PULSE 88; RESP 18; O2SAT 98
--- NOTE | 2016-09-06 13:39 | MR ---
cc: ANGELA BELLE DATE: 09/06/2016 DATE OF : 1965 PROCEDURE: Colonoscopy. INDICATION FOR PROCEDURE Average risk screening. Photographs were taken. Polypectomy were also performed. Monitoring was accomplished with pulse oximeter, EKG, blood pressure monitor. PROCEDURE NOTE After informed consent was obtained and the procedure, risks and benefits were explained including the risks of bleeding, sepsis, perforation and risks of anesthesia, the patient was placed in left lateral position. Video colonoscope was inserted in the rectum. The rectum to the rectosigmoid area a small 4 or 5 mm polyp was found, initially we attempted to snare this polyp but it was quite small and therefore we biopsied it off. The scope was advanced with moderate difficulty due to some redundancy. The patient also had a significant amount of residual gelatinous material throughout the colon which made complete examination quite difficult. Ultimately we did reach the cecum. In the cecum ascending region again this gelatinous residual matter was still present and was very difficult to suction, making it impossible to rule out smaller polyps. In the ascending colon a 5-6 mm polyp was successfully snared off with a polypectomy snare and retrieved. The scope was gradually withdrawn. The transverse colon appeared to be grossly unremarkable, however, again there was some scattered gelatinous residual matter noted here as well. At about 40 cm from the anal verge in the proximal descending colon a 1 cm polyp on a very short pedicle was found. This was successfully resected and removed with a polypectomy snare in a piecemeal fashion. The base of the lesion was cauterized as well with a snare tip. The polyp was retrieved in total. The scope was gradually withdrawn. The patient tolerated the procedure well. No immediate complications were noted. IMPRESSION This examination revealed residual gelatinous material throughout the colon making complete evaluation rather difficult. Small lesions could be missed. The patient did have colon polyps found, the largest was in the proximal descending colon that was snared off in a piecemeal fashion. Hemostasis was maintained. Two other smaller polyps were removed as well, one was biopsy and the other one with polypectomy, however, due to the patient's retained fecal matter I would recommend follow up colonoscopy in 6 months for reevaluation and will discuss this with the patient. The patient will require a 2-day prep most likely. Will follow up the histopathology of the lesions removed today. MD AMEENA Warner/SUSIE /12:02 PM /1:19 PM
== END ==
LOC: HEND 08:41
PROVIDERS: ATTEND Internal Medicine Gastroenterology
DX: Z12.11 Encounter for screening for malignant neoplasm of colon (principal); K62.1 Rectal polyp; D12.2 Benign neoplasm of ascending colon
CPT/HCPCS: 00810; 45385; 88305; J7120

== ENCOUNTER 2017-11-17 06:20 | Inpatient (IN) ==
[2017-11-17] MEDS ORDERED: Sod Chloride 0.9% Inj 3,000 ML IV.SIG ONE (06:41)
[2017-11-17 07:07] LABS: Baso # (Auto) 0.1 th/mm3 (0.0-0.2); Baso % (Auto) 0.2 % (0.0-2.0); Eos % (Auto) 0.1 % (0.0-4.0); Hematocrit 48.2 % (39.0-51.0); Hemoglobin 14.3 gm/dL (13.0-17.0); Lymph # (Auto) 1.9 th/mm3 (1.0-4.8); Lymph % (Auto) 6.5 % (9.0-44.0); Mean Corpuscular Hemoglobin 31.3 pg (27.0-34.0); Mean Corpuscular Volume 105.9 fL (80.0-100.0); Mean Platelet Volume 9.6 fL (7.0-11.0); Mono # (Auto) 2.6 th/mm3 (0.0-0.9); Mono % (Auto) 8.9 % (0.0-8.0); Neut # (Auto) 24.8 th/mm3 (1.8-7.7); Neut % (Auto) 84.3 % (16.0-70.0); Platelet Count 259 th/mm3 (150-450); Red Blood Count 4.55 mil/mm3 (4.50-5.90); Red Cell Distribution Width 15.4 % (11.6-17.2); White Blood Count 29.4 th/mm3 (4.0-11.0)
[2017-11-17 07:14] LABS: Mean Corpuscular HGB Conc 29.6 % (32.0-36.0)
--- NOTE | 2017-11-17 07:17 | XR ---
EXAM DATE: 11/17/2017 6:58 AM EDT AGE/SEX: 52 years / Male INDICATIONS: Weakness, vomiting for 3 days CLINICAL DATA: This is the patient's initial encounter. Patient reports that signs and symptoms have been present for 3 days and indicates a pain score of Nonresponsive. MEDICAL/SURGICAL HISTORY: Diabetes mellitus type II. None. [place] [facility] [place] . FINDINGS: The lungs are clear without infiltrate, nodule, or mass. There is no appreciable pleural effusion for technique. Heart and mediastinum are unremarkable. CONCLUSION: No acute cardiopulmonary disease. Electronically signed by: Vidal Masters MD 11/17/2017 7:16 AM EDT
[2017-11-17 07:19] LABS: Alanine Aminotransferase 38 U/L (12-78); Albumin 3.4 g/dL (3.4-5.0); Alkaline Phosphatase 165 U/L (45-117); Anion Gap 33 meq/L (5-15); Aspartate Aminotransferase 32 U/L (15-37); Blood Urea Nitrogen 47 mg/dL (7-18); Calcium 8.4 mg/dL (8.5-10.1); Carbon Dioxide 4.8 meq/L (21.0-32.0); Chloride 90 meq/L (98-107); Glomerular Filtration Rate 21 mL/min (>89); Sodium 128 meq/L (136-145); Total Protein 7.1 g/dL (6.4-8.2)
[2017-11-17 07:20] LABS: Glucose,Random 1237 mg/dL (74-106); Potassium 8.2 meq/L (3.5-5.1)
[2017-11-17] MEDS ORDERED: Potassium Chlor 40 mEq Premix 40 MEQ/100 ML PIGGYBACK IV.SIG PRN ×2 (07:20)
[2017-11-17] MEDS ORDERED: Insulin Regular (For Infusion) 100 UNIT in Sodium Chlor 0.9% Inj 99 ML IV.CONT PRN ×2 (07:20→21:46)
[2017-11-17] MEDS ORDERED: Sodium Phosphate Inj 15 MMOL in Sodium Chlor 0.9% Inj 100 ML IV.SIG PRN (07:20)
[2017-11-17] MEDS ORDERED: Potassium Chlor 20 mEq Premix 20 MEQ/100 ML PIGGYBACK IV.SIG PRN ×6 (07:20)
[2017-11-17 07:30] LABS: Lymphocytes 4 % (9-44); Monocytes 12 % (0-8)
[2017-11-17 07:31] LABS: Platelet Estimate Normal (Normal); Platelet Morphology Normal (Normal); RBC Morphology Normal (Normal)
[2017-11-17 07:33] LABS: Beta Hydroxybutyric Acid 13.75 mmol/L (0.00-0.39)
[2017-11-17 07:39] LABS: VBG Base Excess -24.5 mmol/L (-2-2); VBG Blood Gas Oxygen Content 13.7 Vol % (9.0-17.0); VBG PCO2 26 mmHG (44-48); VBG PH 6.93 (7.360-7.400); VBG PO2 43 mmHG (35-40)
[2017-11-17 07:39] LABS: Magnesium 2.9 mg/dL (1.5-2.5)
[2017-11-17 07:51] LABS: Phosphorus 8.2 mg/dL (2.5-4.9)
--- NOTE | 2017-11-17 07:53 | ED ---
HPI General Chief complaint: Nausea/Vomiting/Diarrhea Stated complaint: Vomiting/Weakness x 3 days Time Seen by Provider: 11/17/17 07:02 Source: patient and family Mode of arrival: ambulatory Limitations: no limitations History of Present Illness complaint: nausea and vomiting Onset (ago): day(s) (3) Description of Diarrhea: none Severity: severe Relieving factors: none Exacerbating factors: none Context: other (noncompliant diabetic) Associated symptoms: nausea/vomiting and other (polydipsia) Related Data Home Medications Medication Instructions Recorded Confirmed Novolin N NPH U-100 Insulin 11/17/17 insulin regular human 11/17/17 Allergies Allergy/AdvReac Type Severity Reaction Status Date / Time metformin AdvReac Mild Diarrhea Verified 11/17/17 07:08 *MDRO Multi-Drug Resistant AdvReac Unknown MRSA Uncoded 11/17/17 07:08 Organism Review of Systems Except as stated in HPI: all other systems reviewed are negative [facility] Medical History Medical History Acute kidney failure (Acute) Cocaine abuse (Acute) Diabetes (Acute) Hypertension (Acute) Respiratory failure (Acute) Sepsis (Acute) Social History Social History Substance History: Active Abuse Second Hand Smoke Exposure: Yes Smoking Status: Never smoker Tobacco Type: Cigarettes How Often Do You Have a Drink Containing Alcohol: Never Recent Travel in [facility] within the Last 8 Weeks: No Recent Out of Country Travel within the Last 8 Weeks: No Immunization History Tetanus Immunization: <5 Years Exam Const General: cooperative and acute distress (Kussmaul resp) Nutritional Appearance: average body habitus [facility] Head: normocephalic and atraumatic Mouth: moist mucous membranes abnormal (dry) Eyes General: appearance normal, both eyes and all related structures Conjunctivae: conjunctivae normal Sclera: sclerae normal EOM: EOM intact bilaterally Neck Neck: normal visual inspection and full ROM Chest Chest: normal inspection of the chest Resp Effort & Inspection: tachypneic (Kussmaul pattern) Auscultation: clear to auscultation bilaterally Cardio Rate: tachycardic Rhythm: regular rhythm Heart Sounds: S1 normal and S2 normal GI Inspection: normal to inspection Palpation: soft and nontender Back/Spine/Pelvis Cervical Spine: cervical ROM normal Thoracic/Lumbar Spine: thoraco-lumbar ROM normal Skin General: no rashes or lesions noted and turgor normal Neuro General: alert, awake, oriented x3, moves all extremities and CN's II-XI intact bilaterally Extrem General: normal to inspection and full ROM Psych Appearance: grossly normal Mental Status: mental status grossly normal Course Consultations Consultation #1: Dr. Rodgers Time: 07:45 Initial Documented Vital Signs Pulse Rate 106 H 11/17/17 06:23 Blood Pressure 111/54 L 11/17/17 06:23 Pulse Oximetry 97 11/17/17 06:23 Last Documented Vital Signs Pulse Rate 102 H 11/17/17 07:10 Respiratory Rate 24 11/17/17 07:10 Blood Pressure 99/44 L 11/17/17 07:10 Pulse Oximetry 100 11/17/17 07:10 Medical Decision Making MDM Narrative Medical decision making narrative: This is a patient with a history of diabetes and previous DKA as well as noncompliance who presents to us this morning with about a 3 day history of nausea and vomiting. His symptoms have been getting progressively worse. His family eventually brought him in to us today for further evaluation and treatment. He occasionally uses his insulin. His reports that he last used insulin yesterday but probably not the day before that. His evaluation is compatible with DKA. He was given a bolus of insulin and has been placed on an insulin drip. He is receiving a 3 L bolus of normal saline. DKA protocol has been initiated. He is hyperkalemic but is on an insulin drip. The hyperkalemia will not be further addressed at this time. His potassium is likely to return to normal or even become low with treatment for DKA. CRITICAL CARE Total critical care time was 45 minutes Time to perform other separately billable procedures was not included in the critical care time. My time did not include minutes spent treating any other patients simultaneously or on activities that did not directly contribute to the patient's treatment. The services I provided to this patient were to treat and/or prevent clinically significant deterioration due to I provided critical care services requiring my management, as noted below: Chart data review, documentation time, medication orders and management, vital sign assessments/reviewing monitor data, ordering and reviewing lab tests, ordering and interpreting/reviewing x-rays and diagnostic studies, care of the patient and discussion of the patient with the admitting physicians Lab Data Lab results reviewed: Yes I reviewed the patient's lab results. Result diagrams: 11/17/17 06:45 11/17/17 06:45 Lab Results 11/17/17 11/17/17 11/17/17 Range/Units 06:45 06:45 06:45 CBC w Diff Slide review pending WBC 29.4 H (4.0-11.0) th/mm3 RBC 4.55 (4.50-5.90) mil/mm3 Hgb 14.3 (13.0-17.0) gm/dL Hct 48.2 (39.0-51.0) % MCV 105.9 H (80.0-100.0) fL MCH 31.3 (27.0-34.0) pg MCHC 29.6 L (32.0-36.0) % RDW 15.4 (11.6-17.2) % Plt Count 259 (150-450) th/mm3 MPV 9.6 (7.0-11.0) fL Neut % (Auto) 84.3 H (16.0-70.0) % Lymph % (Auto) 6.5 L (9.0-44.0) % [place] % (Auto) 8.9 H (0.0-8.0) % Eos % (Auto) 0.1 (0.0-4.0) % Baso % (Auto) 0.2 (0.0-2.0) % Neut # (Auto) 24.8 H (1.8-7.7) th/mm3 Lymph # (Auto) 1.9 (1.0-4.8) th/mm3 [place] # (Auto) 2.6 H (0.0-0.9) th/mm3 Eos # (Auto) 0.0 (0.0-0.4) th/mm3 Baso # (Auto) 0.1 (0.0-0.2) th/mm3 WBC Differential Manual diff final Seg Neuts % (Manual) 58 (16-70) % Band Neuts % (Manual) 26 H (0-6) % Lymphocytes % (Manual) 4 L (9-44) % Monocytes % (Manual) 12 H (0-8) % Abs Neuts (Manual) 24.7 H (1.8-7.7) th/mm3 Differential Comment . Platelet Estimate Normal (Normal) Platelet Morphology Normal (Normal) RBC Morphology Normal (Normal) Sodium 128 L (136-145) meq/L Potassium 8.2 H* (3.5-5.1) meq/L Chloride 90 L (98-107) meq/L Carbon Dioxide 4.8 L (21.0-32.0) meq/L Anion Gap 33 H (5-15) meq/L BUN 47 H (7-18) mg/dL Creatinine 3.10 H (0.60-1.30) mg/dL Estimated GFR 21 L (>89) mL/min Random Glucose 1237 H* (74-106) mg/dL Calcium 8.4 L (8.5-10.1) mg/dL Magnesium (1.5-2.5) mg/dL Total Bilirubin 0.6 (0.2-1.0) mg/dL AST 32 (15-37) U/L ALT 38 (12-78) U/L Alkaline Phosphatase 165 H (45-117) U/L Total Protein 7.1 (6.4-8.2) g/dL Albumin 3.4 (3.4-5.0) g/dL Lipase 1114 H (73-393) U/L Beta-Hydroxybutyric Acd 13.75 H (0.00-0.39) mmol/L 11/17/17 Range/Units 06:45 CBC w Diff WBC (4.0-11.0) th/mm3 RBC (4.50-5.90) mil/mm3 Hgb (13.0-17.0) gm/dL Hct (39.0-51.0) % MCV (80.0-100.0) fL MCH (27.0-34.0) pg MCHC (32.0-36.0) % RDW (11.6-17.2) % Plt Count (150-450) th/mm3 MPV (7.0-11.0) fL Neut % (Auto) (16.0-70.0) % Lymph % (Auto) (9.0-44.0) % [place] % (Auto) (0.0-8.0) % Eos % (Auto) (0.0-4.0) % Baso % (Auto) (0.0-2.0) % Neut # (Auto) (1.8-7.7) th/mm3 Lymph # (Auto) (1.0-4.8) th/mm3 [place] # (Auto) (0.0-0.9) th/mm3 Eos # (Auto) (0.0-0.4) th/mm3 Baso # (Auto) (0.0-0.2) th/mm3 WBC Differential Seg Neuts % (Manual) (16-70) % Band Neuts % (Manual) (0-6) % Lymphocytes % (Manual) (9-44) % Monocytes % (Manual) (0-8) % Abs Neuts (Manual) (1.8-7.7) th/mm3 Differential Comment Platelet Estimate (Normal) Platelet Morphology (Normal) RBC Morphology (Normal) Sodium (136-145) meq/L Potassium (3.5-5.1) meq/L Chloride (98-107) meq/L Carbon Dioxide (21.0-32.0) meq/L Anion Gap (5-15) meq/L BUN (7-18) mg/dL Creatinine (0.60-1.30) mg/dL Estimated GFR (>89) mL/min Random Glucose (74-106) mg/dL Calcium (8.5-10.1) mg/dL Magnesium 2.9 H (1.5-2.5) mg/dL Total Bilirubin (0.2-1.0) mg/dL AST (15-37) U/L ALT (12-78) U/L Alkaline Phosphatase (45-117) U/L Total Protein (6.4-8.2) g/dL Albumin (3.4-5.0) g/dL Lipase (73-393) U/L Beta-Hydroxybutyric Acd (0.00-0.39) mmol/L Imaging Data Attestation: I personally reviewed and interpreted this imaging study as follows : Radiologist's impression: Chest X-Ray 11/17/17 06:44 CONCLUSION: No acute cardiopulmonary disease. ECG Data EKG Prior to Arrival: No Attestation: I personally reviewed and interpreted this ECG as follows: (EKG shows a sinus rhythm with a rate of 99. No significant acute STT wave change.) Discharge Plan Discharge Disposition Patient Disposition: 30 Still Patient Discharge Details Diagnosis: Diabetic ketoacidosis Physicians Team ED Provider: Charlene Porter Primary Care Provider: Primary Care Physici,No Rxs /Orders / Referrals /Forms Prescriptions: No Action insulin regular human 100 unit/mL Solution RF: 0 Novolin N NPH U-100 Insulin RF: 0 Discharge Interventions Interventions: Vital Signs Last Done: 11/17/17 07:10 Status ED Status: With Doctor
[2017-11-17 08:13] LABS: Bilirubin,Urine Negative (Negative); Clarity,Urine Clear (Clear); Color,Urine Yellow (Yellw/Straw); Leukocyte Esterase,Urine Negative (Negative); Nitrite,Urine Negative (Negative); PH,Urine 5.5 (5.0-8.5); Urobilinogen,Urine 0.2 mg/dL (Less than 2)
[2017-11-17 08:22] LABS: Amphetamine Screen,Urine Neg (Neg); Barbiturate Screen,Urine Neg (Neg); Cannabinoid Screen,Urine Neg (Neg)
[2017-11-17 08:24] LABS: Collection Time,Urine 800 hours; RBC,Urine 0-3 /hpf (0-3); Squamous Epithelial Cell,Urine 0-5 /hpf (0-5); WBC,Urine 0-5 /hpf (0-5)
[2017-11-17 08:25] LABS: Amorphous Sediment,Urine Moderate /hpf
[2017-11-17 08:30] LABS: Cocaine Screen,Urine Neg (Neg)
[2017-11-17 08:37] LABS: Opiate Screen,Urine Neg (Neg)
--- NOTE | 2017-11-17 09:11 | P.HP ---
<Tami Lassiter - Last Filed: 11/17/17 11:40> History of Present Illness Service: Critical care Primary Care Physician: No Primary Care Physician Chief Complaint: Nausea and vomiting History of Present Illness: This is a 52-year-old male patient with a known medical history of noncompliance with type 2 diabetes, hypertension, history of substance/cocaine abuse came into the ED with complaints of nausea and vomiting 3 days. Patient states over the past 3 days he has felt dizzy, no energy and has been unable to eat anything by mouth without nausea. Patient states that he does not have a PCP but follows with [facility], last seen three weeks ago with no changes to his medications, who manages and prescribes his insulin. Per patient, he has been prescribed NPH 40 units 3 times daily as well as insulin sliding scale , averaging roughly 15 units of Novolin R before each meal. Further into the conversation patient admitted that he has not been checking his blood sugars the way he should be and has been relatively noncompliant with his insulin therapy. Patient does deny any alcohol use or illicit drug use. Toxicology screen negative in ED. Initial VBG showed pH 6.9/26/43, with a base excess of - 24.5. Blood sugar was initially 1237, potassium 8.2, beta hydroxybutyrate 13.75 consistent with severe DKA. Patient was given 6 units IV of Novolin regular insulin as well as 3 L NS bolus. DKA protocol was initiated. It should also be noted that patient presented with leukocytosis with left band shift, white blood cells 29.4 with lactic acid 3.7. Lipase 1114. Likely secondary to acute pancreatitis. Patient denies any alcohol abuse. An abdominal CT has been ordered and pending. He denies any recent fever, cough, shortness of breath. UA negative. Chest x-ray insignificant. - Diagnosis (1) Diabetic ketoacidosis (2) Acute pancreatitis (3) Acute kidney injury (4) Severe sepsis (5) High anion gap metabolic acidosis (6) Hyperkalemia (7) Hyponatremia Inpatient Certification: I certify that the inpatient services were ordered in accordance with Medicare regulations governing the order. This includes certification that hospital inpatient services are reasonable and necessary and in the case of services not specified as inpatient-only under 42 CFR 419.22(n), that they are appropriately provided as inpatient services in accordance to with the 2-midnight benchmark under 43 CFR 412.3(e) Estimated Total Length of Stay (Days): 7 Plans for Post Hospital Care: Not yet determined Review of Systems All other systems reviewed negative except as stated in HPI [facility] - History History Provided By: Patient, Family Member - Medical History Medical History: Medical History (Last Updated 11/17/17 @ 07:43 by Charlene Porter) Acute kidney failure Cocaine abuse Diabetes Hypertension Respiratory failure Sepsis - Surgical History Surgical History: Surgical History (Last Updated 11/17/17 @ 09:58 by Tami Lassiter) No history of previous surgery - Family History Family History: Family History (Last Updated 11/17/17 @ 09:58 by Tami Lassiter) Father Cardiovascular disease Mother Breast cancer - Tobacco History Second Hand Smoke Exposure: Yes Tobacco Use In Past 30 Days: Yes Smoking Status: Current every day smoker Tobacco Type: Cigarettes Packs Per Day: 0.5 - Alcohol History How Often Do You Have a Drink Containing Alcohol: Never - Substance Use History Substance History: Past History - Travel History History of Recent Travel: No Recent Travel in the [place] Within the Last 8 Weeks: No Recent Travel Out of the Country Within the Last 8 Weeks: No - Immunization History Tetanus Immunization: <5 Years Medications and Allergies Allergies Allergy/AdvReac Type Severity Reaction Status Date / Time metformin AdvReac Mild Diarrhea Verified 11/17/17 07:08 *MDRO Multi-Drug Resistant AdvReac Unknown MRSA Uncoded 11/17/17 07:08 Organism Home Medications Medication Instructions Recorded Confirmed Type Novolin N NPH U-100 Insulin 11/17/17 History insulin regular human 11/17/17 History Active Medications: Active Medications Albuterol (Duoneb Neb (Prn)) 1 ampul NEB Q2HR NEB PRN PRN Reason: WHEEZING Chlorhexidine Gluconate (Chlorhexidine 2% Cloth) 3 pack TOPICAL DAILY@0400 FLAKO Stop: 11/23/17 03:59 Chlorhexidine Gluconate (Chlorhexidine 2% Cloth) 3 pack TOPICAL DAILY@0400 PRN PRN Reason: Extra cloth needed Stop: 11/23/17 03:59 Famotidine (Pepcid Pf Inj) 20 mg IV.PUSH Q12HR FLAKO Heparin Sodium (Porcine) (Heparin Inj) 5,000 units SQ Q8H FLAKO Dextrose/Sodium Chloride (D5w/Normal Saline Inj) 1,000 mls @ 200 mls/hr IV.CONT .Q5H FLAKO Insulin Human Regular 100 unit (/ Sodium Chloride) 100 mls @ 7 mls/hr IV.CONT TITRATE PRN; Protocol PRN Reason: See protocol Last Admin: 11/17/17 07:55 Dose: 7 units/hr, 7 mls/hr Potassium Chloride (Kcl 20 Meq Premix Inj) 20 meq in 100 mls @ 100 mls/hr IV.SIG Q1H PRN PRN Reason: for K+ 4.5 to 5 Potassium Chloride (Kcl 20 Meq Premix Inj) 20 meq in 100 mls @ 100 mls/hr IV.SIG Q1H PRN PRN Reason: for K+ 3.5 to 4.4 Potassium Chloride (Kcl 20 Meq Premix Inj) 20 meq in 100 mls @ 50 mls/hr IV.SIG Q2H PRN PRN Reason: for K+ 3.5 to 4.4 Potassium Chloride (Kcl 20 Meq Premix Inj) 20 meq in 100 mls @ 50 mls/hr IV.SIG Q2H PRN PRN Reason: for Initial K+ ONLY < 3.5 Potassium Chloride (Kcl 40 Meq Premix Inj) 40 meq in 100 mls @ 100 mls/hr IV.SIG Q1H PRN PRN Reason: for Initial K+ ONLY < 3.5 Potassium Chloride (Kcl 20 Meq Premix Inj) 20 meq in 100 mls @ 50 mls/hr IV.SIG Q2H PRN PRN Reason: for Subsequent K+ < 3.5 Potassium Chloride (Kcl 40 Meq Premix Inj) 40 meq in 100 mls @ 50 mls/hr IV.SIG Q2H PRN PRN Reason: for Subsequent K+ < 3.5 Sodium Chloride (Ns Inj) 1,000 mls @ 250 mls/hr IV.CONT .Q4H FLAKO Sodium Phosphate 15 mmol/ (Sodium Chloride) 105 mls @ 25 mls/hr IV.SIG UNSCH PRN PRN Reason: for Phosphate Level < 1.0 Potassium Chloride (Kcl 20 Meq Premix Inj) 20 meq in 100 mls @ 50 mls/hr IV.SIG Q2H PRN PRN Reason: for K+ 4.5 to 5 Ondansetron HCl (Zofran Inj) 4 mg IV.PUSH Q6H PRN PRN Reason: NAUSEA OR VOMITING Sodium Bicarbonate (Sodium Bicarbonate 8.4% Inj) 100 meq IV.PUSH UNSCH PRN PRN Reason: for pH less than 6.9 Sodium Bicarbonate (Sodium Bicarbonate 8.4% Inj) 50 meq IV.PUSH UNSCH PRN PRN Reason: for pH 6.9 to 7.0 Last Admin: 11/17/17 08:19 Dose: 50 meq Sodium Chloride (Ns Flush) 2 ml IV.FLUSH PRN PRN PRN Reason: FLUSH AFTER USING IV ACCESS Sodium Chloride (Ns Flush) 2 ml IV.FLUSH BID FLAKO Exam Vital signs: Vital Signs 11/17/17 06:23 11/17/17 07:10 11/17/17 07:40 Pulse Rate 106 H 102 H 110 H Respiratory Rate 24 22 Blood Pressure 111/54 L 99/44 L 140/68 Pulse Oximetry 97 100 98 11/17/17 08:20 Pulse Rate 118 H Respiratory Rate 28 H Blood Pressure 133/77 Pulse Oximetry 99 Intake & Output 11/16/17 11/17/17 11/17/17 18:59 06:59 18:59 Output Total 750 / 750 Balance -750 / -750 Weight 72.575 kg Output: Urine 750 / 750 Narrative: GENERAL: Well-developed, well-nourished 52-year-old male patient in [facility]. SKIN: Cool and dry. No rash. HEAD: Normocephalic. Atraumatic. EYES: Pupils equal and round. No scleral icterus. No injection or drainage. ENT: No nasal bleeding or discharge. Mucous membranes pink and moist. NECK: Supple. Trachea midline. No JVD. CARDIOVASCULAR: Regular rate and rhythm. S1, S2 noted. No murmur appreciated. RESPIRATORY: No accessory muscle use. Clear to auscultation. Breath sounds equal bilaterally. GASTROINTESTINAL: Abdomen soft, non-tender, nondistended. Normoactive bowel sounds x4. MUSCULOSKELETAL: No obvious deformities. Extremities without clubbing, cyanosis , or edema. NEUROLOGICAL: Awake and alert. No obvious cranial nerve deficits. Motor grossly within normal limits. 5/5 muscle strength in bilateral upper and lower extremities. Normal speech. PSYCHIATRIC: Appropriate mood and affect; insight and judgment normal. - Routine HEENT Exam Head: Present: normocephalic Eye: Present: EOMI, PERRL ENT: Present: mucous membranes moist - Routine Neck Exam Present: supple - Routine Cardiovascular Exam Present: RRR, S1, S2 - Routine Abdominal Exam Present: soft - Routine Skin Exam Present: intact - Routine Neurological Exam Present: alert, oriented X3 Results - Labs CBC & Chem 7: 11/17/17 06:45 11/17/17 08:55 Labs: Laboratory Results - last 24 hr 11/17/17 11/17/17 11/17/17 06:45 06:45 06:45 CBC w Diff Slide review pending WBC 29.4 H RBC 4.55 Hgb 14.3 Hct 48.2 MCV 105.9 H MCH 31.3 MCHC 29.6 L RDW 15.4 Plt Count 259 MPV 9.6 Neut % (Auto) 84.3 H Lymph % (Auto) 6.5 L [place] % (Auto) 8.9 H Eos % (Auto) 0.1 Baso % (Auto) 0.2 Neut # (Auto) 24.8 H Lymph # (Auto) 1.9 [place] # (Auto) 2.6 H Eos # (Auto) 0.0 Baso # (Auto) 0.1 WBC Differential Manual diff final Seg Neuts % (Manual) 58 Band Neuts % (Manual) 26 H Lymphocytes % (Manual) 4 L Monocytes % (Manual) 12 H Abs Neuts (Manual) 24.7 H Differential Comment . Platelet Estimate Normal Platelet Morphology Normal RBC Morphology Normal Puncture Site Patient Temperature VBG pH VBG pCO2 VBG pO2 VBG HCO3 VBG O2 Saturation VBG O2 Content VBG Base Excess VBG Carboxyhemoglobin VBG Methemoglobin Hemoglobin O2 Delivery Device Inspired O2 Critical Value Sodium 128 L Potassium 8.2 H* Chloride 90 L Carbon Dioxide 4.8 L Anion Gap 33 H BUN 47 H Creatinine 3.10 H Estimated GFR 21 L POC Glucose Random Glucose 1237 H* Calcium 8.4 L Phosphorus Magnesium Total Bilirubin 0.6 AST 32 ALT 38 Alkaline Phosphatase 165 H Troponin I Total Protein 7.1 Albumin 3.4 Lipase 1114 H Beta-Hydroxybutyric Acd 13.75 H Ur Collection Type Urine Color Urine Clarity Urine pH Ur Specific [place] Urine Protein Urine Glucose (UA) Urine Ketones Urine Occult Blood Urine Nitrate Urine Bilirubin Urine Urobilinogen Ur Leukocyte Esterase Urine RBC Urine WBC Ur Squamous Epith Cells Amorphous Sediment Urine Collection Time Urine Opiates Screen Ur Barbiturates Screen Ur Amphetamines Screen U Benzodiazepines Scrn Urine Cocaine Screen U Cannabinoids Screen 11/17/17 11/17/17 11/17/17 06:45 06:45 07:31 CBC w Diff WBC RBC Hgb Hct MCV MCH MCHC RDW Plt Count MPV Neut % (Auto) Lymph % (Auto) [place] % (Auto) Eos % (Auto) Baso % (Auto) Neut # (Auto) Lymph # (Auto) [place] # (Auto) Eos # (Auto) Baso # (Auto) WBC Differential Seg Neuts % (Manual) Band Neuts % (Manual) Lymphocytes % (Manual) Monocytes % (Manual) Abs Neuts (Manual) Differential Comment Platelet Estimate Platelet Morphology RBC Morphology Puncture Site L.ac Patient Temperature 98.6 VBG pH 6.93 L* VBG pCO2 26 L VBG pO2 43 H VBG HCO3 5 L* VBG O2 Saturation 67 L VBG O2 Content 13.7 VBG Base Excess -24.5 L VBG Carboxyhemoglobin 1.1 VBG Methemoglobin 1.9 Hemoglobin 14.5 O2 Delivery Device Room air Inspired O2 21 Critical Value Yes Sodium Potassium Chloride Carbon Dioxide Anion Gap BUN Creatinine Estimated GFR POC Glucose Random Glucose Calcium Phosphorus 8.2 H Magnesium 2.9 H Total Bilirubin AST ALT Alkaline Phosphatase Troponin I Less than 0.02 L Total Protein Albumin Lipase Beta-Hydroxybutyric Acd Ur Collection Type Urine Color Urine Clarity Urine pH Ur Specific [place] Urine Protein Urine Glucose (UA) Urine Ketones Urine Occult Blood Urine Nitrate Urine Bilirubin Urine Urobilinogen Ur Leukocyte Esterase Urine RBC Urine WBC Ur Squamous Epith Cells Amorphous Sediment Urine Collection Time Urine Opiates Screen Ur Barbiturates Screen Ur Amphetamines Screen U Benzodiazepines Scrn Urine Cocaine Screen U Cannabinoids Screen 11/17/17 11/17/17 11/17/17 08:00 08:00 08:55 CBC w Diff WBC RBC Hgb Hct MCV MCH MCHC RDW Plt Count MPV Neut % (Auto) Lymph % (Auto) [place] % (Auto) Eos % (Auto) Baso % (Auto) Neut # (Auto) Lymph # (Auto) [place] # (Auto) Eos # (Auto) Baso # (Auto) WBC Differential Seg Neuts % (Manual) Band Neuts % (Manual) Lymphocytes % (Manual) Monocytes % (Manual) Abs Neuts (Manual) Differential Comment Platelet Estimate Platelet Morphology RBC Morphology Puncture Site Patient Temperature VBG pH VBG pCO2 VBG pO2 VBG HCO3 VBG O2 Saturation VBG O2 Content VBG Base Excess VBG Carboxyhemoglobin VBG Methemoglobin Hemoglobin O2 Delivery Device Inspired O2 Critical Value Sodium Potassium Chloride Carbon Dioxide Anion Gap BUN Creatinine Estimated GFR POC Glucose Greater than 600 H* Random Glucose Calcium Phosphorus Magnesium Total Bilirubin AST ALT Alkaline Phosphatase Troponin I Total Protein Albumin Lipase Beta-Hydroxybutyric Acd Ur Collection Type Clean catch Urine Color Yellow Urine Clarity Clear Urine pH 5.5 Ur Specific [place] 1.010 Urine Protein Trace Urine Glucose (UA) 1000 or greater H Urine Ketones 40 H Urine Occult Blood Moderate H Urine Nitrate Negative Urine Bilirubin Negative Urine Urobilinogen 0.2 Ur Leukocyte Esterase Negative Urine RBC 0-3 Urine WBC 0-5 Ur Squamous Epith Cells 0-5 Amorphous Sediment Moderate H Urine Collection Time 800 Urine Opiates Screen Neg Ur Barbiturates Screen Neg Ur Amphetamines Screen Neg U Benzodiazepines Scrn Neg Urine Cocaine Screen Neg U Cannabinoids Screen Neg - Imaging Impressions Chest X-Ray 11/17/17 06:44 CONCLUSION: No acute cardiopulmonary disease. Caprini VTE Risk Assessment Caprini VTE Risk Assessment: No/Low Risk (score <= 1) Caprini Risk Assessment Model: Point Value = 1 Point Value = 2 Point Value = 3 Point Value = 5 Age 41-60 Minor surgery BMI > 25 kg/m2 Swollen legs Varicose veins or History of unexplained or recurrent spontaneous Oral contraceptives or hormone replacement Sepsis (< 1 month) Serious lung disease, including pneumonia (< 1 month) Abnormal pulmonary function Acute myocardial infarction Congestive heart failure (< 1 month) History of inflammatory bowel disease Medical patient at bed rest Age 61-74 Arthroscopic surgery Major open surgery (> 45 min) Laparoscopic surgery (> 45 min) Malignancy Confined to bed (> 72 hours) Immobilizing plaster cast Central venous access Age >= 75 History of VTE Family history of VTE Factor V Leiden Prothrombin [id number] Lupus anticoagulant Anticardiolipin antibodies Elevated serum homocysteine Heparin-induced thrombocytopenia Other congenital or acquired thrombophilia Stroke (< 1 month) Elective arthroplasty Hip, pelvis, or leg fracture Acute spinal cord injury (< 1 month) Prophylaxis Regimen: Total Risk Factor Score Risk Level Prophylaxis Regimen 0-1 Low Early ambulation 2 Moderate Order ONE of the following: *Sequential Compression Device (SCD) *Heparin 5000 units SQ BID 3-4 Higher Order ONE of the following medications: *Heparin 5000 units SQ TID *Enoxaparin/Lovenox 40 mg SQ daily (WT < 150 kg, CrCl > 30 mL/min) *Enoxaparin/Lovenox 30 mg SQ daily (WT < 150 kg, CrCl > 10-29 mL/min) *Enoxaparin/Lovenox 30 mg SQ BID (WT < 150 kg, CrCl > 30 mL/min) AND/OR *Sequential Compression Device (SCD) 5 or more Highest Order ONE of the following medications: *Heparin 5000 units SQ TID (Preferred with Epidurals) *Enoxaparin/Lovenox 40 mg SQ daily (WT < 150 kg, CrCl > 30 mL/min) *Enoxaparin/Lovenox 30 mg SQ daily (WT < 150 kg, CrCl > 10-29 mL/min) *Enoxaparin/Lovenox 30 mg SQ BID (WT < 150 kg, CrCl > 30 mL/min) AND *Sequential Compression Device (SCD) Assessment and Plan - Assessment (1) Diabetic ketoacidosis Code(s): E13.10 - Other specified diabetes mellitus with ketoacidosis without coma Status: Acute (2) Acute pancreatitis Code(s): K85.90 - Acute pancreatitis without necrosis or infection, unspecified Status: Acute (3) Acute kidney injury Code(s): N17.9 - Acute kidney failure, unspecified Status: Acute (4) Severe sepsis Code(s): A41.9 - Sepsis, unspecified organism; R65.20 - Severe sepsis without septic shock Status: Acute (5) High anion gap metabolic acidosis Code(s): E87.2 - Acidosis Status: Acute (6) Hyperkalemia Code(s): E87.5 - Hyperkalemia Status: Acute (7) Hyponatremia Code(s): E87.1 - Hypo-osmolality and hyponatremia Status: Acute - Plan NEURO: -Axox3. Stable at this time. RESP: -Initial VBG ph 6.93, cO2 26, pO2 43, HCO3 5, base excess -24.5. -Acapella/EZ Pap ordered. -Follow repeat blood gas. Close monitoring. CV: History of hypertension -BP controlled, monitor BP trends. -Received 3 L bolus of normal saline in ED. Start sodium bicarbonate infusion. -Lactic acid elevated. Troponin negative. GI: -Nothing by mouth. -Prophylaxis, Pepcid. -Zofran available for nausea or vomiting. : Acute kidney failure Hyperkalemia Hyperphosphatemia Severe anion gap metabolic acidosis -Creat 3.10/GFR 21, K 8.2, phos 8.2, magnesium 2.9. -Carbon dioxide 4.8/Anion gap 33. -Monitor renal function closely. Aggressive fluid resuscitation as above. -Renal failure most likely secondary to severe dehydration from DKA. -If creatinine is not improving consult nephrology, follow BMP. Avoid nephrotoxins. -With correction of blood sugar on insulin infusion hyperkalemia should improve. -Monitor for arrhythmias, continue on telemetry. ID: Severe sepsis Suspect secondary to acute pancreatitis -Meets criteria with tachycardia, leukocytosis with left band shift 29.4, lactic acid 3.7. -UA negative. Chest x-ray insignificant. -Suspect secondary to acute pancreatitis with lipase 1114. Abdominal/pelvis CT ordered and pending. -Continue IVF. NPO. ENDO: Severe DKA Type 2 diabetes with noncompliance -Initial blood sugar 1237 on presentation. -Initiated on DKA protocol, was also given 6 units of IV regular insulin. -Aggressive fluid resuscitation for DKA protocol. PROPH: -Bilateral lower extremity SCDs. Heparin 5000 units sq q12h, Pepcid LINES: -Utilize peripheral IVs Code Status Full Discussed Condition with Dr. Harris and bedside RN Rosa Maria <Feliz Brown K - Last Filed: 11/17/17 17:23> History of Present Illness Primary Care Physician: No Primary Care Physician Inpatient Certification: I certify that the inpatient services were ordered in accordance with Medicare regulations governing the order. This includes certification that hospital inpatient services are reasonable and necessary and in the case of services not specified as inpatient-only under 42 CFR 419.22(n), that they are appropriately provided as inpatient services in accordance to with the 2-midnight benchmark under 43 CFR 412.3(e) [facility] - Medical History Medical History: Medical History (Last Updated 11/17/17 @ 07:43 by Charlene Porter) Acute kidney failure Cocaine abuse Diabetes Hypertension Respiratory failure Sepsis - Surgical History Surgical History: Surgical History (Last Updated 11/17/17 @ 09:58 by Tami Lassiter) No history of previous surgery - Family History Family History: Family History (Last Updated 11/17/17 @ 09:58 by Tami Lassiter) Father Cardiovascular disease Mother Breast cancer Medications and Allergies Active Medications: Active Medications Albuterol (Duoneb Neb (Prn)) 1 ampul NEB Q2HR NEB PRN PRN Reason: WHEEZING Chlorhexidine Gluconate (Chlorhexidine 2% Cloth) 3 pack TOPICAL DAILY@0400 FLAKO Stop: 11/23/17 03:59 Chlorhexidine Gluconate (Chlorhexidine 2% Cloth) 3 pack TOPICAL DAILY@0400 PRN PRN Reason: Extra cloth needed Stop: 11/23/17 03:59 Famotidine (Pepcid Pf Inj) 20 mg IV.PUSH Q12HR [facility] Last Admin: 11/17/17 12:03 Dose: 20 mg Heparin Sodium (Porcine) (Heparin Inj) 5,000 units SQ Q8H [facility] Last Admin: 11/17/17 12:02 Dose: 5,000 units Dextrose/Sodium Chloride (D5w/Normal Saline Inj) 1,000 mls @ 200 mls/hr IV.CONT .Q5H [facility] Last Admin: 11/17/17 14:12 Dose: Not Given Insulin Human Regular 100 unit (/ Sodium Chloride) 100 mls @ 7 mls/hr IV.CONT TITRATE PRN; Protocol PRN Reason: See protocol Last Admin: 11/17/17 07:55 Dose: 7 units/hr, 7 mls/hr Potassium Chloride (Kcl 20 Meq Premix Inj) 20 meq in 100 mls @ 100 mls/hr IV.SIG Q1H PRN PRN Reason: for K+ 4.5 to 5 Potassium Chloride (Kcl 20 Meq Premix Inj) 20 meq in 100 mls @ 100 mls/hr IV.SIG Q1H PRN PRN Reason: for K+ 3.5 to 4.4 Potassium Chloride (Kcl 20 Meq Premix Inj) 20 meq in 100 mls @ 50 mls/hr IV.SIG Q2H PRN PRN Reason: for K+ 3.5 to 4.4 Potassium Chloride (Kcl 20 Meq Premix Inj) 20 meq in 100 mls @ 50 mls/hr IV.SIG Q2H PRN PRN Reason: for Initial K+ ONLY < 3.5 Potassium Chloride (Kcl 40 Meq Premix Inj) 40 meq in 100 mls @ 100 mls/hr IV.SIG Q1H PRN PRN Reason: for Initial K+ ONLY < 3.5 Potassium Chloride (Kcl 20 Meq Premix Inj) 20 meq in 100 mls @ 50 mls/hr IV.SIG Q2H PRN PRN Reason: for Subsequent K+ < 3.5 Potassium Chloride (Kcl 40 Meq Premix Inj) 40 meq in 100 mls @ 50 mls/hr IV.SIG Q2H PRN PRN Reason: for Subsequent K+ < 3.5 Sodium Chloride (Ns Inj) 1,000 mls @ 250 mls/hr IV.CONT .Q4H [facility]LAKO Last Admin: 11/17/17 15:22 Dose: 250 mls/hr Sodium Phosphate 15 mmol/ (Sodium Chloride) 105 mls @ 25 mls/hr IV.SIG UNSCH PRN PRN Reason: for Phosphate Level < 1.0 Potassium Chloride (Kcl 20 Meq Premix Inj) 20 meq in 100 mls @ 50 mls/hr IV.SIG Q2H PRN PRN Reason: for K+ 4.5 to 5 Ceftriaxone Sodium 1,000 mg/ (Sodium Chloride) 100 mls @ 200 mls/hr IV.SIG Q24H FLAKO Azithromycin 500 mg/ Sodium (Chloride) 250 mls @ 250 mls/hr IV.SIG Q24H FLAKO Sodium Chloride (Ns Inj) 2,000 mls @ 0 mls/hr IV.SIG BOLUS ONE Stop: 11/17/17 17:19 Ondansetron HCl (Zofran Inj) 4 mg IV.PUSH Q6H PRN PRN Reason: NAUSEA OR VOMITING Sodium Bicarbonate (Sodium Bicarbonate 8.4% Inj) 100 meq IV.PUSH UNSCH PRN PRN Reason: for pH less than 6.9 Sodium Bicarbonate (Sodium Bicarbonate 8.4% Inj) 50 meq IV.PUSH UNSCH PRN PRN Reason: for pH 6.9 to 7.0 Last Admin: 11/17/17 08:19 Dose: 50 meq Sodium Chloride (Ns Flush) 2 ml IV.FLUSH PRN PRN PRN Reason: FLUSH AFTER USING IV ACCESS Sodium Chloride (Ns Flush) 2 ml IV.FLUSH BID [facility] Last Admin: 11/17/17 12:04 Dose: 2 ml Exam Vital signs: Vital Signs 11/17/17 06:23 11/17/17 07:10 11/17/17 07:40 Temperature Pulse Rate 106 H 102 H 110 H Respiratory Rate 24 22 Blood Pressure 111/54 L 99/44 L 140/68 Pulse Oximetry 97 100 98 11/17/17 08:20 11/17/17 08:55 11/17/17 10:00 Temperature Pulse Rate 118 H 108 H 94 H Respiratory Rate 28 H 26 H 21 Blood Pressure 133/77 117/78 107/70 Pulse Oximetry 99 97 96 11/17/17 10:57 11/17/17 11:00 11/17/17 12:00 Temperature 98.1 F Pulse Rate 96 H 86 Respiratory Rate 26 H 23 Blood Pressure 100/59 L 112/67 Pulse Oximetry 97 96 97 11/17/17 13:00 11/17/17 13:01 11/17/17 13:10 Temperature Pulse Rate 94 H 94 H 86 Respiratory Rate 23 25 H 21 Blood Pressure 95/51 L 102/57 L Pulse Oximetry 97 96 96 11/17/17 14:00 Temperature Pulse Rate 86 Respiratory Rate 21 Blood Pressure Pulse Oximetry 96 Intake & Output 11/16/17 11/17/17 11/17/17 18:59 06:59 18:59 Intake Total 1999 Output Total 2550 / 2550 Balance -550 / -550 Weight 72.575 kg 70 kg Intake: IV 1999 NS Inj 1,000 ML @ 250 mls/hr IV 1999 .CONT .Q4H [facility] Rx#:[id number] Output: Urine 2550 / 2550 Other: Weight On Admission 70 kg Results - Labs CBC & Chem 7: 11/17/17 06:45 11/17/17 12:30 Labs: Laboratory Results - last 24 hr 11/17/17 11/17/17 11/17/17 06:45 06:45 06:45 CBC w Diff Slide review pending WBC 29.4 H RBC 4.55 Hgb 14.3 Hct 48.2 MCV 105.9 H MCH 31.3 MCHC 29.6 L RDW 15.4 Plt Count 259 MPV 9.6 Neut % (Auto) 84.3 H Lymph % (Auto) 6.5 L [place] % (Auto) 8.9 H Eos % (Auto) 0.1 Baso % (Auto) 0.2 Neut # (Auto) 24.8 H Lymph # (Auto) 1.9 [place] # (Auto) 2.6 H Eos # (Auto) 0.0 Baso # (Auto) 0.1 WBC Differential Manual diff final Seg Neuts % (Manual) 58 Band Neuts % (Manual) 26 H Lymphocytes % (Manual) 4 L Monocytes % (Manual) 12 H Abs Neuts (Manual) 24.7 H Differential Comment . Platelet Estimate Normal Platelet Morphology Normal RBC Morphology Normal Puncture Site Patient Temperature VBG pH VBG pCO2 VBG pO2 VBG HCO3 VBG O2 Saturation VBG O2 Content VBG Base Excess VBG Carboxyhemoglobin VBG Methemoglobin Hemoglobin O2 Delivery Device Inspired O2 Critical Value Sodium 128 L Potassium 8.2 H* Chloride 90 L Carbon Dioxide 4.8 L Anion Gap 33 H BUN 47 H Creatinine 3.10 H Estimated GFR 21 L POC Glucose Random Glucose 1237 H* Lactic Acid Calcium 8.4 L Phosphorus Magnesium Total Bilirubin 0.6 AST 32 ALT 38 Alkaline Phosphatase 165 H Troponin I Total Protein 7.1 Albumin 3.4 Lipase 1114 H Beta-Hydroxybutyric Acd 13.75 H Ur Collection Type Urine Color Urine Clarity Urine pH Ur Specific [place] Urine Protein Urine Glucose (UA) Urine Ketones Urine Occult Blood Urine Nitrate Urine Bilirubin Urine Urobilinogen Ur Leukocyte Esterase Urine RBC Urine WBC Ur Squamous Epith Cells Amorphous Sediment Urine Collection Time Urine Opiates Screen Ur Barbiturates Screen Ur Amphetamines Screen U Benzodiazepines Scrn Urine Cocaine Screen U Cannabinoids Screen 11/17/17 11/17/17 11/17/17 06:45 06:45 07:31 CBC w Diff WBC RBC Hgb Hct MCV MCH MCHC RDW Plt Count MPV Neut % (Auto) Lymph % (Auto) [place] % (Auto) Eos % (Auto) Baso % (Auto) Neut # (Auto) Lymph # (Auto) [place] # (Auto) Eos # (Auto) Baso # (Auto) WBC Differential Seg Neuts % (Manual) Band Neuts % (Manual) Lymphocytes % (Manual) Monocytes % (Manual) Abs Neuts (Manual) Differential Comment Platelet Estimate Platelet Morphology RBC Morphology Puncture Site L.ac Patient Temperature 98.6 VBG pH 6.93 L* VBG pCO2 26 L VBG pO2 43 H VBG HCO3 5 L* VBG O2 Saturation 67 L VBG O2 Content 13.7 VBG Base Excess -24.5 L VBG Carboxyhemoglobin 1.1 VBG Methemoglobin 1.9 Hemoglobin 14.5 O2 Delivery Device Room air Inspired O2 21 Critical Value Yes Sodium Potassium Chloride Carbon Dioxide Anion Gap BUN Creatinine Estimated GFR POC Glucose Random Glucose Lactic Acid Calcium Phosphorus 8.2 H Magnesium 2.9 H Total Bilirubin AST ALT Alkaline Phosphatase Troponin I Less than 0.02 L Total Protein Albumin Lipase Beta-Hydroxybutyric Acd Ur Collection Type Urine Color Urine Clarity Urine pH Ur Specific [place] Urine Protein Urine Glucose (UA) Urine Ketones Urine Occult Blood Urine Nitrate Urine Bilirubin Urine Urobilinogen Ur Leukocyte Esterase Urine RBC Urine WBC Ur Squamous Epith Cells Amorphous Sediment Urine Collection Time Urine Opiates Screen Ur Barbiturates Screen Ur Amphetamines Screen U Benzodiazepines Scrn Urine Cocaine Screen U Cannabinoids Screen 11/17/17 11/17/17 11/17/17 08:00 08:00 08:55 CBC w Diff WBC RBC Hgb Hct MCV MCH MCHC RDW Plt Count MPV Neut % (Auto) Lymph % (Auto) [place] % (Auto) Eos % (Auto) Baso % (Auto) Neut # (Auto) Lymph # (Auto) [place] # (Auto) Eos # (Auto) Baso # (Auto) WBC Differential Seg Neuts % (Manual) Band Neuts % (Manual) Lymphocytes % (Manual) Monocytes % (Manual) Abs Neuts (Manual) Differential Comment Platelet Estimate Platelet Morphology RBC Morphology Puncture Site Patient Temperature VBG pH VBG pCO2 VBG pO2 VBG HCO3 VBG O2 Saturation VBG O2 Content VBG Base Excess VBG Carboxyhemoglobin VBG Methemoglobin Hemoglobin O2 Delivery Device Inspired O2 Critical Value Sodium Potassium Chloride Carbon Dioxide Anion Gap BUN Creatinine Estimated GFR POC Glucose Random Glucose Lactic Acid 3.7 H Calcium Phosphorus Magnesium Total Bilirubin AST ALT Alkaline Phosphatase Troponin I Total Protein Albumin Lipase Beta-Hydroxybutyric Acd Ur Collection Type Clean catch Urine Color Yellow Urine Clarity Clear Urine pH 5.5 Ur Specific [place] 1.010 Urine Protein Trace Urine Glucose (UA) 1000 or greater H Urine Ketones 40 H Urine Occult Blood Moderate H Urine Nitrate Negative Urine Bilirubin Negative Urine Urobilinogen 0.2 Ur Leukocyte Esterase Negative Urine RBC 0-3 Urine WBC 0-5 Ur Squamous Epith Cells 0-5 Amorphous Sediment Moderate H Urine Collection Time 800 Urine Opiates Screen Neg Ur Barbiturates Screen Neg Ur Amphetamines Screen Neg U Benzodiazepines Scrn Neg Urine Cocaine Screen Neg U Cannabinoids Screen Neg 11/17/17 11/17/17 11/17/17 08:55 08:55 09:30 CBC w Diff WBC RBC Hgb Hct MCV MCH MCHC RDW Plt Count MPV Neut % (Auto) Lymph % (Auto) [place] % (Auto) Eos % (Auto) Baso % (Auto) Neut # (Auto) Lymph # (Auto) [place] # (Auto) Eos # (Auto) Baso # (Auto) WBC Differential Seg Neuts % (Manual) Band Neuts % (Manual) Lymphocytes % (Manual) Monocytes % (Manual) Abs Neuts (Manual) Differential Comment Platelet Estimate Platelet Morphology RBC Morphology Puncture Site Patient Temperature VBG pH VBG pCO2 VBG pO2 VBG HCO3 VBG O2 Saturation VBG O2 Content VBG Base Excess VBG Carboxyhemoglobin VBG Methemoglobin Hemoglobin O2 Delivery Device Inspired O2 Critical Value Sodium Potassium Chloride Carbon Dioxide Anion Gap BUN Creatinine Estimated GFR POC Glucose Greater than 600 H* Greater than 600 H* Random Glucose 940 H* D Lactic Acid Calcium Phosphorus Magnesium Total Bilirubin AST ALT Alkaline Phosphatase Troponin I Total Protein Albumin Lipase Beta-Hydroxybutyric Acd Ur Collection Type Urine Color Urine Clarity Urine pH Ur Specific [place] Urine Protein Urine Glucose (UA) Urine Ketones Urine Occult Blood Urine Nitrate Urine Bilirubin Urine Urobilinogen Ur Leukocyte Esterase Urine RBC Urine WBC Ur Squamous Epith Cells Amorphous Sediment Urine Collection Time Urine Opiates Screen Ur Barbiturates Screen Ur Amphetamines Screen U Benzodiazepines Scrn Urine Cocaine Screen U Cannabinoids Screen 11/17/17 11/17/17 11/17/17 10:13 11:05 11:11 CBC w Diff WBC RBC Hgb Hct MCV MCH MCHC RDW Plt Count MPV Neut % (Auto) Lymph % (Auto) [place] % (Auto) Eos % (Auto) Baso % (Auto) Neut # (Auto) Lymph # (Auto) [place] # (Auto) Eos # (Auto) Baso # (Auto) WBC Differential Seg Neuts % (Manual) Band Neuts % (Manual) Lymphocytes % (Manual) Monocytes % (Manual) Abs Neuts (Manual) Differential Comment Platelet Estimate Platelet Morphology RBC Morphology Puncture Site Patient Temperature VBG pH VBG pCO2 VBG pO2 VBG HCO3 VBG O2 Saturation VBG O2 Content VBG Base Excess VBG Carboxyhemoglobin VBG Methemoglobin Hemoglobin O2 Delivery Device Inspired O2 Critical Value Sodium Potassium Chloride Carbon Dioxide Anion Gap BUN Creatinine Estimated GFR POC Glucose Greater than 600 H* Greater than 600 H* Random Glucose 654 H* D Lactic Acid Calcium Phosphorus Magnesium Total Bilirubin AST ALT Alkaline Phosphatase Troponin I Total Protein Albumin Lipase Beta-Hydroxybutyric Acd Ur Collection Type Urine Color Urine Clarity Urine pH Ur Specific [place] Urine Protein Urine Glucose (UA) Urine Ketones Urine Occult Blood Urine Nitrate Urine Bilirubin Urine Urobilinogen Ur Leukocyte Esterase Urine RBC Urine WBC Ur Squamous Epith Cells Amorphous Sediment Urine Collection Time Urine Opiates Screen Ur Barbiturates Screen Ur Amphetamines Screen U Benzodiazepines Scrn Urine Cocaine Screen U Cannabinoids Screen 11/17/17 11/17/17 11/17/17 12:29 12:30 12:30 CBC w Diff WBC RBC Hgb Hct MCV MCH MCHC RDW Plt Count MPV Neut % (Auto) Lymph % (Auto) [place] % (Auto) Eos % (Auto) Baso % (Auto) Neut # (Auto) Lymph # (Auto) [place] # (Auto) Eos # (Auto) Baso # (Auto) WBC Differential Seg Neuts % (Manual) Band Neuts % (Manual) Lymphocytes % (Manual) Monocytes % (Manual) Abs Neuts (Manual) Differential Comment Platelet Estimate Platelet Morphology RBC Morphology Puncture Site Patient Temperature VBG pH VBG pCO2 VBG pO2 VBG HCO3 VBG O2 Saturation VBG O2 Content VBG Base Excess VBG Carboxyhemoglobin VBG Methemoglobin Hemoglobin O2 Delivery Device Inspired O2 Critical Value Sodium 145 D Potassium 4.6 D Chloride 111 H D Carbon Dioxide 16.4 L D Anion Gap 18 H BUN 40 H Creatinine 2.30 H Estimated GFR 30 L POC Glucose 530 H* Random Glucose 535 H* D Lactic Acid 3.2 H Calcium 8.3 L Phosphorus 1.6 L D Magnesium 2.6 H Total Bilirubin AST ALT Alkaline Phosphatase Troponin I Total Protein Albumin Lipase Beta-Hydroxybutyric Acd Ur Collection Type Urine Color Urine Clarity Urine pH Ur Specific [place] Urine Protein Urine Glucose (UA) Urine Ketones Urine Occult Blood Urine Nitrate Urine Bilirubin Urine Urobilinogen Ur Leukocyte Esterase Urine RBC Urine WBC Ur Squamous Epith Cells Amorphous Sediment Urine Collection Time Urine Opiates Screen Ur Barbiturates Screen Ur Amphetamines Screen U Benzodiazepines Scrn Urine Cocaine Screen U Cannabinoids Screen 11/17/17 11/17/17 11/17/17 13:27 14:26 15:33 CBC w Diff WBC RBC Hgb Hct MCV MCH MCHC RDW Plt Count MPV Neut % (Auto) Lymph % (Auto) [place] % (Auto) Eos % (Auto) Baso % (Auto) Neut # (Auto) Lymph # (Auto) [place] # (Auto) Eos # (Auto) Baso # (Auto) WBC Differential Seg Neuts % (Manual) Band Neuts % (Manual) Lymphocytes % (Manual) Monocytes % (Manual) Abs Neuts (Manual) Differential Comment Platelet Estimate Platelet Morphology RBC Morphology Puncture Site Patient Temperature VBG pH VBG pCO2 VBG pO2 VBG HCO3 VBG O2 Saturation VBG O2 Content VBG Base Excess VBG Carboxyhemoglobin VBG Methemoglobin Hemoglobin O2 Delivery Device Inspired O2 Critical Value Sodium Potassium Chloride Carbon Dioxide Anion Gap BUN Creatinine Estimated GFR POC Glucose 366 H 320 H 343 H Random Glucose Lactic Acid Calcium Phosphorus Magnesium Total Bilirubin AST ALT Alkaline Phosphatase Troponin I Total Protein Albumin Lipase Beta-Hydroxybutyric Acd Ur Collection Type Urine Color Urine Clarity Urine pH Ur Specific [place] Urine Protein Urine Glucose (UA) Urine Ketones Urine Occult Blood Urine Nitrate Urine Bilirubin Urine Urobilinogen Ur Leukocyte Esterase Urine RBC Urine WBC Ur Squamous Epith Cells Amorphous Sediment Urine Collection Time Urine Opiates Screen Ur Barbiturates Screen Ur Amphetamines Screen U Benzodiazepines Scrn Urine Cocaine Screen U Cannabinoids Screen 11/17/17 16:36 CBC w Diff WBC RBC Hgb Hct MCV MCH MCHC RDW Plt Count MPV Neut % (Auto) Lymph % (Auto) [place] % (Auto) Eos % (Auto) Baso % (Auto) Neut # (Auto) Lymph # (Auto) [place] # (Auto) Eos # (Auto) Baso # (Auto) WBC Differential Seg Neuts % (Manual) Band Neuts % (Manual) Lymphocytes % (Manual) Monocytes % (Manual) Abs Neuts (Manual) Differential Comment Platelet Estimate Platelet Morphology RBC Morphology Puncture Site Patient Temperature VBG pH VBG pCO2 VBG pO2 VBG HCO3 VBG O2 Saturation VBG O2 Content VBG Base Excess VBG Carboxyhemoglobin VBG Methemoglobin Hemoglobin O2 Delivery Device Inspired O2 Critical Value Sodium Potassium Chloride Carbon Dioxide Anion Gap BUN Creatinine Estimated GFR POC Glucose 254 H Random Glucose Lactic Acid Calcium Phosphorus Magnesium Total Bilirubin AST ALT Alkaline Phosphatase Troponin I Total Protein Albumin Lipase Beta-Hydroxybutyric Acd Ur Collection Type Urine Color Urine Clarity Urine pH Ur Specific [place] Urine Protein Urine Glucose (UA) Urine Ketones Urine Occult Blood Urine Nitrate Urine Bilirubin Urine Urobilinogen Ur Leukocyte Esterase Urine RBC Urine WBC Ur Squamous Epith Cells Amorphous Sediment Urine Collection Time Urine Opiates Screen Ur Barbiturates Screen Ur Amphetamines Screen U Benzodiazepines Scrn Urine Cocaine Screen U Cannabinoids Screen - Imaging Impressions Chest X-Ray 11/17/17 06:44 CONCLUSION: No acute cardiopulmonary disease. Abdomen/Pelvis CT 11/17/17 08:35 CONCLUSION: Bilateral lower lobe pneumonia worse on the left and there is also a lipoma in the patient's right lower chest posteriorly in the soft tissues. Caprini VTE Risk Assessment Caprini Risk Assessment Model: Point Value = 1 Point Value = 2 Point Value = 3 Point Value = 5 Age 41-60 Minor surgery BMI > 25 kg/m2 Swollen legs Varicose veins or History of unexplained or recurrent spontaneous Oral contraceptives or hormone replacement Sepsis (< 1 month) Serious lung disease, including pneumonia (< 1 month) Abnormal pulmonary function Acute myocardial infarction Congestive heart failure (< 1 month) History of inflammatory bowel disease Medical patient at bed rest Age 61-74 Arthroscopic surgery Major open surgery (> 45 min) Laparoscopic surgery (> 45 min) Malignancy Confined to bed (> 72 hours) Immobilizing plaster cast Central venous access Age >= 75 History of VTE Family history of VTE Factor V Leiden Prothrombin [id number] Lupus anticoagulant Anticardiolipin antibodies Elevated serum homocysteine Heparin-induced thrombocytopenia Other congenital or acquired thrombophilia Stroke (< 1 month) Elective arthroplasty Hip, pelvis, or leg fracture Acute spinal cord injury (< 1 month) Prophylaxis Regimen: Total Risk Factor Score Risk Level Prophylaxis Regimen 0-1 Low Early ambulation 2 Moderate Order ONE of the following: *Sequential Compression Device (SCD) *Heparin 5000 units SQ BID 3-4 Higher Order ONE of the following medications: *Heparin 5000 units SQ TID *Enoxaparin/Lovenox 40 mg SQ daily (WT < 150 kg, CrCl > 30 mL/min) *Enoxaparin/Lovenox 30 mg SQ daily (WT < 150 kg, CrCl > 10-29 mL/min) *Enoxaparin/Lovenox 30 mg SQ BID (WT < 150 kg, CrCl > 30 mL/min) AND/OR *Sequential Compression Device (SCD) 5 or more Highest Order ONE of the following medications: *Heparin 5000 units SQ TID (Preferred with Epidurals) *Enoxaparin/Lovenox 40 mg SQ daily (WT < 150 kg, CrCl > 30 mL/min) *Enoxaparin/Lovenox 30 mg SQ daily (WT < 150 kg, CrCl > 10-29 mL/min) *Enoxaparin/Lovenox 30 mg SQ BID (WT < 150 kg, CrCl > 30 mL/min) AND *Sequential Compression Device (SCD) Assessment and Plan - Attending Attestation I have personally seen and examined the patient and verified the history. I agree with Tami Lassiter NP's history, physical exam and assessment and plan. Continue DKA protocol last blood sugar was 250. Borderline hypotensive due to dehydration give additional 2 L normal saline bolus. Follow-up on cultures continue Rocephin and azithromycin. <Tami Lassiter - Last Filed: 11/17/17 11:40> (1) Diabetic ketoacidosis Qualifiers: Diabetes mellitus type: type 2 Diabetes mellitus complication detail: without coma Qualified Code(s): E11.10 - Type 2 diabetes mellitus with ketoacidosis without coma
[2017-11-17] MEDS: Sod Chloride 0.9% Inj 1,000 ML IV.CONT SCH ×4 (11:22→21:04)
[2017-11-17] MEDS: Heparin - SQ 10,000 UNITS/ML Vial SQ SCH ×2 (12:02→17:31)
[2017-11-17] MEDS: Famotidine PF Inj 20 MG/2 ML Vial IV.PUSH SCH ×2 (12:03→21:04)
[2017-11-17 12:56] LABS: Calcium 8.3 mg/dL (8.5-10.1); Carbon Dioxide 16.4 meq/L (21.0-32.0); Magnesium 2.6 mg/dL (1.5-2.5); Phosphorus 1.6 mg/dL (2.5-4.9); Potassium 4.6 meq/L (3.5-5.1)
--- NOTE | 2017-11-17 13:27 | CT ---
EXAM DATE: 11/17/2017 1:13 PM EDT AGE/SEX: 52 years / Male INDICATIONS: Abdominal pain, nausea, vomiting, diarrhea CLINICAL DATA: This is the patient's initial encounter. Patient reports that signs and symptoms have been present for 1 day and indicates a pain score of 5/10. MEDICAL/SURGICAL HISTORY: Diabetes. Renal failure, acute. Hypertension. Hepatitis C None. RADIATION DOSE: 8.40 CTDI (mGy) COMPARISON: No prior exams available for comparison. TECHNIQUE: Multiple contiguous axial images were obtained through the abdomen. Images were obtained using multiple row detector helical technique. Using automated exposure control and adjustment of the mA and/or kV according to patient size, radiation dose was kept as low as reasonably achievable to o btain optimal diagnostic quality images. DICOM format image data is available electronically for rev iew and comparison. FINDINGS: Abdomen CT: The liver, spleen, pancreas, kidneys, adrenals are unremarkable. There is no evidence for any appreci able pathological adenopathy, free fluid, or bowel obstruction. There is extensive airspace process left lower lobe and to a slight degree right lower lobe suspicious for pneumonia and inflammatory pro cess. Approximate 5.2 cm lipoma is present in the soft tissues of the patient's right lower chest pos teriorly. Small hiatal hernia is seen. There are atherosclerotic calcifications involving the aorta a nd iliac arteries chronic in nature. Pelvic CT: There is no evidence for mass, abscess formation, or any significant adenopathy within the pelvis. T here is moderate amount of stool in the colon. There are scattered diverticuli within the colon main ly the sigmoid colon without signs of diverticulitis for technique. CONCLUSION: Bilateral lower lobe pneumonia worse on the left and there is also a lipoma in the patien t's right lower chest posteriorly in the soft tissues. Electronically signed by: Vidal Masters MD 11/17/2017 1:25 PM EDT
[2017-11-17] MEDS: Dextrose 5%/NaCl 0.9% Inj 1,000 ML IV.CONT SCH ×2 (14:12→19:08)
--- NOTE | 2017-11-17 15:18 | ECG ---
Date Performed: 11/17/2017 Time Performed: 07:29:21 PTAGE: 52 years EKG: Sinus rhythm WITH SINUS ARRHYTHMIA BORDERLINE LEFT AXIS DEVIATION Since previous tracing, no significant change n oted BORDERLINE ECG PREVIOUS TRACING : 06/11/2016 22.41 DOCTOR: Stoney Card Interpretating Date/Time 11/17/2017 15:17:40
[2017-11-17] MEDS ORDERED: Sod Chloride 0.9% Inj 2,000 ML IV.SIG ONE (17:18)
[2017-11-17] MEDS: Azithromycin Inj 500 MG in Sodium Chlor 0.9% Inj 250 ML IV.SIG SCH (17:58)
[2017-11-17 20:22] LABS: Calcium 7.3 mg/dL (8.5-10.1); Carbon Dioxide 23.2 meq/L (21.0-32.0); Magnesium 2.2 mg/dL (1.5-2.5); Phosphorus 1.3 mg/dL (2.5-4.9); Potassium 3.9 meq/L (3.5-5.1)
[2017-11-17 21:17] LABS: Total Protein 5.4 g/dL (6.4-8.2)
[2017-11-17] MEDS ORDERED: DC Insulin drip 2 hrs post basal insulin dose OTHER ONE (21:25)
[2017-11-17] MEDS ORDERED: Dextrose 50% in Water 50 ML Vial IV.PUSH PRN (21:25)
[2017-11-17] MEDS ORDERED: DC previous DKA orders (HMC 1917) OTHER ONE (21:25)
[2017-11-17] MEDS ORDERED: Insulin Detemir Inj 1,000 UNIT/10 ML Vial SQ ONE (21:45)
[2017-11-18] MEDS: Heparin - SQ 10,000 UNITS/ML Vial SQ SCH ×3 (02:05→17:22)
[2017-11-18] MEDS ORDERED: Chlorhexidine Gluconate 2% 1 Pack (2 Cloths) TOPICAL PRN ×2 (04:00)
[2017-11-18] MEDS ORDERED: Chlorhexidine Gluconate 2% 1 Pack (2 Cloths) TOPICAL SCH (04:00)
[2017-11-18] MEDS: Chlorhexidine Gluconate 2% 1 Pack (2 Cloths) TOPICAL SCH (04:02)
[2017-11-18 06:31] LABS: Potassium 3.6 meq/L (3.5-5.1)
[2017-11-18 06:43] LABS: Beta Hydroxybutyric Acid 0.75 mmol/L (0.00-0.39); Calcium 6.9 mg/dL (8.5-10.1); Carbon Dioxide 23.5 meq/L (21.0-32.0); Magnesium 1.9 mg/dL (1.5-2.5); Phosphorus 1.1 mg/dL (2.5-4.9)
[2017-11-18 06:49] LABS: Hematocrit 33.4 % (39.0-51.0); Mean Corpuscular HGB Conc 34.1 % (32.0-36.0); Mean Corpuscular Hemoglobin 31.8 pg (27.0-34.0); Mean Corpuscular Volume 93.2 fL (80.0-100.0); Mean Platelet Volume 9.2 fL (7.0-11.0); Platelet Count 129 th/mm3 (150-450); Red Blood Count 3.59 mil/mm3 (4.50-5.90); Red Cell Distribution Width 12.8 % (11.6-17.2); White Blood Count 13.2 th/mm3 (4.0-11.0)
[2017-11-18 07:21] LABS: Hemoglobin 11.4 gm/dL (13.0-17.0)
--- NOTE | 2017-11-18 08:24 | P.PNIM ---
Subjective Interval history: Patient seen and evaluated today in follow-up for DKA which is greatly improved. Initial blood sugars 1237 and anion gap was 33. Patient reports his last hemoglobin A1c 11 but that was 2 years ago. Our records here show hemoglobin A1c greater than 12. Patient still hypotensive today. No new complaints although he would like to go home. Appears to be improving with his electrolyte profile. Pneumonia seen on CT is apparently responding to azithromycin and Rocephin. Patient appears quite volume depleted on exam Physical Exam Vital signs: Vital Signs 11/17/17 08:20 11/17/17 08:55 11/17/17 10:00 Temperature Pulse Rate 118 H 108 H 94 H Respiratory Rate 28 H 26 H 21 Blood Pressure 133/77 117/78 107/70 Pulse Oximetry 99 97 96 11/17/17 10:57 11/17/17 11:00 11/17/17 12:00 Temperature 98.1 F Pulse Rate 96 H 86 Respiratory Rate 26 H 23 Blood Pressure 100/59 L 112/67 Pulse Oximetry 97 96 97 11/17/17 13:00 11/17/17 13:01 11/17/17 13:10 Temperature Pulse Rate 94 H 94 H 86 Respiratory Rate 23 25 H 21 Blood Pressure 95/51 L 102/57 L Pulse Oximetry 97 96 96 11/17/17 14:00 11/17/17 15:00 11/17/17 16:00 Temperature Pulse Rate 86 84 82 Respiratory Rate 21 20 19 Blood Pressure 103/62 94/52 L Pulse Oximetry 96 98 97 11/17/17 17:00 11/17/17 19:00 11/17/17 20:00 Temperature 98.4 F Pulse Rate 82 92 H 88 Respiratory Rate 20 20 18 Blood Pressure 85/51 L 104/65 82/52 L Pulse Oximetry 97 98 96 11/17/17 21:00 11/17/17 22:00 11/17/17 23:00 Temperature Pulse Rate 85 94 H 80 Respiratory Rate 20 20 22 Blood Pressure 91/47 L 99/60 L 94/56 L Pulse Oximetry 94 L 90 L 91 L 11/18/17 00:00 11/18/17 01:00 11/18/17 02:00 Temperature 99.2 F Pulse Rate 86 78 88 Respiratory Rate 17 20 24 Blood Pressure 91/51 L 98/54 L 103/52 L Pulse Oximetry 91 L 91 L 11/18/17 03:38 11/18/17 05:00 11/18/17 05:42 Temperature Pulse Rate 74 69 Respiratory Rate 23 20 Blood Pressure 78/48 L 94/60 L Pulse Oximetry 94 L 11/18/17 06:22 Temperature Pulse Rate Respiratory Rate Blood Pressure 102/67 Pulse Oximetry Intake & Output 11/17/17 11/18/17 11/18/17 18:59 06:59 18:59 Intake Total 1999 3050 / 3050 Output Total 2550 / 2550 700 / 700 Balance -550 / -550 2350 / 2350 Weight 70 kg 74.5 kg Intake: IV 1999 250 / 250 NS Inj 1,000 ML @ 250 mls/hr IV 1999 .CONT .Q4H [facility] Rx#:[id number] Azithromycin Inj 500 MG In NS 250 / 250 Inj 250 ML @ 250 mls/hr IV.SIG Q24H [facility] Rx#:[id number] Rocephin Inj 1,000 MG In NS Inj 0 / 0 100 ML @ 200 mls/hr IV.SIG Q24H [facility] Rx#:[id number] Oral 2800 / 2800 Output: Urine 2550 / 2550 700 / 700 Other: # Voids 3 # Incontinent Voids 1 Weight On Admission 70 kg Narrative: GENERAL: Patient calm resting and a little weak today SKIN: Warm and dry. No rashes or ecchymotic injuries EYES: Pupils equal and round. No scleral icterus. No injection or drainage. ENT: External ear exam normal. No acute nasal bleeding or discharge. Dry mucous membranes CARDIOVASCULAR: Regular rate and rhythm. No murmurs gallops or rubs appreciated RESPIRATORY: Good air flow and effort without accessory muscle use. Clear to auscultation. Breath sounds equal bilaterally. GASTROINTESTINAL: Abdomen soft, non-tender, nondistended. Hepatic and splenic margins not palpable. MUSCULOSKELETAL: Extremities without clubbing, cyanosis, or edema. No obvious deformities. NEUROLOGICAL: Awake and alert. No obvious cranial nerve deficits. Motor grossly within normal limits. Five out of 5 muscle strength in the arms and legs. Normal speech. Results - Labs CBC & Chem 7: 11/18/17 05:59 11/18/17 05:59 Laboratory Results - last 24 hr 11/17/17 11/17/17 11/17/17 08:00 08:00 08:55 WBC RBC Hgb Hct MCV MCH MCHC RDW Plt Count MPV Sodium Potassium Chloride Carbon Dioxide Anion Gap BUN Creatinine Estimated GFR POC Glucose Random Glucose Lactic Acid 3.7 H Calcium Prot Corrected Calcium Phosphorus Magnesium Total Protein Lipase Beta-Hydroxybutyric Acd Ur Collection Type Clean catch Urine Color Yellow Urine Clarity Clear Urine pH 5.5 Ur Specific [place] 1.010 Urine Protein Trace Urine Glucose (UA) 1000 or greater H Urine Ketones 40 H Urine Occult Blood Moderate H Urine Nitrate Negative Urine Bilirubin Negative Urine Urobilinogen 0.2 Ur Leukocyte Esterase Negative Urine RBC 0-3 Urine WBC 0-5 Ur Squamous Epith Cells 0-5 Amorphous Sediment Moderate H Urine Collection Time 800 Nasal Screen MRSA (PCR) Urine Opiates Screen Neg Ur Barbiturates Screen Neg Ur Amphetamines Screen Neg U Benzodiazepines Scrn Neg Urine Cocaine Screen Neg U Cannabinoids Screen Neg 11/17/17 11/17/17 11/17/17 08:55 08:55 09:30 WBC RBC Hgb Hct MCV MCH MCHC RDW Plt Count MPV Sodium Potassium Chloride Carbon Dioxide Anion Gap BUN Creatinine Estimated GFR POC Glucose Greater than 600 H* Greater than 600 H* Random Glucose 940 H* D Lactic Acid Calcium Prot Corrected Calcium Phosphorus Magnesium Total Protein Lipase Beta-Hydroxybutyric Acd Ur Collection Type Urine Color Urine Clarity Urine pH Ur Specific [place] Urine Protein Urine Glucose (UA) Urine Ketones Urine Occult Blood Urine Nitrate Urine Bilirubin Urine Urobilinogen Ur Leukocyte Esterase Urine RBC Urine WBC Ur Squamous Epith Cells Amorphous Sediment Urine Collection Time Nasal Screen MRSA (PCR) Urine Opiates Screen Ur Barbiturates Screen Ur Amphetamines Screen U Benzodiazepines Scrn Urine Cocaine Screen U Cannabinoids Screen 11/17/17 11/17/17 11/17/17 09:30 10:13 11:05 WBC RBC Hgb Hct MCV MCH MCHC RDW Plt Count MPV Sodium Potassium Chloride Carbon Dioxide Anion Gap BUN Creatinine Estimated GFR POC Glucose Greater than 600 H* Random Glucose 654 H* D Lactic Acid Calcium Prot Corrected Calcium Phosphorus Magnesium Total Protein Lipase Beta-Hydroxybutyric Acd Ur Collection Type Urine Color Urine Clarity Urine pH Ur Specific [place] Urine Protein Urine Glucose (UA) Urine Ketones Urine Occult Blood Urine Nitrate Urine Bilirubin Urine Urobilinogen Ur Leukocyte Esterase Urine RBC Urine WBC Ur Squamous Epith Cells Amorphous Sediment Urine Collection Time Nasal Screen MRSA (PCR) Mrsa detected Urine Opiates Screen Ur Barbiturates Screen Ur Amphetamines Screen U Benzodiazepines Scrn Urine Cocaine Screen U Cannabinoids Screen 11/17/17 11/17/17 11/17/17 11:11 12:29 12:30 WBC RBC Hgb Hct MCV MCH MCHC RDW Plt Count MPV Sodium 145 D Potassium 4.6 D Chloride 111 H D Carbon Dioxide 16.4 L D Anion Gap 18 H BUN 40 H Creatinine 2.30 H Estimated GFR 30 L POC Glucose Greater than 600 H* 530 H* Random Glucose 535 H* D Lactic Acid Calcium 8.3 L Prot Corrected Calcium Phosphorus 1.6 L D Magnesium 2.6 H Total Protein Lipase Beta-Hydroxybutyric Acd Ur Collection Type Urine Color Urine Clarity Urine pH Ur Specific [place] Urine Protein Urine Glucose (UA) Urine Ketones Urine Occult Blood Urine Nitrate Urine Bilirubin Urine Urobilinogen Ur Leukocyte Esterase Urine RBC Urine WBC Ur Squamous Epith Cells Amorphous Sediment Urine Collection Time Nasal Screen MRSA (PCR) Urine Opiates Screen Ur Barbiturates Screen Ur Amphetamines Screen U Benzodiazepines Scrn Urine Cocaine Screen U Cannabinoids Screen 11/17/17 11/17/17 11/17/17 12:30 13:27 14:26 WBC RBC Hgb Hct MCV MCH MCHC RDW Plt Count MPV Sodium Potassium Chloride Carbon Dioxide Anion Gap BUN Creatinine Estimated GFR POC Glucose 366 H 320 H Random Glucose Lactic Acid 3.2 H Calcium Prot Corrected Calcium Phosphorus Magnesium Total Protein Lipase Beta-Hydroxybutyric Acd Ur Collection Type Urine Color Urine Clarity Urine pH Ur Specific [place] Urine Protein Urine Glucose (UA) Urine Ketones Urine Occult Blood Urine Nitrate Urine Bilirubin Urine Urobilinogen Ur Leukocyte Esterase Urine RBC Urine WBC Ur Squamous Epith Cells Amorphous Sediment Urine Collection Time Nasal Screen MRSA (PCR) Urine Opiates Screen Ur Barbiturates Screen Ur Amphetamines Screen U Benzodiazepines Scrn Urine Cocaine Screen U Cannabinoids Screen 11/17/17 11/17/17 11/17/17 15:33 16:36 17:40 WBC RBC Hgb Hct MCV MCH MCHC RDW Plt Count MPV Sodium Potassium Chloride Carbon Dioxide Anion Gap BUN Creatinine Estimated GFR POC Glucose 343 H 254 H 173 H Random Glucose Lactic Acid Calcium Prot Corrected Calcium Phosphorus Magnesium Total Protein Lipase Beta-Hydroxybutyric Acd Ur Collection Type Urine Color Urine Clarity Urine pH Ur Specific [place] Urine Protein Urine Glucose (UA) Urine Ketones Urine Occult Blood Urine Nitrate Urine Bilirubin Urine Urobilinogen Ur Leukocyte Esterase Urine RBC Urine WBC Ur Squamous Epith Cells Amorphous Sediment Urine Collection Time Nasal Screen MRSA (PCR) Urine Opiates Screen Ur Barbiturates Screen Ur Amphetamines Screen U Benzodiazepines Scrn Urine Cocaine Screen U Cannabinoids Screen 11/17/17 11/17/17 11/17/17 18:30 19:10 19:10 WBC RBC Hgb Hct MCV MCH MCHC RDW Plt Count MPV Sodium 153 H Potassium 3.9 Chloride 122 H D Carbon Dioxide 23.2 Anion Gap 8 BUN 26 H Creatinine 1.60 H Estimated GFR 45 L POC Glucose 170 H Random Glucose 173 H D Lactic Acid Calcium 7.3 L* D Prot Corrected Calcium 8.2 L Phosphorus 1.3 L Magnesium 2.2 Total Protein 5.4 L D Lipase Beta-Hydroxybutyric Acd 1.10 H D Ur Collection Type Urine Color Urine Clarity Urine pH Ur Specific [place] Urine Protein Urine Glucose (UA) Urine Ketones Urine Occult Blood Urine Nitrate Urine Bilirubin Urine Urobilinogen Ur Leukocyte Esterase Urine RBC Urine WBC Ur Squamous Epith Cells Amorphous Sediment Urine Collection Time Nasal Screen MRSA (PCR) Urine Opiates Screen Ur Barbiturates Screen Ur Amphetamines Screen U Benzodiazepines Scrn Urine Cocaine Screen U Cannabinoids Screen 11/17/17 11/17/17 11/17/17 19:10 19:37 20:07 WBC RBC Hgb Hct MCV MCH MCHC RDW Plt Count MPV Sodium Potassium Chloride Carbon Dioxide Anion Gap BUN Creatinine Estimated GFR POC Glucose 138 H 145 H 155 H Random Glucose Lactic Acid Calcium Prot Corrected Calcium Phosphorus Magnesium Total Protein Lipase Beta-Hydroxybutyric Acd Ur Collection Type Urine Color Urine Clarity Urine pH Ur Specific [place] Urine Protein Urine Glucose (UA) Urine Ketones Urine Occult Blood Urine Nitrate Urine Bilirubin Urine Urobilinogen Ur Leukocyte Esterase Urine RBC Urine WBC Ur Squamous Epith Cells Amorphous Sediment Urine Collection Time Nasal Screen MRSA (PCR) Urine Opiates Screen Ur Barbiturates Screen Ur Amphetamines Screen U Benzodiazepines Scrn Urine Cocaine Screen U Cannabinoids Screen 11/17/17 11/17/17 11/18/17 20:55 21:59 03:15 WBC RBC Hgb Hct MCV MCH MCHC RDW Plt Count MPV Sodium Potassium Chloride Carbon Dioxide Anion Gap BUN Creatinine Estimated GFR POC Glucose 157 H 158 H 138 H Random Glucose Lactic Acid Calcium Prot Corrected Calcium Phosphorus Magnesium Total Protein Lipase Beta-Hydroxybutyric Acd Ur Collection Type Urine Color Urine Clarity Urine pH Ur Specific [place] Urine Protein Urine Glucose (UA) Urine Ketones Urine Occult Blood Urine Nitrate Urine Bilirubin Urine Urobilinogen Ur Leukocyte Esterase Urine RBC Urine WBC Ur Squamous Epith Cells Amorphous Sediment Urine Collection Time Nasal Screen MRSA (PCR) Urine Opiates Screen Ur Barbiturates Screen Ur Amphetamines Screen U Benzodiazepines Scrn Urine Cocaine Screen U Cannabinoids Screen 11/18/17 11/18/17 11/18/17 05:59 05:59 07:54 WBC 13.2 H D RBC 3.59 L Hgb 11.4 L D Hct 33.4 L MCV 93.2 D MCH 31.8 MCHC 34.1 RDW 12.8 D Plt Count 129 L D MPV 9.2 Sodium 154 H Potassium 3.6 Chloride 122 H Carbon Dioxide 23.5 Anion Gap 9 BUN 17 Creatinine 1.20 Estimated GFR 63 L POC Glucose 158 H Random Glucose 151 H Lactic Acid Calcium 6.9 L* Prot Corrected Calcium 8.0 L Phosphorus 1.1 L Magnesium 1.9 Total Protein 5.0 L Lipase 185 Beta-Hydroxybutyric Acd 0.75 H Ur Collection Type Urine Color Urine Clarity Urine pH Ur Specific [place] Urine Protein Urine Glucose (UA) Urine Ketones Urine Occult Blood Urine Nitrate Urine Bilirubin Urine Urobilinogen Ur Leukocyte Esterase Urine RBC Urine WBC Ur Squamous Epith Cells Amorphous Sediment Urine Collection Time Nasal Screen MRSA (PCR) Urine Opiates Screen Ur Barbiturates Screen Ur Amphetamines Screen U Benzodiazepines Scrn Urine Cocaine Screen U Cannabinoids Screen - Imaging Impressions Abdomen/Pelvis CT 11/17/17 08:35 CONCLUSION: Bilateral lower lobe pneumonia worse on the left and there is also a lipoma in the patient's right lower chest posteriorly in the soft tissues. Assessment and Plan - Assessment (1) Diabetic ketoacidosis Code(s): E13.10 - Other specified diabetes mellitus with ketoacidosis without coma Status: Acute Plan: Appears to be resolved after IV insulin and IV fluids, continue with ADA diet Patient education on hemoglobin A1c is pending. Treat pneumonia (2) Acute pancreatitis Code(s): K85.90 - Acute pancreatitis without necrosis or infection, unspecified Status: Acute Plan: Resolved, advance diet (3) Acute kidney injury Code(s): N17.9 - Acute kidney failure, unspecified Status: Acute Plan: Resolved after care for aggressive hydration Continue IV fluids to correct for hypernatremia (4) Severe sepsis Code(s): A41.9 - Sepsis, unspecified organism; R65.20 - Severe sepsis without septic shock Status: Acute Plan: Leukocytosis improved Patient still hypotensive Continue Rocephin and azithromycin follow-up blood cultures (5) High anion gap metabolic acidosis Code(s): E87.2 - Acidosis Status: Acute Plan: Secondary to sepsis and pneumonia Improved (6) Hyperkalemia Code(s): E87.5 - Hyperkalemia Status: Acute Plan: Appears resolved at this time (7) Hyponatremia Code(s): E87.1 - Hypo-osmolality and hyponatremia Status: Acute Plan: Patient now hypernatremic, will add half-normal saline (8) MRSA nasal colonization Code(s): Z22.322 - Carrier or suspected carrier of Methicillin resistant Staphylococcus aureus Status: Acute Plan: We will add Bactroban twice daily - Plan Discharge Planning: Likely tomorrow pending improvement in blood pressure, on oral antibiotic (1) Diabetic ketoacidosis Qualifiers: Diabetes mellitus type: type 2 Diabetes mellitus complication detail: without coma Qualified Code(s): E11.10 - Type 2 diabetes mellitus with ketoacidosis without coma
[2017-11-18] MEDS ORDERED: Insulin Detemir Inj 1,000 UNIT/10 ML Vial SQ SCH (09:00)
[2017-11-18] MEDS: Insulin NovoLOG Aspart Correctional Sugar Inj SQ SCH ×4 (09:00→20:50)
[2017-11-18] MEDS: Calcium Carbonate 500 MG Tablet PO SCH ×2 (09:01→20:16)
[2017-11-18] MEDS: Sodium Chloride 0.45 % Inj 1,000 ML IV.CONT SCH ×2 (09:01→17:22)
[2017-11-18] MEDS: Famotidine 20 MG Tablet PO SCH ×2 (09:01→20:15)
[2017-11-18] MEDS: Mupirocin 2% Nasal Oint Topical Syringe EACH NARE SCH ×2 (09:01→20:16)
[2017-11-18] MEDS: Insulin Detemir Inj 1,000 UNIT/10 ML Vial SQ SCH ×2 (09:02→20:34)
[2017-11-18] MEDS: Azithromycin Inj 500 MG in Sodium Chlor 0.9% Inj 250 ML IV.SIG SCH (17:23)
[2017-11-19] MEDS: Sodium Chloride 0.45 % Inj 1,000 ML IV.CONT SCH (01:19)
[2017-11-19] MEDS: Chlorhexidine Gluconate 2% 1 Pack (2 Cloths) TOPICAL SCH (03:45)
[2017-11-19] MEDS: Heparin - SQ 10,000 UNITS/ML Vial SQ SCH (03:45)
[2017-11-19 04:40] LABS: Hematocrit 33.8 % (39.0-51.0); Hemoglobin 11.4 gm/dL (13.0-17.0); Mean Corpuscular HGB Conc 33.9 % (32.0-36.0); Mean Corpuscular Hemoglobin 31.5 pg (27.0-34.0); Mean Corpuscular Volume 93.2 fL (80.0-100.0); Mean Platelet Volume 7.9 fL (7.0-11.0); Platelet Count 126 th/mm3 (150-450); Red Blood Count 3.63 mil/mm3 (4.50-5.90); Red Cell Distribution Width 12.8 % (11.6-17.2); White Blood Count 9.7 th/mm3 (4.0-11.0)
[2017-11-19 04:51] LABS: Anion Gap 7 meq/L (5-15); Blood Urea Nitrogen 10 mg/dL (7-18); Calcium 7.4 mg/dL (8.5-10.1); Carbon Dioxide 24.8 meq/L (21.0-32.0); Chloride 113 meq/L (98-107); Glucose,Random 64 mg/dL (74-106); Lipase 207 U/L (73-393); Sodium 145 meq/L (136-145)
[2017-11-19 04:58] LABS: Glomerular Filtration Rate Greater Than 89 mL/min (>89)
[2017-11-19 05:02] LABS: Potassium 2.9 meq/L (3.5-5.1)
[2017-11-19 05:13] LABS: Total Protein 5.1 g/dL (6.4-8.2)
[2017-11-19] MEDS: Potassium Chlor 10 mEq Premix 10 MEQ/100 ML PIGGYBACK IV.SIG SCH ×2 (05:41→07:49)
[2017-11-19] MEDS: Insulin NovoLOG Aspart Correctional Sugar Inj SQ SCH (09:03)
--- NOTE | 2017-11-19 09:10 | P.DS ---
Date of admission: 11/17/17 08:14 Primary care physician: No Primary Care Physician Brief History from admission: Mr. Umaña is a 52-year-old male patient with a known medical history of noncompliance with type 2 diabetes, hypertension, history of substance/cocaine abuse came into the ED with complaints of nausea and vomiting 3 days. Patient states over the past 3 days he has felt dizzy, no energy and has been unable to eat anything by mouth without nausea. Patient states that he does not have a PCP but follows with [facility], last seen three weeks ago with no changes to his medications, who manages and prescribes his insulin. Per patient, he has been prescribed NPH 40 units 3 times daily as well as insulin sliding scale , averaging roughly 15 units of Novolin R before each meal. Further into the conversation patient admitted that he has not been checking his blood sugars the way he should be and has been relatively noncompliant with his insulin therapy. Patient does deny any alcohol use or illicit drug use. Toxicology screen negative in ED. Initial VBG showed pH 6.9/26/43, with a base excess of - 24.5. Blood sugar was initially 1237, potassium 8.2, beta hydroxybutyrate 13.75 consistent with severe DKA. Patient was given 6 units IV of Novolin regular insulin as well as 3 L NS bolus. DKA protocol was initiated. It should also be noted that patient presented with leukocytosis with left band shift, white blood cells 29.4 with lactic acid 3.7. Lipase 1114. Likely secondary to acute pancreatitis. Patient denies any alcohol abuse. An abdominal CT has been ordered and pending. He denies any recent fever, cough, shortness of breath. UA negative. Chest x-ray insignificant. DS: Diagnosis - Discharge Diagnosis (1) Diabetic ketoacidosis Status: Acute (2) Acute pancreatitis Status: Acute (3) Acute kidney injury Status: Acute (4) Severe sepsis Status: Acute (5) High anion gap metabolic acidosis Status: Acute (6) Hyperkalemia Status: Acute (7) Hyponatremia Status: Acute (8) MRSA nasal colonization Status: Acute DS: Medications - Discharge Medications Prescriptions: azithromycin [Zithromax Z-Aly] 500 mg PO DAILY #4 tab insulin aspart U-100 [Novolog U-100 Insulin aspart] 5 unit SUB-Q ACHS #30 syr insulin detemir U-100 [Levemir U-100 Insulin] 10 unit SUB-Q BID #31 dose Novolin N NPH U-100 Insulin 5 units SUB-Q TIDAC #30 syr DS: Summary Hospital Course: Patient is a 52-year-old gentleman treated for DKA. His poorly controlled diabetes 2 to inadequate ability to afford his insulin. I spent some time discharge planning with the inpatient and outpatient pharmacist to try to come up with a solution for this patient's management. Unfortunately he will need both long-acting and short insulin to improve his overall health and reduce negative outcomes from uncontrolled diabetes. He is prescribed both Levemir and Novolin. Is available with outpatient pharmacy at minimal cost and the Levemir will need to be financially managed by the patient. He did have some episode of hypotension which improved. He was treated also for pneumonia with antibiotics and did very well. - Time Spent with Patient Total time spent providing and/or coordinating discharge services: Greater than 30 minutes - Quality: VTE Deep Vein Thrombosis/Pulmonary Embolism Present on Admission: No Exam Vital signs: Vital Signs 11/18/17 10:00 11/18/17 11:00 11/18/17 12:00 Temperature 97.8 F Pulse Rate 64 68 68 Respiratory Rate 28 H 25 H 21 Blood Pressure 104/65 107/61 105/63 Pulse Oximetry 96 93 L 95 11/18/17 13:00 11/18/17 14:00 11/18/17 15:00 Temperature Pulse Rate 68 60 66 Respiratory Rate 24 24 20 Blood Pressure 98/60 L 105/63 105/77 Pulse Oximetry 94 L 94 L 96 11/18/17 16:00 11/18/17 17:00 11/18/17 18:00 Temperature 98.1 F Pulse Rate 64 74 72 Respiratory Rate 21 22 24 Blood Pressure 107/70 116/72 112/64 Pulse Oximetry 95 96 95 11/18/17 19:00 11/18/17 20:00 11/18/17 21:00 Temperature 98.2 F 98.2 F Pulse Rate 64 64 73 Respiratory Rate 30 H 30 H Blood Pressure 108/69 108/64 Pulse Oximetry 11/19/17 00:00 11/19/17 04:00 11/19/17 08:00 Temperature 98.7 F 98.7 F 98.8 F Pulse Rate 68 66 74 Respiratory Rate 24 30 H Blood Pressure 104/60 107/60 120/68 Pulse Oximetry 93 L 97 98 Intake & Output 11/18/17 11/19/17 11/19/17 18:59 06:59 18:59 Intake Total 2040 / 2040 1240 / 1240 100 / 100 Output Total 550 / 550 200 / 200 Balance 1490 / 1490 1040 / 1040 100 / 100 Weight 79.3 kg Intake: IV 1000 / 1000 1000 / 1000 100 / 100 1/2 Normal Saline Inj 1,000 ML 1000 / 1000 1000 / 1000 @ 125 mls/hr IV.CONT .Q8H [facility] Rx#:[id number] KCl 10 mEq Premix Inj 10 meq In 100 / 100 100 ml @ 50 mls/hr IV.SIG Q2H [facility] Rx#:[id number] Oral 1040 / 1040 240 / 240 Output: Urine 550 / 550 200 / 200 Other: Date of Last Bowel Movement 11/17/17 Narrative: GENERAL: Patient calm resting and without complaints SKIN: Warm and dry. No rashes or ecchymotic injuries EYES: Pupils equal and round. No scleral icterus. No injection or drainage. ENT: External ear exam normal. No acute nasal bleeding or discharge. Mucous membranes pink and moist. CARDIOVASCULAR: Regular rate and rhythm. No murmurs gallops or rubs appreciated RESPIRATORY: Good air flow and effort without accessory muscle use. Clear to auscultation. Breath sounds equal bilaterally. GASTROINTESTINAL: Abdomen soft, non-tender, nondistended. Hepatic and splenic margins not palpable. MUSCULOSKELETAL: Extremities without clubbing, cyanosis, or edema. No obvious deformities. NEUROLOGICAL: Awake and alert. No obvious cranial nerve deficits. Motor grossly within normal limits. Five out of 5 muscle strength in the arms and legs. Normal speech. Results Procedures completed during hospitalization: None Labs on day of discharge: Labs from last 24 hours 11/19/17 11/19/17 11/19/17 08:15 04:20 04:20 WBC 9.7 RBC 3.63 L Hgb 11.4 L Hct 33.8 L MCV 93.2 MCH 31.5 MCHC 33.9 RDW 12.8 Plt Count 126 L MPV 7.9 Sodium 145 Potassium 2.9 L* Chloride 113 H D Carbon Dioxide 24.8 Anion Gap 7 BUN 10 Creatinine 0.80 Estimated GFR Greater than 89 POC Glucose 70 Random Glucose 64 L Calcium 7.4 L* Prot Corrected Calcium 8.5 Total Protein 5.1 L Lipase 207 11/18/17 11/18/17 11/18/17 20:21 16:52 11:57 WBC RBC Hgb Hct MCV MCH MCHC RDW Plt Count MPV Sodium Potassium Chloride Carbon Dioxide Anion Gap BUN Creatinine Estimated GFR POC Glucose 164 H 111 H 179 H Random Glucose Calcium Prot Corrected Calcium Total Protein Lipase Preliminary micro results at discharge 11/17/17 19:10 Aerobic Blood Culture - Preliminary Blood - Peripheral gram positive cocci Anaerobic Blood Culture - Preliminary No growth in 1 day 11/17/17 19:35 Aerobic Blood Culture - Preliminary Blood - Peripheral No growth in 1 day Anaerobic Blood Culture - Preliminary No growth in 1 day - Impressions ITS Impressions Chest X-Ray 11/17/17 06:44 CONCLUSION: No acute cardiopulmonary disease. Abdomen/Pelvis CT 11/17/17 08:35 CONCLUSION: Bilateral lower lobe pneumonia worse on the left and there is also a lipoma in the patient's right lower chest posteriorly in the soft tissues. Discharge Plan - Discharge Disposition Patient Disposition: 01 Discharge Home - Discharge Condition Condition: Stable - Discharge Order Discharge Orders: Discharge Order (Routine); Ordered 11/19/17 Ordered By: Ashly Rolon - Discharge Details Anticipated Discharge Date: 11/19/17 - Physicians Team Primary Care Provider: Primary Care Medina,Bette Attending Provider: Ashly Rolon
[2017-11-19] MEDS: Calcium Carbonate 500 MG Tablet PO SCH (09:11)
[2017-11-19] MEDS: Famotidine 20 MG Tablet PO SCH (09:11)
[2017-11-19] MEDS: Mupirocin 2% Nasal Oint Topical Syringe EACH NARE SCH (09:12)
[2017-11-19] MEDS: Insulin Detemir Inj 1,000 UNIT/10 ML Vial SQ SCH (09:12)
[2017-11-19 22:13] LABS: Hemoglobin A1c 14.9 % (4.3-6.0)
== END 2017-11-19 10:27 | disposition home or self-care (01) ==
LOC: PHED 06:20 → PHEDA 08:14 → PHICU 09:00
PROVIDERS: ADMIT Hospitalist; ATTEND Hospitalist
DX: Z91.19 Patient's noncompliance with other medical treatment and regimen; Z22.322 Carrier or suspected carrier of Methicillin resistant Staphylococcus aureus; F14.10 Cocaine abuse, uncomplicated; E87.0 Hyperosmolality and hypernatremia; E87.1 Hypo-osmolality and hyponatremia; Z91.14 Patient's other noncompliance with medication regimen; Z79.4 Long term (current) use of insulin; E86.0 Dehydration; A41.9 Sepsis, unspecified organism; E11.10 Type 2 diabetes mellitus with ketoacidosis without coma; E83.39 Other disorders of phosphorus metabolism; N17.9 Acute kidney failure, unspecified; K85.90 Acute pancreatitis without necrosis or infection, unspecified; R65.20 Severe sepsis without septic shock; J18.9 Pneumonia, unspecified organism; E87.5 Hyperkalemia; I10 Essential (primary) hypertension; F17.210 Nicotine dependence, cigarettes, uncomplicated